=== PATIENT | male | born 1970 | race African-American/Black ===

== ENCOUNTER 2016-07-06 11:48 | Emergency (ER) | payer BC ==
[2016-07-06 12:02] VITALS: BP 154/91
[2016-07-06] MEDS ORDERED: Aspirin Low Dose CHEW TAB* 81 MG PO ONE (12:20)
--- NOTE | 2016-07-06 12:40 | UC ---
Alex Ennis Adam, scribed for Mirtha Blue MD on 07/06/16 at 1154 . Cardiac HPI - HPI Summary HPI Summary: Pt is a 46 year old male presenting with chest pain x 2 days. Pain awoke pt Tuesday am. Has had pain on and off since then. Pain was "bad." Accompanied by chest tightness, hard to take deep breath. No sob perse. Some nausea, no vomiting. Appetite ok, mostly eats at night. ? diaphoresis? No rash. No recent illness. No new new numbness nor weakness, does have chronic sciatica w / p/d L leg. No b/b leakage. ? difficulty word formulating? on Tuesday. No report of recent travel. Denies known hx of NH. Is being tx'd for inc cholesterol, htn (?), via pcp in [facility]. + FMHx of NH (grandmother) CVA (mother), and liver failure from EtOH (father). Pt's PCP is at [facility] in [place], [place]. - History of Current Complaint Stated Complaint: CHEST PAIN Time Seen by Provider: 07/06/16 11:52 Hx Obtained From: Patient Onset/Duration: Sudden Onset, Lasting Days, Still Present Timing: Intermittent Episodes Lasting: - Minutes Initial Severity: Moderate Current Severity: Moderate Chest Pain Location: Diffuse Character: Tightness Aggravating: Exertion Alleviating: Rest Associated Signs & Symptoms: Positive: Dizziness, Nausea/Vomiting - No Vomiting , Abdominal Pain - Risk Factors Cardiac Risk Factors: Smoking, Elevated Lipids, Family History - Allergy/Home Medications Allergies/Adverse Reactions: Allergies Allergy/AdvReac Type Severity Reaction Status Date / Time No Known Allergies Allergy Verified 07/06/16 11:55 Home Medications: Home Medications Amlodipine Besylate [Norvasc] 07/06/16 [History] Atorvastatin* [Lipitor 10 MG*] 07/06/16 [History] Hydrochlorothiazide [Microzide-] 07/06/16 [History] PMH/Surg Hx/FS Hx/Imm Hx Previously Healthy: No - see hpi Endocrine History Of: Reports: Dyslipidemia Cardiovascular History Of: Denies: Myocardial Infarction - Family History Known Family History: Positive: Cardiac Disease - [place] (grandmother), Other - CVA (mother), liver failure from EtOH (father) - Social History Occupation: Employed Full-time Lives: With Family Alcohol Use: Occasionally Smoking Status (MU): Current Some Day Smoker Review of Systems Constitutional: Negative Skin: Negative Eyes: Negative ENT: Negative Respiratory: Shortness Of Breath Cardiovascular: Chest Pain Gastrointestinal: Other - see hpi Genitourinary: Negative Motor: Negative Neurovascular: Negative Musculoskeletal: Negative Neurological: Negative Psychological: Negative All Other Systems Reviewed And Are Negative: Yes - Comments Additional Review of Systems Comments: See HPI Physical Exam Triage Information Reviewed: Yes Appearance: Well-Nourished Vital Signs: Initial Vital Signs Temp 98.5 F 07/06/16 11:56 Pulse 98 07/06/16 11:56 Resp 16 07/06/16 11:56 BP 154/91 07/06/16 11:56 Pulse Ox 98 07/06/16 11:56 Vital Signs Reviewed: Yes Eye Exam: Normal ENT Exam: Normal Neck exam: Normal Respiratory: Positive: Chest non-tender - no focal tenderness reproduced; however, points to left ant / lat area as area of pain., Lungs clear, Normal breath sounds, No respiratory distress, No accessory muscle use Cardiovascular Exam: Normal Cardiovascular: Positive: RRR, No Murmur, Pulses Normal, Brisk Capillary Refill Abdominal Exam: Normal Abdomen Description: Positive: Nontender, No Organomegaly, Soft Bowel Sounds: Positive: Present Musculoskeletal Exam: Normal Neurological Exam: Normal Psychological Exam: Normal Skin Exam: Normal - Additional Comments * Appearance: Well-Nourished * Eye Exam: Normal * ENT Exam: Normal * Neck exam: Normal, No adenopathy appreciated * Respiratory Exam: Normal, no dyspnea, no tachypnea, normal respiratory rate * Cardiovascular Exam: Normal * Cardiovascular: Heart rate regular, good general skin color, good capillary refill * Abdominal Exam: Normal * Abdomen Description: Nontender, No Organomegaly, Soft * Bowel Sounds: Present * Musculoskeletal Exam: Normal * Musculoskeletal: Strength Intact * Neurological Exam: Normal: nonfocal, grossly intact * Psychological Exam: Normal: conversing easily and appropriately Skin Exam: Normal: no visible or reported rash Diagnostics - Laboratory Diagnostic Studies Completed/Ordered: EKG at 11:58. 90 BPM. Nonspecific T abnormalities. - Assessment/Plan Course Of Treatment: Recommend further evaluation and management in the ED. 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 Reviewed EKG (no old available for comparison). ASA 81 mg po x 4 administered here. Patient was offered and encouraged EMS transport to the ED but he politely but firmly declines. He states that he understands the risks of doing so. His significant other will drive him to the ED instead. Questions answered to the best of my ability. - Clinical Impression Provider Diagnoses: Chest pain Discharge - Discharge Plan Condition: Stable Disposition: AGAINST MEDICAL ADVICE Discharge Disposition Comment: Patient declines ambulance and will have family member drive him to the ED. Referrals: No Primary Care Phys,NOPCP [Primary Care Provider] - The documentation as recorded by the Alex keane Adam accurately reflects the service I personally performed and the decisions made by me, Mirtha Blue MD.
== END 2016-07-06 12:40 | disposition left against medical advice (07) ==
LOC: UCEAST 11:48
DX: R07.89 Other chest pain (principal); R42 Dizziness and giddiness; R11.0 Nausea; E78.5 Hyperlipidemia, unspecified; Z72.0 Tobacco use
CPT/HCPCS: 93005; 99202; A9270-GY; G0463

== ENCOUNTER 2016-07-06 13:03 | Emergency (ER) | payer BC ==
[2016-07-06 14:35] LABS: Hematocrit 37 % (42-52); Hemoglobin 13.2 g/dl (14.0-18.0); Mean Corpuscular HGB Conc 36 g/dl (31-36); Mean Corpuscular Hemoglobin 31 pg (27-31); Mean Corpuscular Volume 86 fL (80-94); Mean Platelet Volume 8 um3 (7.4-10.4); Red Blood Count 4.34 10^6/ul (4.0-5.4); Red Cell Distribution Width 13 % (10.5-15); White Blood Count 6.4 10^3/ul (3.5-10.8)
[2016-07-06 14:51] LABS: Albumin 4.9 g/dL (3.2-5.2); BUN/Creatinine Ratio 14.3 (8-20); Calcium 9.8 mg/dL (8.6-10.3); EGFR African American 91.6 (>60); EGFR Non-African American 71.2 (>60); Globulin 2.8 g/dL (2-4); Potassium 3.2 mmol/L (3.5-5.0); Total Bilirubin 0.7 mg/dL (0.2-1.0); Total Protein 7.7 g/dL (6.4-8.9)
--- NOTE | 2016-07-06 14:52 | RAD ---
HISTORY: Chest pain COMPARISONS: None VIEWS: 2: Frontal dual-energy and lateral views of the chest. FINDINGS: CARDIOMEDIASTINAL SILHOUETTE: The cardiomediastinal silhouette is normal. BIANCA: The bianca are normal. PLEURA: The costophrenic angles are sharp. No pleural abnormalities are noted. LUNG PARENCHYMA: The lungs are clear. ABDOMEN: The upper abdomen is clear. There is no subphrenic gas. BONES AND SOFT TISSUES: No bone or soft tissue abnormalities are noted. OTHER: None. IMPRESSION: NO ACTIVE CARDIOPULMONARY DISEASE.
[2016-07-06 15:06] VITALS: BP 140/90
--- NOTE | 2016-07-06 20:36 | ED ---
Marlena Ennis Anna, scribed for Arnold Johnson MD on 07/06/16 at 1407 . HPI Chest Pain - HPI Summary HPI Summary: Patient is a 46 y/o male coming to [facility] presenting with constant, waxing and waning diffuse chest pain that began two days ago. His chest still has some tightness, but the pain has mostly resolved. The pain is described as a severity of 5/10 and is exacerbated by smoking a cigarette. He has had trouble sleeping and has experienced nausea, lightheadedness, dizziness, visual stars, and diaphoresis. The dizziness is exacerbated by deep breaths. He is an everyday smoker. His history is significant for HTN. He has a standing appointment with his PCP, Dr. Kirkpatrick, two days from now. - History of Current Complaint Chief Complaint: EDChestWallPain Time Seen by Provider: 07/06/16 13:59 Hx Obtained From: Patient, Family/Fourth Hand - Accompanied by family Timing: Constant Initial Severity: Moderate Current Severity: Mild Pain Intensity: 5 Pain Scale Used: 0-10 Numeric Chest Pain Location: Diffuse Character: Tightness Aggravating Factor(s): Other: - Smoking a cigarette - Allergy/Home Medications Allergies/Adverse Reactions: Allergies Allergy/AdvReac Type Severity Reaction Status Date / Time No Known Allergies Allergy Verified 07/06/16 11:55 PMH/Surg Hx/FS Hx/Imm Hx Cardiovascular History: Reports: Hx Hypertension Denies: Hx Myocardial Infarction Infectious Disease History: Yes Infectious Disease History: Reports: 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- has been cleared Denies: Traveled Outside the [place] in Last 30 Days - Family History Known Family History: Positive: Cardiac Disease - [place] (grandmother), Other - CVA (mother), liver failure from EtOH (father) - Social History Lives: With Family Alcohol Use: Weekly Alcohol Amount: 6 pack at 1 time Substance Use Type: Reports: None Smoking Status (MU): Current Some Day Smoker Type: Cigarettes Review of Systems Positive: Skin Diaphoresis, Other - difficulty sleeping Positive: Other - visual "stars" Positive: Chest Pain Positive: Nausea Neurological: Other - lightheadedness, dizziness All Other Systems Reviewed And Are Negative: Yes Physical Exam Triage Information Reviewed: Yes Vital Signs On Initial Exam: Initial Vitals Temp Pulse Resp BP Pulse Ox 98.0 F 95 18 142/95 99 07/06/16 13:05 07/06/16 13:05 07/06/16 13:05 07/06/16 13:05 07/06/16 13:05 Vital Signs Reviewed: Yes Appearance: Positive: Well-Appearing, No Pain Distress, Obese Skin: Positive: Warm, Skin Color Reflects Adequate Perfusion, Dry Head/Face: Positive: Normal Head/Face Inspection Eyes: Positive: Normal ENT: Positive: Normal ENT inspection Neck: Positive: Supple, Nontender Respiratory/Lung Sounds: Positive: Clear to Auscultation, Breath Sounds Present Cardiovascular: Positive: RRR Abdomen Description: Positive: Nontender, Soft Musculoskeletal: Positive: Normal Neurological: Positive: Normal Psychiatric: Positive: Affect/Mood Appropriate - [place] Coma Scale Coma Scale Total: 15 Diagnostics - Vital Signs Vital Signs Temp Pulse Resp BP Pulse Ox 07/06/16 13:31 86 19 98 07/06/16 13:30 132/91 07/06/16 13:29 140/96 07/06/16 13:05 98.0 F 95 18 142/95 99 - Laboratory Lab Results: Lab Results 07/06/16 07/06/16 07/06/16 Range/Units 14:28 14:28 14:28 WBC 6.4 (3.5-10.8) 10^3/ul RBC 4.34 (4.0-5.4) 10^6/ul Hgb 13.2 L (14.0-18.0) g/dl Hct 37 L (42-52) % MCV 86 (80-94) fL MCH 31 (27-31) pg MCHC 36 (31-36) g/dl RDW 13 (10.5-15) % Plt Count 174 (150-450) 10^3/ul MPV 8 (7.4-10.4) um3 Neut % (Auto) 59.5 (38-83) % Lymph % (Auto) 31.1 (25-47) % [place] % (Auto) 7.4 (1-9) % Eos % (Auto) 1.5 (0-6) % Baso % (Auto) 0.5 (0-2) % Absolute Neuts (auto) 3.8 (1.5-7.7) 10^3/ul Absolute Lymphs (auto) 2.0 (1.0-4.8) 10^3/ul Absolute Monos (auto) 0.5 (0-0.8) 10^3/ul Absolute Eos (auto) 0.1 (0-0.6) 10^3/ul Absolute Basos (auto) 0 (0-0.2) 10^3/ul Absolute Nucleated RBC 0.01 10^3/ul Nucleated RBC % 0.1 D-Dimer, Quantitative (Less Than 230) ng/mL Sodium 135 (133-145) mmol/L Potassium 3.2 L (3.5-5.0) mmol/L Chloride 99 L (101-111) mmol/L Carbon Dioxide 29 (22-32) mmol/L Anion Gap 7 (2-11) mmol/L BUN 16 (6-24) mg/dL Creatinine 1.12 (0.67-1.17) mg/dL Est GFR ( Amer) 91.6 (>60) Est GFR (Non-Af Amer) 71.2 (>60) BUN/Creatinine Ratio 14.3 (8-20) Glucose 97 (70-100) mg/dL Lactic Acid (0.5-2.0) mmol/L Calcium 9.8 (8.6-10.3) mg/dL Total Bilirubin 0.70 (0.2-1.0) mg/dL AST 43 H (13-39) U/L ALT 77 H (7-52) U/L Alkaline Phosphatase 28 L (34-104) U/L Troponin I 0.00 (<0.04) ng/mL Total Protein 7.7 (6.4-8.9) g/dL Albumin 4.9 (3.2-5.2) g/dL Globulin 2.8 (2-4) g/dL Albumin/Globulin Ratio 1.8 (1-3) HIV 1&2 Antibody Nonreactive (Nonreactive) 07/06/16 07/06/16 Range/Units 14:28 14:28 WBC (3.5-10.8) 10^3/ul RBC (4.0-5.4) 10^6/ul Hgb (14.0-18.0) g/dl Hct (42-52) % MCV (80-94) fL MCH (27-31) pg MCHC (31-36) g/dl RDW (10.5-15) % Plt Count (150-450) 10^3/ul MPV (7.4-10.4) um3 Neut % (Auto) (38-83) % Lymph % (Auto) (25-47) % [place] % (Auto) (1-9) % Eos % (Auto) (0-6) % Baso % (Auto) (0-2) % Absolute Neuts (auto) (1.5-7.7) 10^3/ul Absolute Lymphs (auto) (1.0-4.8) 10^3/ul Absolute Monos (auto) (0-0.8) 10^3/ul Absolute Eos (auto) (0-0.6) 10^3/ul Absolute Basos (auto) (0-0.2) 10^3/ul Absolute Nucleated RBC 10^3/ul Nucleated RBC % D-Dimer, Quantitative < 200 (Less Than 230) ng/mL Sodium (133-145) mmol/L Potassium (3.5-5.0) mmol/L Chloride (101-111) mmol/L Carbon Dioxide (22-32) mmol/L Anion Gap (2-11) mmol/L BUN (6-24) mg/dL Creatinine (0.67-1.17) mg/dL Est GFR ( Amer) (>60) Est GFR (Non-Af Amer) (>60) BUN/Creatinine Ratio (8-20) Glucose (70-100) mg/dL Lactic Acid 1.0 (0.5-2.0) mmol/L Calcium (8.6-10.3) mg/dL Total Bilirubin (0.2-1.0) mg/dL AST (13-39) U/L ALT (7-52) U/L Alkaline Phosphatase (34-104) U/L Troponin I (<0.04) ng/mL Total Protein (6.4-8.9) g/dL Albumin (3.2-5.2) g/dL Globulin (2-4) g/dL Albumin/Globulin Ratio (1-3) HIV 1&2 Antibody (Nonreactive) Result Diagrams: 07/06/16 14:28 07/06/16 14:28 Lab Statement: Any lab studies that have been ordered have been reviewed, and results considered in the medical decision making process. - Radiology CXR Xray Interpretation: No Acute Changes Radiology Interpretation Completed By: Radiologist - IMPRESSION: NO ACTIVE CARDIOPULMONARY DISEASE. - EKG 1326 Cardiac Rate: NL - 79 bpm EKG Rhythm: Sinus Rhythm ST Segment: Normal Ectopy: None Chest Pain Course/Dx - Course Course Of Treatment: Mr. Chang presented with steady chest pain that waxed and waned for 2-3 days. His W/U was negative and I doubt that anything dangerous is happening. I will D/C him for close F/U. - Diagnoses Provider Diagnoses: Chest pain Discharge - Discharge Plan Condition: Stable Disposition: HOME Patient Education Materials: Chest Pain (ED), Chest Wall Pain (ED) Referrals: [facility] PHYSICIAN REFERRAL [Outside] Additional Instructions: Follow up with primary care physician within 48 hours. Return to the emergency department for changing or worsening symptoms. The documentation as recorded by the Marlena keane Anna accurately reflects the service I personally performed and the decisions made by me, Arnold Johnson MD.
== END 2016-07-06 15:36 | disposition home or self-care (01) ==
LOC: ED 13:03
DX: R07.9 Chest pain, unspecified (principal); R61 Generalized hyperhidrosis; R11.0 Nausea; Z72.0 Tobacco use
CPT/HCPCS: 36415; 71020; 80053; 83605; 84484; 85025; 85379; 86703; 93005; 99282

== ENCOUNTER 2016-09-09 10:17 | Emergency (ER) | payer BC, OTHER ==
[2016-09-09 10:32] VITALS: BP 136/80
--- NOTE | 2016-09-09 10:49 | UC ---
Respiratory Complaint HPI - HPI Summary HPI Summary: Woke today with nasal congestion, joint aches, temp over 100F, cough, ST. Denies wheezing or vomiting. 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 - History of Current Complaint Chief Complaint: UCGeneralIllness Stated Complaint: FEVER COUGH CONGESTION Time Seen by Provider: 09/09/16 10:37 Hx Obtained From: Patient Onset/Duration: Sudden Onset, Lasting Hours Timing: Constant Severity Initially: Moderate Severity Currently: Moderate Character: Cough: Nonproductive Aggravating Factors: Exertion, Deep Breaths, Recumbent Position Alleviating Factors: Upright Position Associated Signs And Symptoms: Positive: Fever, Chills, URI, Nasal Congestion - Allergies/Home Medications Allergies/Adverse Reactions: Allergies Allergy/AdvReac Type Severity Reaction Status Date / Time No Known Allergies Allergy Verified 09/09/16 10:32 PMH/Surg Hx/FS Hx/Imm Hx Endocrine History Of: Reports: Dyslipidemia Cardiovascular History Of: Reports: Cardiac Disorders - high cholesterol, Hypertension Denies: Myocardial Infarction - Surgical History Surgical History: None - Family History Known Family History: Positive: Cardiac Disease - [place] (grandmother), Other - CVA (mother), liver failure from EtOH (father) - Social History Occupation: Employed Full-time Lives: With Family Alcohol Use: Weekly Alcohol Amount: 6 pack at 1 time Substance Use Type: None Smoking Status (MU): Current Some Day Smoker Type: Cigarettes Amount Used/How Often: 4 per day Cessation Counseling: Patient Advised to Stop Review of Systems Constitutional: Fever, Chills, Fatigue Skin: Negative Eyes: Negative ENT: Sore Throat, Nasal Discharge Respiratory: Cough Cardiovascular: Negative Gastrointestinal: Negative Genitourinary: Negative Motor: Negative Neurovascular: Negative Musculoskeletal: Negative Neurological: Negative Psychological: Negative All Other Systems Reviewed And Are Negative: Yes Physical Exam Triage Information Reviewed: Yes Appearance: Well-Appearing, Well-Nourished Vital Signs: Initial Vital Signs Temp 98.6 F 09/09/16 10:29 Pulse 91 09/09/16 10:29 Resp 18 09/09/16 10:29 BP 136/80 09/09/16 10:29 Pulse Ox 98 09/09/16 10:29 Vital Signs Reviewed: Yes Eye Exam: Normal Eyes: Positive: Conjunctiva Clear ENT: Positive: Pharynx normal, Nasal congestion, Nasal drainage, TMs normal. Negative: Tonsillar swelling, Tonsillar exudate Dental Exam: Normal Dental: Negative: Percussion Tenderness @ Neck exam: Normal Neck: Positive: Supple, Nontender, No Lymphadenopathy Respiratory Exam: Normal Respiratory: Positive: Chest non-tender, Lungs clear, Normal breath sounds, No respiratory distress, No accessory muscle use Cardiovascular Exam: Normal Cardiovascular: Positive: RRR Musculoskeletal Exam: Normal Musculoskeletal: Positive: ROM Intact Neurological Exam: Normal Neurological: Positive: Alert Psychological Exam: Normal Skin Exam: Normal UC Diagnostic Evaluation - Laboratory O2 Sat by Pulse Oximetry: 98 Respiratory Course/Dx - Differential Dx/Diagnosis Provider Diagnoses: URI, likely viral Discharge - Discharge Plan Condition: Stable Disposition: HOME Patient Education Materials: Upper Respiratory Infection (ED) Forms: *Work Release Additional Instructions: Rapid flu negative.
== END 2016-09-09 11:15 | disposition home or self-care (01) ==
LOC: UCEAST 10:17
DX: J06.9 Acute upper respiratory infection, unspecified (principal); F17.210 Nicotine dependence, cigarettes, uncomplicated; I10 Essential (primary) hypertension
CPT/HCPCS: 87502; 99211; G0463

== ENCOUNTER 2016-09-13 16:50 | Emergency (ER) | payer OTHER ==
[2016-09-13] MEDS ORDERED: EPINEPHrine AMP 1 MG/ML IM ONE (17:48)
[2016-09-13] MEDS ORDERED: methylPREDNISolone 125 MG* 2 ML VIAL IV ONE (17:49)
[2016-09-13] MEDS ORDERED: diPHENhydraMINE IV* 50 MG/ML 1 ml VIAL (BENADRYL) IV ONE (17:50)
[2016-09-13] MEDS ORDERED: Famotidine IV* 10 MG/ML 2 ML (20 mg) IV SLOW PU ONE (17:50)
--- NOTE | 2016-09-13 17:58 | UC ---
rosario Ennis Timothy, scribed for Meli Johnson MD on 09/13/16 at 1732 . 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 He denies any sensation of being stung. He states within 30 minutes the right side of his lip was very swollen. Swelling is only present on his top lip. He is also experiencing some diffuse pruritis with no visible rash. He denies any trouble swallowing, SOB, hoarseness, CP, tongue swelling, nausea, vomiting, or any allergies or current pain. He was stung by a bee 2 years ago with no allergic reaction. He is not in any current pain. His MHx includes HLD, HTN, tobacco use. - History of Current Complaint Chief Complaint: UCAllergicReaction Stated Complaint: SWOLLEN LIP SUDDEN ONSET Time Seen by Provider: 09/13/16 17:32 Hx Obtained From: Patient Onset/Duration: Sudden Onset, Lasting Hours, Still Present Severity Initially: Moderate Severity Currently: Moderate Pain Intensity: 0 Pain Scale Used: 0-10 Numeric Location: Discrete @ - upper lip Character: Swelling Aggrevating Factor(s): Nothing Alleviating Factor(s): Nothing Associated Signs And Symptoms: Positive: Negative. Negative: Chest Pain, Difficulty Breathing, Hoarseness, Nausea, Throat Tightening, Vomiting - Related Hx Possible Reaction To: Insect - Allergies/Home Medications Allergies/Adverse Reactions: Allergies Allergy/AdvReac Type Severity Reaction Status Date / Time No Known Allergies Allergy Verified 09/13/16 17:06 PMH/Surg Hx/FS Hx/Imm Hx Endocrine History Of: Reports: Dyslipidemia Denies: Diabetes, Thyroid Disease Cardiovascular History Of: Reports: Hypertension Denies: Myocardial Infarction Respiratory History Of: Denies: COPD, Asthma GI/ History Of: Denies: Ulcer - Surgical History Surgical History: None Surgery Procedure, Year, and Place: denies - Family History Known Family History: Positive: Cardiac Disease - [place] (grandmother), Other - CVA (mother), liver failure from EtOH (father) - Social History Occupation: Employed Full-time Lives: With Family Alcohol Use: Weekly Alcohol Amount: 6 pack at 1 time Substance Use Type: None Smoking Status (MU): Current Some Day Smoker Type: Cigarettes Amount Used/How Often: 4 per day - Immunization History Most Recent Influenza Vaccination: denies Review of Systems Constitutional: Negative Skin: Other - upper lip swelling, diffuse pruritus without noticeable rash Eyes: Negative ENT: Negative Respiratory: Negative Cardiovascular: Negative Gastrointestinal: Negative Genitourinary: Negative Motor: Negative Neurovascular: Negative Musculoskeletal: Negative Neurological: Negative Psychological: Negative All Other Systems Reviewed And Are Negative: Yes Physical Exam Triage Information Reviewed: Yes Appearance: No Pain Distress, Well-Nourished, Ill-Appearing Vital Signs: Initial Vital Signs Temp 97.3 F 09/13/16 17:00 Pulse 86 09/13/16 17:00 Resp 18 09/13/16 17:00 BP 127/82 09/13/16 17:00 Pulse Ox 100 09/13/16 17:00 Vital Signs Reviewed: Yes Eyes: Positive: Conjunctiva Clear ENT: Positive: Normal ENT inspection, Hearing grossly normal, Pharynx normal - no uvula edema, TMs normal, Other: - no tongue swelling. Negative: Muffled/ hoarse voice Neck: Positive: Supple, Nontender, No Lymphadenopathy Respiratory: Positive: Lungs clear, Normal breath sounds, No respiratory distress. Negative: Wheezing Cardiovascular: Positive: RRR, No Murmur, Pulses Normal, Brisk Capillary Refill Musculoskeletal: Positive: Strength Intact, ROM Intact Neurological: Positive: Alert, Muscle Tone Normal Psychological Exam: Normal Psychological: Positive: Age Appropriate Behavior Skin: Positive: Other - swelling of the upper lip, no obvious sign of insect sting on the lip, no rash or hives noted Allergic Reaction Course/Dx - Course Course Of Treatment: Carmelo Chang is a 46 yo male presenting to [facility] with swelling of his upper lip since 1430 today while working outside. He denies any throat tightening. PT medication list reviewed this visit. Pt received epinepherine, benadryl, pepcid, and Solu-Medrol at [facility]. After clinical examination as well as discussion with Dr. Flowers, he will be transferred to [facility] by ambulance for further observation and evaluation of his acute allergic reaction. - Differential Dx/Diagnosis Differential Diagnosis/HQI/PQRI: Anaphylaxis, Angioedema, Local Allergic Reaction Provider Diagnoses: acute allergic reaction with lip swelling - Physician Notification/Consults Discussed Patient Care With: 1745 - Dr. Flowers ([facility]) - discussed Pt condition, accepts Pt for transfer. 175 - [facility] - discussed Pt condition, requested ambulance for transfer. Instructed by Provider To: MD Will See In ED Discharge - Discharge Plan Condition: Stable Disposition: TRANS HIGHER LVL OF CARE FAC Discharge Disposition Comment: transferred to [facility] for further observation and evaluation Referrals: No Primary Care Phys,NOPCP [Primary Care Provider] - The documentation as recorded by the rosario keane Timothy accurately reflects the service I personally performed and the decisions made by me, Meli Johnson MD.
[2016-09-13] MEDS ORDERED: NS 0.9% 1000 ML* 1,000 ML IV ONE (17:59)
[2016-09-13 19:49] VITALS: BP 150/84
== END 2016-09-13 18:25 | disposition short-term general hospital (02) ==
LOC: UCEAST 16:50
DX: T78.40XA Allergy, unspecified, initial encounter (principal); X58.XXXA Exposure to other specified factors, initial encounter; K13.0 Diseases of lips; I10 Essential (primary) hypertension; F17.210 Nicotine dependence, cigarettes, uncomplicated; E78.5 Hyperlipidemia, unspecified
CPT/HCPCS: 96361; 96372; 96374; 96375; 99213; G0463; J0171; J1200; J2930

== ENCOUNTER → 2016-09-13 18:41 | Emergency (ER) | payer OTHER ==
[~2016-09-13 18:41] MED LIST: diPHENhydraMINE IV* 50 MG/ML 1 ml VIAL (BENADRYL) IV ONE
--- NOTE | 2016-09-13 20:44 | ED ---
I, Oh,Alysia, scribed for Hans Fletcher MD on 09/13/16 at 1936 . Allergic Reaction/Systemic - HPI Summary HPI Summary: This 46 y/o male presents to ED for swollen lips since 1430 PM today. Negative dyspnea or throat tightening. Pt took benadryl and [facility] where [facility] given epi, benadryl, and pepcida about an hour ago [facility] to ED. Pt states that his lip swelling has only gotten worse and has not been alleviated by meds given at [facility]. Pt denies any known allergies of any kind. - History of Current Complaint Chief Complaint: EDAllergicReaction Time Seen by Provider: 09/13/16 19:28 Hx Obtained From: Patient, Family/Lease Examiner - family member present at bedside Onset/Duration: Sudden Onset Timing: Constant Location: Discrete @ - lips Character: Swelling Aggravating Factor(s): Nothing Alleviating Factor(s): Nothing Associated Signs And Symptoms: Positive: Negative - Allergies/Home Medications Allergies/Adverse Reactions: Allergies Allergy/AdvReac Type Severity Reaction Status Date / Time No Known Allergies Allergy Verified 09/13/16 17:06 PMH/Surg Hx/FS Hx/Imm Hx Endocrine/Hematology History: Denies: Hx Diabetes, Hx Thyroid Disease Cardiovascular History: Reports: Hx Hypertension Denies: Hx Myocardial Infarction Respiratory History: Denies: Hx Asthma, Hx Chronic Obstructive Pulmonary Disease (COPD) GI History: Denies: Hx Ulcer - Surgical History Surgery Procedure, Year, and Place: denies Infectious Disease History: Denies: Hx Clostridium Difficile, Hx Hepatitis, Hx Human Immunodeficiency Virus (HIV), 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- has been cleared, Hx Shingles, Hx Tuberculosis, Hx Known/Suspected VRE, Hx Known/Suspected VRSA, History Other Infectious Disease, Traveled Outside the [place] in Last 30 Days - Family History Known Family History: Positive: Cardiac Disease - [place] (grandmother), Other - CVA (mother), liver failure from EtOH (father) - Social History Alcohol Use: Weekly Alcohol Amount: 6 pack at 1 time Hx Substance Use: No Substance Use Type: Reports: None Hx Tobacco Use: Yes Smoking Status (MU): Current Some Day Smoker Type: Cigarettes Amount Used/How Often: 4 per day Review of Systems Negative: Fever Negative: Other - throat tightening Negative: Shortness Of Breath Positive: Other - localized lip swelling All Other Systems Reviewed And Are Negative: Yes Physical Exam Triage Information Reviewed: Yes Vital Signs Reviewed: Yes Appearance: Positive: Well-Appearing, No Pain Distress Skin: Positive: Warm, Other - swollen upper lip[ Head/Face: Positive: Normal Head/Face Inspection Eyes: Positive: EOMI, GERONIMO ENT: Positive: Pharynx normal, TMs normal, Other - swollen upper lip[ Neck: Positive: Supple, Nontender Respiratory/Lung Sounds: Positive: Clear to Auscultation, Breath Sounds Present Cardiovascular: Positive: RRR Abdomen Description: Positive: Nontender, Soft Bowel Sounds: Positive: Present Musculoskeletal: Positive: Strength/ROM Intact Neurological: Positive: Sensory/Motor Intact, Alert, Oriented to Person Place, Time, Normal Gait Psychiatric: Positive: Anxious AVPU Assessment: Alert Diagnostics - Laboratory Result Diagrams: 09/13/16 21:00 09/13/16 21:00 Lab Statement: Any lab studies that have been ordered have been reviewed, and results considered in the medical decision making process. Re-Evaluation - Re-Evaluation First Eval Re-Evaluation Time: 00:33 Change: Improved Comment: MD in room to re-evaluate pt. pt observed 6 hours in ed, mildly decreased swelling, no sob lungs clwar, will d/c on steroids, benadryl, to f/u with pig handler, return for worsening sxs Allergic Reaction Course/Dx - Diagnoses Provider Diagnoses: Swollen upper lip Discharge - Discharge Plan Condition: Stable Disposition: HOME Prescriptions: Epinephrine [Epipen 2-Kelton] 0.3 mg IM BID #1 inj diPHENhydraMINE PO* [Benadryl PO 25 MG TAB*] 25 mg PO Q6H #20 tab predniSONE TAB* [Deltasone TAB*] 40 mg PO DAILY #8 tab Patient Education Materials: Prednisone (By mouth), Diphenhydramine (By mouth) , Epinephrine (Into the eye), Epinephrine (By injection), General Allergic Reaction (ED) Referrals: Sheeba Kolb [Physician Parlor Maid] - 2 Days The documentation as recorded by the Pepe keane Soohyun accurately reflects the service I personally performed and the decisions made by me, Hans Fletcher MD.
[2016-09-13 21:11] LABS: Hematocrit 38 % (42-52); Hemoglobin 13.3 g/dl (14.0-18.0); Mean Corpuscular HGB Conc 35 g/dl (31-36); Mean Corpuscular Hemoglobin 31 pg (27-31); Mean Corpuscular Volume 89 fL (80-94); Mean Platelet Volume 8 um3 (7.4-10.4); Red Blood Count 4.31 10^6/ul (4.0-5.4); Red Cell Distribution Width 13 % (10.5-15); White Blood Count 9.1 10^3/ul (3.5-10.8)
[2016-09-13 21:26] LABS: BUN/Creatinine Ratio 12.6 (8-20); C Reactive Protein 47.76 mg/L (< 5.00); Calcium 9.5 mg/dL (8.6-10.3); EGFR African American 100.9 (>60); EGFR Non-African American 78.5 (>60); Potassium 3.4 mmol/L (3.5-5.0)
[2016-09-14 03:12] VITALS: BP 133/61
== END | disposition home or self-care (01) ==
LOC: ED 18:41
DX: R22.0 Localized swelling, mass and lump, head (principal)
CPT/HCPCS: 36415; 80048; 85025; 86140; 96374; 99283

== ENCOUNTER 2017-04-04 10:20 | Emergency (ER) | payer OTHER ==
--- NOTE | 2017-04-04 11:58 | UC ---
[facility] HPI <Jordy Polo - Last Filed: 04/04/17 13:12> - HPI Summary HPI Summary: Pt presents with lower left sided dental pain. He tells me that he went to the dentist 4 days ago for a routine cleaning and cavity filling on his right side. The next day he had mild pain in the lower left side of his mouth and gums. This pain has increased every day since. He called his dentist and they advised him to come here for an antibiotic and they will follow up with him on Tuesday ( 4 days from today). He denies fevers, chills, SOB, chest pain, cough, sinus congestion, or sore throat. He is able to eat and drink, but with pain. He has taken some ibuprofen for the pain with mild relief. He also mentions that he has been having right knee pain for the past 1- 1.5months. He denies specific injury, but he is very active at work. 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 He saw his PCP for this about a month ago and he suggested an MRI, but pt wanted to try conservative measures at that time. He is still having pain and occasional swelling of his knee. He feels unstable when walking and feels his knee "clicking" at times. He has been wearing a knee brace at home with mild relief. His BP is high at today's visit. He tells me that he forgot to take his BP medications this morning and usually runs this high or higher when he does not take them. He denies vision changes, headaches, palpitations, or dizziness. - History of Current Complaint Hx Obtained From: Patient Onset/Duration: Gradual Onset Severity: Severe Pain Intensity: 10 Pain Scale Used: 0-10 Numeric Aggravating Factor(s): Chewing <Ayad Lopez - Last Filed: 04/04/17 13:36> - History of Current Complaint Chief Complaint: UCDentalProblem Stated Complaint: TOOTH PAIN Time Seen by Provider: 04/04/17 11:51 - Allergies/Home Medications Allergies/Adverse Reactions: Allergies Allergy/AdvReac Type Severity Reaction Status Date / Time No Known Allergies Allergy Verified 04/04/17 11:14 PMH/Surg Hx/FS Hx/Imm Hx Cardiovascular History: Hypertension - Surgical History Surgical History: None Surgery Procedure, Year, and Place: denies - Family History Known Family History: Positive: Cardiac Disease - [place] (grandmother), Other - CVA (mother), liver failure from EtOH (father) - Social History Occupation: Employed Full-time Lives: With Family Alcohol Use: Weekly Alcohol Amount: 6 pack at 1 time Substance Use Type: None Smoking Status (MU): Current Some Day Smoker Type: Cigarettes Amount Used/How Often: 4 per day Cessation Counseling: Counseled 3+Min - 10 Min - Immunization History Most Recent Influenza Vaccination: denies <Ayad Lopez - Last Filed: 04/04/17 13:36> Review of Systems Constitutional: Negative Skin: Negative Eyes: Negative ENT: Dental Pain - Lower left side Respiratory: Negative Cardiovascular: Negative Neurovascular: Negative Musculoskeletal: Edema - Right knee, Other: - Pain Right knee Neurological: Negative Psychological: Negative All Other Systems Reviewed And Are Negative: Yes <Ayad Lopez - Last Filed: 04/04/17 13:36> Physical Exam Vital Signs: Initial Vital Signs Temp 98.4 F 04/04/17 11:09 Pulse 73 04/04/17 11:09 Resp 16 04/04/17 11:09 BP 188/112 04/04/17 11:09 Pulse Ox 100 04/04/17 11:09 <Jordy Polo - Last Filed: 04/04/17 13:12> Triage Information Reviewed: Yes Appearance: Well-Appearing, Well-Nourished Vital Signs: Initial Vital Signs Temp 98.4 F 04/04/17 11:09 Pulse 73 04/04/17 11:09 Resp 16 04/04/17 11:09 BP 188/112 04/04/17 11:09 Pulse Ox 100 04/04/17 11:09 Vital Signs Reviewed: Yes ENT: Positive: Hearing grossly normal, Pharynx normal, TMs normal, Dental tenderness - Lower left tooth #30, Uvula midline. Negative: Pharyngeal erythema , Nasal congestion, Nasal drainage, TM bulging, TM dull, TM red, Tonsillar swelling, Tonsillar exudate, Muffled voice, Hoarse voice, Sinus tenderness Dental: Positive: Percussion Tenderness @ - Lower left tooth #30 from inside the oral cavity and when percussing from mandible., Cellulitis @ - Lower left tooth #30 along the gum line., Other: - There is no obvious edema or erythema overlying the mandible or neck.. Negative: Dental Fracture @, Abscess @, Bleeding Neck: Positive: Supple, Nontender, No Lymphadenopathy Respiratory: Positive: Chest non-tender, Lungs clear, Normal breath sounds, No respiratory distress, No accessory muscle use Cardiovascular: Positive: RRR, No Murmur, Pulses Normal Musculoskeletal: Positive: Strength Intact - Right LE, ROM Intact - Right knee, Edema @ - Mild generalized edema about right knee, Other: - Right knee: Positive Jh with internal and external rotation. FROM. Strength 5/5. No obvious bony deformities. No patella apprehension. Negative Sandra, A/P drawer , and varus/valgus stress. There is no erythema or ecchymosis and the knee is not warm to touch. Neurological: Positive: Alert, Muscle Tone Normal, Other: - Sensations intact right LE. Psychological: Positive: Age Appropriate Behavior Skin: Negative: rashes <Ayad Lopez - Last Filed: 04/04/17 13:36> Dental Complaint Course/Dx - Course Course Of Treatment: I have seen the patient regarding his knee pain and also the elevated BP brought to my attention. The patient has not taken his bp meds today due to being in a hurry. He states his bp is not unusually elevated today compare to prior readings. He affirms he will take his BP meds when he gets home. 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 He has had right knee pain for 5 weeks, worse with bearing weight. 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 No effusion noted, no erythema, no increased warmth. Do not think this is infected joint, but we will get an xray and refer to ortho for follow up. Agree with dental treatment. <Jordy Polo - Last Filed: 04/04/17 13:12> - Course Course Of Treatment: Likely underlying abscess given superficial cellulitis and localized pain on tooth #30 from inside and outside the oral cavity. He has a fu with his dentist in [address] him on Clindamycin and have him keep his dental fu. Right knee pain - suspect meniscus tear. Low suspicion for fracture or septic joint given there is mild edema, no erythema, no specific injury, no warmth, afebrile, and length of symptoms. XR today NO ACUTE OSSEOUS INJURY. IF SYMPTOMS PERSIST, RECOMMEND REPEAT IMAGING. Will refer to orthopedics for further eval and possible MRI. His BP is high today initially and on recheck. He tells me he did not take his BP meds this morning and usually runs 170+/100+ if he does not. At this [facility] location, we do not have BP medication available to give to him today. I advised him to take his medication daily as prescribed. - Differential Dx/Diagnosis Differential Diagnosis/Dx: Dental Abscess, Odontogenic Pain, Peridontic Disease , Other - Right knee pain. Knee meniscus tear. Knee fracture closed. Provider Diagnoses: Dental abscess tooth #30. Internal derangement of the right knee. Hypertension <Ayad Lopez - Last Filed: 04/04/17 13:36> Discharge <Jordy Polo - Last Filed: 04/04/17 13:12> <Ayad Lopez - Last Filed: 04/04/17 13:36> - Discharge Plan Condition: Stable Disposition: HOME Prescriptions: Clindamycin Cap(NF) [Clindamycin Cap 300 mg Cap(NF)] 300 mg PO Q6H #28 cap Ibuprofen [Advil] 800 mg PO Q6HR PRN #60 cap PRN Reason: Pain Patient Education Materials: Dental Abscess (ED), Meniscus Tear (ED) Forms: *Work Release Referrals: Agus Zamorano NP [Primary Care Provider] - Raphael Scales MD [Medical Doctor] - As Soon As Possible Additional Instructions: If you develop a fever, SOB, chest pain, new or worsening symptoms - please call your PCP or go to the ED. Your blood pressure was high at todays visit. Please see your primary provider within 4 weeks for recheck and re-evaluation. --Please remember to take your daily prescribed medications. 1) May try Oragel OTC for added pain relief 2) Follow up with your dentist as scheduled for Tuesday of this week. Please call orthopedics at the number below to schedule a follow up appointment regarding your right knee pain.
[2017-04-04 12:52] VITALS: BP 175/116
--- NOTE | 2017-04-04 13:20 | RAD ---
HISTORY: Right knee pain COMPARISONS: None VIEWS: 4, Frontal, lateral, and oblique views of the right knee FINDINGS: BONE DENSITY: Normal. BONES: There is no displaced fracture. There is a small inferior patellar enthesophyte. JOINTS: There is minimal patellofemoral osteophyte formation. There is no suprapatellar joint effusion or lipohemarthrosis. ALIGNMENT: There is no dislocation. SOFT TISSUES: Unremarkable. OTHER FINDINGS: None. IMPRESSION: NO ACUTE OSSEOUS INJURY. IF SYMPTOMS PERSIST, RECOMMEND REPEAT IMAGING.
== END 2017-04-04 13:31 | disposition home or self-care (01) ==
LOC: UCEAST 10:20
DX: K04.7 Periapical abscess without sinus (principal); M23.91 Unspecified internal derangement of right knee; I10 Essential (primary) hypertension; F17.210 Nicotine dependence, cigarettes, uncomplicated
CPT/HCPCS: 99212; G0463

== ENCOUNTER 2017-06-10 11:56 | Emergency (ER) | payer OTHER ==
--- OUTSIDE RECORDS SUMMARY | 2017-06-10 12:04 | XMS REPORT ---
:1970 External Reference #:[id number] Author Organization [facility] Address [address] [address] Phone [phone] Care Team Providers Name Role Phone Darby Peters MD Primary Care Physician Unavailable Payers Type Date Identification Numbers Payment Provider Subscriber Commercial Policy Number: [id number] Pawan Chang Group Name: [id number] [address] PayID: [id number] [place] [address] Problems Date Description Provider Status Onset: 12/27/2016 Essential hypertension Agus Zamorano NP Active Onset: 12/27/2016 Alcohol abuse Agus Zamorano NP Active Onset: 03/15/2017 Neck pain Melba Rivera MD Active Onset: 03/15/2017 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 Onset: 03/15/2017 Brachial neuritis Melba Rivera MD Active Onset: 04/06/2017 Derangement of meniscus Giuseppe Hernández MD Active Onset: 04/06/2017 Knee joint effusion Giuseppe Hernández MD Active Family History Date Family Member(s) Problem(s) Comments General Heart Disease General Hypertension General Stroke Father liver failure r/t Etoh Mother Heart Disease Social History Type Date Description Comments Marital Status Single Lives With Spouse Occupation Currently Working [employer] Work Status Currently Working Cigarette Use Light tobacco smoker (10 or fewer cigarettes/day) ETOH Use Currently consumes alcohol ETOH Use Daily alcohol 1 pint liquor, 6 beers Recreational Drug Use Marijuana use Smoking Patient is a current smoker, Smokes 5 cigs per day; smokes every day started age 13 Daily Caffeine Consumes on average 1 cup of Not every day, occasional regular coffee per day Exercise Type/Frequency Exercises regularly Allergies, Adverse Reactions, Alerts Date Description Reaction Status Severity Comments 12/22/2016 Lisinopril angioedema active Medications Medication Date Status Form Strength Qnty SIG Indications Ordering Provider Hydrocodone-Acetam 04/11 Active Tablets 5-325mg 42tab take 1-2 M23.306 Agus inophen /2016 s tablets SLICK Zamorano every 8 hours for pain. Knee Brace/Hinged 04/11 Active Misc wear on M25.561 Agus Bars XL left knee SLICK Zamorano durign the day Meloxicam 03/09 Active Tablets 7.5mg 60tab 1 -2 tablet M25.561 Agus /2016 s by mouth SLICK Zamorano once daily as needed Gabapentin 02/03 Active Capsules 300mg 60cap Take One R20.8 Agus /2016 s Capsule By SLICK Zamorano Mouth In The Morning And At Bedtime Amlodipine Active Tablets 10mg Take One Unknown Besylate /0000 Tablet By Mouth Every Day Hydrochlorothiazid Active Tablets 25mg Take One Unknown e /0000 Tablet By Mouth Every Day Epinephrine Active Solution 0.3mg/0.3 Inject Unknown /0000 Auto-Inje ML Intramuscul ct juan Two Times A Day Knee Sleeve/Open 03/09 Hx Misc 1unit wear on M25.561 Agus Patella/Medium/Henrry /2016 s right knee SLICK Zamorano prene - as needed. 04/11 Gabapentin 01/14 Hx Capsules 100mg 60cap take 3 caps R20.8 Agus /2016 s in the SLICK Zamorano - morning and 02/03 every /2016 at bedtime Lisinopril 01/06 Hx Tablets 10mg 30tab 1 by mouth Agus /2016 s every day SLICK Zamorano - 01/06 Nifedipine ER Hx Tablets 30mg Take One Unknown Osmotic Release /0000 ER 24HR Tablet By - Mouth Every Cyclobenzaprine Hx Tablets 10mg Unknown HCL /0000 - 12/22 Acamprosate Hx Tablets 333mg 2 pills Unknown Calcium /0000 DR three times - daily 03/09 Folic Acid Hx Tablets 1mg 1 daily Unknown /0000 - 03/09 Vitamin B-1 00 Hx Tablets 100mg daily Unknown - 03/09 Clindamycin HCL Hx Capsules 300mg Unknown - 05/11 Medications Administered in Office Medication Date Status Form Strength Qnty SIG Indications Ordering Provider Triamcinolone 04/26/ Injection Giuseppe (Kenalog) 2017 MD Edgar Vital Signs Date Vital Result Comment 05/11/2017 Height 72 inches 6'0" Weight 236.00 lb Heart Rate 83 /min BP Systolic Sitting 124 mmHg BP Diastolic Sitting 71 mmHg Pain Level 5 BMI (Body Mass Index) 32.0 kg/m2 04/27/2017 Height 72 inches 6'0" Weight 236.00 lb Heart Rate 84 /min BP Systolic Sitting 130 mmHg BP Diastolic Sitting 80 mmHg Pain Level 6 BMI (Body Mass Index) 32.0 kg/m2 04/26/2017 Height 72 inches 6'0" Weight 236.00 lb BP Systolic 130 mmHg BP Diastolic 92 mmHg Respiratory Rate 18 /min Body Temperature 97.1 F Pain Level 5 BMI (Body Mass Index) 32.0 kg/m2 04/11/2017 Height 72 inches 6'0" Weight 236.00 lb Heart Rate 97 /min BP Systolic Sitting 136 mmHg BP Diastolic Sitting 94 mmHg Body Temperature 98.2 F O2 % BldC Oximetry 97 % BMI (Body Mass Index) 32.0 kg/m2 04/06/2017 Height 73 inches 6'1" Weight 242.50 lb Heart Rate 86 /min BP Systolic 122 mmHg BP Diastolic 84 mmHg Body Temperature 97.8 F Pain Level 10 BMI (Body Mass Index) 32.0 kg/m2 03/15/2017 Height 72 inches 6'0" Weight 241.00 lb Heart Rate 66 /min BP Systolic Sitting 112 mmHg BP Diastolic Sitting 78 mmHg Pain Level 7 BMI (Body Mass Index) 32.7 kg/m2 03/09/2017 Weight 241.25 lb Heart Rate 87 /min BP Systolic Sitting 130 mmHg BP Diastolic Sitting 82 mmHg O2 % BldC Oximetry 95 % 02/15/2017 Height 72 inches 6'0" Weight 234.25 lb Heart Rate 82 /min BP Systolic Sitting 154 mmHg Rue large cuff BP Diastolic Sitting 100 mmHg Rue large cuff Respiratory Rate 16 /min O2 % BldC Oximetry 98 % On Ra BMI (Body Mass Index) 31.8 kg/m2 Neck Circumference in inches 18 02/14/2017 Height 72 inches 6'0" Weight 237.00 lb Heart Rate 82 /min BP Systolic Sitting 130 mmHg BP Diastolic Sitting 90 mmHg Pain Level 5 BMI (Body Mass Index) 32.1 kg/m2 02/03/2017 Weight 236.00 lb Heart Rate 80 /min BP Systolic Sitting 153 mmHg BP Diastolic Sitting 99 mmHg Body Temperature 97.2 F Pain Level 7 O2 % BldC Oximetry 98 % 01/14/2017 Heart Rate 77 /min BP Systolic Sitting 120 mmHg BP Diastolic Sitting 88 mmHg O2 % BldC Oximetry 98 % 01/06/2017 Heart Rate 72 /min BP Systolic Sitting 140 mmHg BP Diastolic Sitting 98 mmHg BP Systolic Recheck 138 mmHg BP Diastolic Recheck 88 mmHg Pain Level 8 lower back O2 % BldC Oximetry 98 % 12/22/2016 Height 71.75 inches 5'11.75" Weight 227.00 lb Heart Rate 88 /min BP Systolic Sitting 138 mmHg BP Diastolic Sitting 96 mmHg BP Systolic Recheck 136 mmHg BP Diastolic Recheck 92 mmHg O2 % BldC Oximetry 97 % BMI (Body Mass Index) 31.0 kg/m2 Results Test Date Test Result H/L Range Note Laboratory test finding 02/03/2017 C Reactive Protein 1.70 mg/L < 5.00 1 Erythrocyte Sed Rate 11 mm/Hr 0-14 CBC Auto Diff 02/03/2017 White Blood Count 6.7 10^3/uL 3.5-10.8 Red Blood Count 4.35 10^6/uL 4.0-5.4 Hemoglobin 13.4 g/dL Low 14.0-18.0 Hematocrit 38 % Low 42-52 Mean Corpuscular Volume 87 fL 80-94 Mean Corpuscular Hemoglobin 31 pg 27-31 Mean Corpuscular HGB Conc 36 g/dL 31-36 Red Cell Distribution Width 13 % 10.5-15 Platelet Count 190 10^3/uL 150-450 Mean Platelet Volume 9 um3 7.4-10.4 Abs Neutrophils 3.1 10^3/uL 1.5-7.7 Abs Lymphocytes 2.8 10^3/uL 1.0-4.8 Abs Monocytes 0.4 10^3/uL 0-0.8 Abs Eosinophils 0.4 10^3/uL 0-0.6 Abs Basophils 0 10^3/uL 0-0.2 Abs Nucleated RBC 0.01 10^3/uL Granulocyte % 46.5 % 38-83 Lymphocyte % 41.5 % 25-47 Monocyte % 6.3 % 1-9 Eosinophil % 5.3 % 0-6 Basophil % 0.4 % 0-2 Nucleated Red Blood Cells % 0.1 Laboratory test finding 02/02/2017 Rheumatoid Factor <15 IU/mL <15 2 Comp Metabolic Panel 02/02/2017 Sodium 139 mmol/L 133-145 Potassium 3.7 mmol/L 3.5-5.0 Chloride 104 mmol/L 101-111 Co2 Carbon Dioxide 27 mmol/L 22-32 Anion Gap 8 mmol/L 2-11 Glucose 89 mg/dL 70-100 Blood Urea Nitrogen 11 mg/dL 6-24 Creatinine 1.07 mg/dL 0.67-1.17 BUN/Creatinine Ratio 10.3 8-20 Calcium 9.6 mg/dL 8.6-10.3 Total Protein 6.9 g/dL 6.4-8.9 Albumin 4.7 g/dL 3.2-5.2 Globulin 2.2 g/dL 2-4 Albumin/Globulin Ratio 2.1 1-3 Total Bilirubin 0.50 mg/dL 0.2-1.0 Alkaline Phosphatase 34 U/L 34-104 Alt 32 U/L 7-52 Ast 25 U/L 13-39 Egfr Non- 75.1 >60 Egfr 96.6 >60 3 Lipid Profile (Trig/Chol/HDL) 12/23/2016 Triglycerides 312 mg/dL 4, 5 Cholesterol 253 mg/dL 4, 6 HDL Cholesterol 57.9 mg/dL 4, 7 LDL Cholesterol 133 mg/dL 4, 8 Laboratory test finding 12/23/2016 Rheumatoid Factor 16 IU/mL <15 4, 9 Connective Tissue Panel 12/23/2016 Anti-Nuclear Antibody 0.2 U 4, 10 Cyclic Citrullinated Peptide <15.6 U 4, 11 Interpretation See Comment 4, 12 Laboratory test finding 12/23/2016 TSH (Thyroid Stim 1.79 mcIU/mL 0.34- 5.60 4, 13 Horm) Vitamin B12 392 pg/mL 180-914 4, 14 Lyme Disease Serology Negative Negative 4, 15 C Reactive Protein 2.20 mg/L < 5.00 4, 16 Erythrocyte Sed Rate 12 mm/Hr 0-14 4, 17 Comp Metabolic Panel 12/23/2016 Sodium 140 mmol/L 133-145 4 Potassium 3.5 mmol/L 3.5-5.0 4 Chloride 102 mmol/L 101-111 4 Co2 Carbon Dioxide 30 mmol/L 22-32 4 Anion Gap 8 mmol/L 2-11 4 Glucose 104 mg/dL High 70-100 4 Blood Urea Nitrogen 15 mg/dL 6-24 4 Creatinine 1.09 mg/dL 0.67-1.17 4 BUN/Creatinine Ratio 13.8 8-20 4 Calcium 10.3 mg/dL 8.6-10.3 4 Total Protein 7.6 g/dL 6.4-8.9 4 Albumin 5.0 g/dL 3.2-5.2 4 Globulin 2.6 g/dL 2-4 4 Albumin/Globulin Ratio 1.9 1-3 4 Total Bilirubin 0.50 mg/dL 0.2-1.0 4 Alkaline Phosphatase 26 U/L Low 34-104 4 Alt 55 U/L High 7-52 4 Ast 42 U/L High 13-39 4 Egfr Non- 73.5 >60 4 Egfr 94.5 >60 4, 18 CBC Auto Diff 12/23/2016 White Blood Count 6.0 10^3/uL 3.5-10.8 4 Red Blood Count 4.67 10^6/uL 4.0-5.4 4 Hemoglobin 14.2 g/dL 14.0-18.0 4 Hematocrit 41 % Low 42-52 4 Mean Corpuscular Volume 87 fL 80-94 4 Mean Corpuscular Hemoglobin 30 pg 27-31 4 Mean Corpuscular HGB Conc 35 g/dL 31-36 4 Red Cell Distribution Width 13 % 10.5-15 4 Platelet Count 209 10^3/uL 150-450 4 Mean Platelet Volume 9 um3 7.4-10.4 4 Abs Neutrophils 3.0 10^3/uL 1.5-7.7 4 Abs Lymphocytes 2.3 10^3/uL 1.0-4.8 4 Abs Monocytes 0.4 10^3/uL 0-0.8 4 Abs Eosinophils 0.3 10^3/uL 0-0.6 4 Abs Basophils 0 10^3/uL 0-0.2 4 Abs Nucleated RBC 0.04 10^3/uL 4 Granulocyte % 50.5 % 38-83 4 Lymphocyte % 37.9 % 25-47 4 Monocyte % 6.6 % 1-9 4 Eosinophil % 4.3 % 0-6 4 Basophil % 0.7 % 0-2 4 Nucleated Red Blood Cells % 0.7 4 1 Acute inflammation: >10.00 2 Test Performed by: [facility] [address] [place] [address] 3 Because ethnic data is not always readily available, this report includes an eGFR for both -Americans and non- Americans. The National Kidney Disease Education Program (NKDEP) does not endorse the use of the MDRD equation for patients that are not between the ages of 18 and 70, are , have extremes of body size, muscle mass, or nutritional status, or are non- or non-. According to the National Kidney Foundation, irrespective of diagnosis, the stage of the disease is based on the level of kidney function: Stage Description GFR(mL/min/1.73 m(2)) 1 Kidney damage with normal or decreased GFR 90 2 Kidney damage with mild decrease in GFR 60-89 3 Moderate decrease in GFR 30-59 4 Severe decrease in GFR 15-29 5 Kidney failure <15 (or dialysis) 4 PT IS FASTING 5 Desirable <150 Borderline high 150-199 High 200-499 Very High >500 6 Desirable <200 Borderline high 200-239 High >239 7 Low <40 Desirable: 40-60 High: >60 8 Desirable: <100 mg/dL Near Optimal: 100-129 mg/dL Borderline High: 130-159 mg/dL High: 160-189 mg/dL Very High: >189 mg/dL 9 Test Performed by: [facility] [address] [place] [address] 10 REFERENCE VALUE <=1.0 (Negative) 11 REFERENCE VALUE <20.0 (Negative) 12 Tests for antibodies to dsDNA and JANNY antigens are not performed automatically unless the PUNEET result is > or= 3.0 U. Studies performed at [facility] indicate that positive PUNEET results <3.0 U are rarely accompanied by positive second order tests. Test Performed by: [facility] [address] [place] [address] 13 PT IS FASTING 14 Normal Range 180 to 914 Indeterminate Range 145 to 180 Deficient Range <145 15 Serologic response to B. burgdorferi infection is not detected, but cannot rule out early infection during which low or undetectable antibody levels to B. burgdorferi may be present. If clinically indicated, a new serum specimen should be submitted in 7-14 days. Test Performed by: [facility] - [address] [address] 16 Acute inflammation: >10.00 17 PT IS FASTING 18 Because ethnic data is not always readily available, this report includes an eGFR for both -Americans and non- Americans. The National Kidney Disease Education Program (NKDEP) does not endorse the use of the MDRD equation for patients that are not between the ages of 18 and 70, are , have extremes of body size, muscle mass, or nutritional status, or are non- or non-. According to the National Kidney Foundation, irrespective of diagnosis, the stage of the disease is based on the level of kidney function: Stage Description GFR(mL/min/1.73 m(2)) 1 Kidney damage with normal or decreased GFR 90 2 Kidney damage with mild decrease in GFR 60-89 3 Moderate decrease in GFR 30-59 4 Severe decrease in GFR 15-29 5 Kidney failure <15 (or dialysis) Procedures Date CPT Code Description Status 04/26/2017 46318 Polysomnography Sleep Staging 4+ Parameters Completed 04/26/2017 51603 Inject/Drain Joint/Bursa Major Completed 01/03/2017 14607 Stress Test Completed Encounters Type Date Location Provider CPT E/M Dx Office Visit 04/26/2017 [facility] [place] [address] M23.306 8:15a [facility] M25.461 M76.51 Office Visit 04/11/2017 4:20p [facility] [place] [address] M23.306 [place] Office Visit 04/06/2017 1:00p [facility] [place] [place] [address] M23.306 [facility] M25.461 M25.561 Office Visit 03/15/2017 10:30a [facility] [place] [address] M50.222 Of Sherrie Rivera MD M50.223 M50.122 M50.123 Office Visit 03/09/2017 4:20p [facility] Internal Medicine Agus Zamorano, SLICK [address] M25.561 - [place] Office Visit 02/15/2017 8:45a [facility] [address] R06.83 Services Of [facility] E66.09 Office Visit 02/14/2017 2:00p [facility] [place] [address] M54.2 Of [facility] MD Nicole Office Visit 02/03/2017 3:20p [facility] Internal Medicine Jordy Vuong, [address] K62.5 - Fadi Baires Office Visit 01/14/2017 2:20p [facility] Internal Medicine Agus Zamorano, SL[place] [address] R20.8 - [place] M50.00 M51.16 Office Visit 01/06/2017 9:20a [facility] [place] [address] M51.16 [place] E78.5 I10 R94.5 Office Visit 12/22/2016 11:00a [facility] [place] [address] I10 [place] F10.10 R53.83 R06.83 R79.82 M25.561 Z13.220 R07.89 Plan of Care Future Appointment(s):06/15/2017 1:30 pm - Melba Rivera MD at [facility]06/07/2017 8:45 am - Giuseppe Hernández MD at [facility]06/15/2017 8:15 am - Lidia Bernstein DNP, RN, AIR QUALITY CONSULTANT -BC at [facility]05/11/2017 - Melba Rivera, MDM50.222 Other cervical disc displacement at C5-C6 yktkjN56.223 Other cervical disc displacement at C6-C7 levelFollow up:1 month
--- OUTSIDE RECORDS SUMMARY | 2017-06-10 12:04 | XMS REPORT ---
:1970 External Reference #:[id number] Author Organization [facility] [employer] Address [address] [address] Phone [phone] Care Team Providers Name Role Phone Darby Peters MD Primary Care Physician Unavailable Payers Type Date Identification Numbers Payment Provider Subscriber Commercial Policy Number: [id number] Pawan Chang Group Name: [id number] [address] PayID: [id number] [place] [address] Problems Date Description Provider Status Onset: 12/27/2016 [...] Single Lives With Spouse Occupation Currently Working [employer] Work Status Currently Working Cigarette Use Light [...] Strength Qnty SIG Indications Ordering Provider Hydrocodone-Acetam 05/20 Active Tablets 7.5-325mg 60tab take 1-2 M23.306 Agus inophen /2017 s tablets SLICK Zamorano every 8 hours as needed for pain. Knee Brace/Hinged 04/11 Active Misc wear on M25.561 Agus Bars XL left knee SLICK Zamorano durign the day Meloxicam 03/09 Active Tablets 7.5mg 60tab 1 -2 tablet M25.561 Agus s by mouth SLICK Zamorano once daily [...] Intramuscul ct juan Two Times A Day Hydrocodone-Acetam 04/11 Hx Tablets 5-325mg 42tab take 1-2 M23.306 Agus inophen s tablets SLICK Zamorano - every 8 05/20 hours for /2017 pain. Knee Sleeve/Open 03/09 Hx Misc 1unit wear on M25.561 Agus Patella/Medium/Henrry /2016 s right knee SLICK Zamorano prene - as needed. 04/11 Gabapentin 01/14 Hx Capsules 100mg 60cap take 3 caps R20.8 Agus /2016 s in the SLICK Zamorano - morning and 02/03 every night at bedtime Lisinopril 01/06 Hx Tablets 10mg 30tab 1 by mouth Agus /2016 s every day SLICK Zamorano - 01/06 Nifedipine ER Hx Tablets 30mg Take One Unknown Osmotic Release /0000 ER 24HR Tablet By - Mouth Every Cyclobenzaprine Hx Tablets 10mg Unknown HCL /0000 - 12/22 Acamprosate 00 Hx Tablets 333mg [address] three times - daily 03/09 Folic Acid Hx Tablets 1mg 1 daily - 03/09 Vitamin B-1 Hx Tablets 100mg daily - 03/09 Clindamycin HCL Hx Capsules 300mg Unknown - 05/11 Medications Administered in Office Medication Date Status Form Strength Qnty SIG Indications Ordering Provider Triamcinolone 04/26/ Administered Injection Giuseppe (Kenalog) 2018 MD Edgar Vital Signs Date Vital Result Comment 05/30/2017 Height 72 inches 6'0" Weight 236.00 lb Heart Rate 97 /min Respiratory Rate 16 /min Body Temperature 98.3 F Pain Level 10 BMI (Body Mass Index) 32.0 kg/m2 05/11/2017 Height 72 inches 6'0" Weight 236.00 [...] Acute inflammation: >10.00 2 Test Performed by: [address] [address] 3 Because ethnic data is not always [...] High: >189 mg/dL 9 Test Performed by: [address] [address] 10 REFERENCE VALUE <=1.0 (Negative) 11 REFERENCE VALUE <20.0 (Negative) 12 Tests for antibodies to dsDNA and JANNY antigens are not performed automatically unless the PUNEET result is > or= 3.0 U. Studies performed at [facility] indicate that positive PUNEET results <3.0 U are rarely accompanied by positive second order tests. Test Performed by: [address] [address] 13 PT IS FASTING 14 Normal Range 180 to 914 Indeterminate Range 145 to 180 Deficient Range <145 15 Serologic response to B. burgdorferi infection is not detected, but cannot rule out early infection during which low or undetectable antibody levels to B. burgdorferi may be present. If clinically indicated, a new serum specimen should be submitted in 7-14 days. Test Performed by: [facility] - [address] [address] 16 Acute inflammation: >10.00 17 PT IS [...] Procedures Date CPT Code Description Status 04/26/2017 52239 Polysomnography Sleep Staging 4+ Parameters Completed 04/26/2017 67138 Inject/Drain Joint/Bursa Major Completed 01/03/2017 09197 Stress Test Completed Encounters Type Date Location Provider CPT E/M Dx Office Visit 05/11/2017 [facility] [place] [address] M50.222 2:30p Of Sherrie Rivera MD M50.223 Office Visit 04/27/2017 1:30p [facility] [place] [address] M50.222 Of Sherrie Rivera MD M50.223 M50.122 Office Visit 04/26/2017 8:15a [facility] [place] [place] [address] M23.306 [facility] M25.461 M76.51 Office Visit 04/11/2017 4:20p [facility] [place] [address] M23.306 [place] Office Visit 04/06/2017 1:00p [facility] [place] [place] [address] M23.306 [facility] M25.461 M25.561 Office Visit 03/15/2017 10:30a [facility] [place] [address] M50.222 Of Sherrie Rivera MD M50.223 M50.122 M50.123 Office Visit 03/09/2017 4:20p [facility] [place] [address] M25.561 - [place] Office Visit 02/15/2017 8:45a [facility] [place] [address] R06.83 Services Of [facility] E66.09 Office Visit 02/14/2017 2:00p [facility] [place] [address] M54.2 Of Sherrie Rivera MD Office Visit 02/03/2017 3:20p [facility] Medicine Jordy Vuong, [address] K62.5 - Fadi Baires Office Visit 01/14/2017 2:20p [facility] [place] [address] R20.8 - [place] M50.00 M51.16 Office Visit 01/06/2017 9:20a [facility] [place] [address] M51.16 [place] E78.5 I10 R94.5 Office Visit 12/22/2016 11:00a [facility] [place] [address] I10 Mary Kate F10.10 R53.83 R06.83 R79.82 M25.561 Z13.220 R07.89 Plan of Care Future Appointment(s):06/21/2017 10:30 am - Melba Rivera MD at [facility]/2017 8:45 am - Giuseppe Hernández MD at [facility]06/15/2017 8:15 am - Lidia Bernstein DNP, RN, DOG HAIR CLIPPER -BC at [facility]
[2017-06-10 14:14] VITALS: BP 144/85
--- NOTE | 2017-06-10 14:32 | UC ---
Respiratory Complaint HPI - HPI Summary HPI Summary: sever frontal and maxillary sinus pain and congestion, thick sputum, cough from nasal drainage - History of Current Complaint Chief Complaint: UCRespiratory Stated Complaint: CONGESTED Time Seen by Provider: 06/10/17 14:26 Hx Obtained From: Patient Onset/Duration: Sudden Onset Severity Initially: Moderate Severity Currently: Severe Pain Intensity: 10 Character: Cough: Nonproductive Aggravating Factors: Nothing Alleviating Factors: Nothing Associated Signs And Symptoms: Positive: Chills, URI, Nasal Congestion, Sinus Discomfort - Allergies/Home Medications Allergies/Adverse Reactions: Allergies Allergy/AdvReac Type Severity Reaction Status Date / Time lisinopril Allergy Rash Verified 06/10/17 12:05 PMH/Surg Hx/FS Hx/Imm Hx Previously Healthy: No Cardiovascular History: Hypertension - Surgical History Surgical History: None Surgery Procedure, Year, and Place: denies - Family History Known Family History: Positive: Cardiac Disease - [place] (grandmother), Other - CVA (mother), liver failure from EtOH (father) - Social History Occupation: Employed Full-time Lives: With Family Alcohol Use: Weekly Alcohol Amount: 6 pack at 1 time Substance Use Type: None Smoking Status (MU): Current Some Day Smoker Type: Cigarettes Amount Used/How Often: 4 per day Have You Smoked in the Last Year: Yes Cessation Counseling: Patient Advised to Stop - Immunization History Most Recent Influenza Vaccination: denies Review of Systems Constitutional: Negative Skin: Negative Eyes: Negative ENT: Sore Throat, Nasal Discharge, Sinus Congestion, Sinus Pain/Tenderness Respiratory: Negative Cardiovascular: Negative Gastrointestinal: Negative Genitourinary: Negative Motor: Negative Neurovascular: Negative Musculoskeletal: Negative Neurological: Headache Psychological: Negative Is Patient Immunocompromised?: No All Other Systems Reviewed And Are Negative: Yes Physical Exam Triage Information Reviewed: Yes Appearance: Well-Nourished, Ill-Appearing, Pain Distress Vital Signs: Initial Vital Signs Temp 98.6 F 06/10/17 12:06 Pulse 97 06/10/17 12:06 Resp 16 06/10/17 12:06 BP 154/96 06/10/17 12:06 Pulse Ox 99 06/10/17 12:06 Vital Signs Reviewed: Yes Eye Exam: Normal Eyes: Positive: Conjunctiva Clear ENT Exam: Normal ENT: Positive: Normal ENT inspection, Hearing grossly normal, Pharynx normal, Nasal congestion, Nasal drainage, TMs normal, Sinus tenderness, Uvula midline. Negative: Tonsillar swelling, Tonsillar exudate, Trismus, Muffled voice, Hoarse voice, Dental tenderness Dental Exam: Normal Neck exam: Normal Neck: Positive: Supple, Nontender, No Lymphadenopathy Respiratory Exam: Normal Respiratory: Positive: Chest non-tender, Lungs clear, Normal breath sounds, No respiratory distress, No accessory muscle use Cardiovascular Exam: Normal Cardiovascular: Positive: RRR, No Murmur, Pulses Normal, Brisk Capillary Refill Musculoskeletal Exam: Normal Musculoskeletal: Positive: Strength Intact, ROM Intact, No Edema Neurological Exam: Normal Neurological: Positive: Alert, Muscle Tone Normal Psychological Exam: Normal Skin Exam: Normal UC Diagnostic Evaluation - Laboratory O2 Sat by Pulse Oximetry: 98 Respiratory Course/Dx - Course Course Of Treatment: Augmentin, flonase, sudafed, tylenol, ibuprofen follow blood pressure with pcp - Differential Dx/Diagnosis Provider Diagnoses: Acute Rhinosinusitis, hypertension in poor control Discharge - Discharge Plan Condition: Stable Disposition: HOME Prescriptions: Amoxicillin/Clavulanate TAB* [Augmentin TAB 875*] 875 mg PO BID #20 tab Fluticasone NASAL SPRAY 50MCG* [Flonase NASAL SPRAY 50MCG*] 2 spray BOTH NARES DAILY #1 btl Patient Education Materials: Sinusitis (ED), Hypertension (ED) Referrals: Darby Peters MD [Primary Care Provider] - 2 Weeks
== END 2017-06-10 14:47 | disposition home or self-care (01) ==
LOC: UCEAST 11:56
DX: J01.90 Acute sinusitis, unspecified (principal); I10 Essential (primary) hypertension; F17.210 Nicotine dependence, cigarettes, uncomplicated
CPT/HCPCS: 99212; G0463

== ENCOUNTER 2017-06-16 08:20 | Day surgery (SDC) | payer OTHER ==
[~2017-06-16 08:20] MED LIST changes: +Buffered Lidocaine 0.9% SYRIN* 5 ML/SYR SYRINGE INTRADERM ONE; +Sodium Citrate/Citric Acid* 15 ML UDC PO ONE; -diPHENhydraMINE IV* 50 MG/ML 1 ml VIAL (BENADRYL) IV ONE
[2017-06-16] MEDS ORDERED: Sodium Citrate/Citric Acid* 15 ML UDC ONE (08:23)
[2017-06-16] MEDS ORDERED: Buffered Lidocaine 0.9% SYRIN* 5 ML/SYR SYRINGE ONE (08:23)
[2017-06-16] MEDS ORDERED: ceFAZolin 2 GM in 100 MLS NS (*) BAG IVPB ONE (08:24)
[2017-06-16] MEDS ORDERED: Lidocaine 1% MPF wEPI 200,000* 30 ML SDV ONE (09:44)
[2017-06-16] MEDS ORDERED: fentaNYL* 50 MCG/ML 2 ML VIAL (100 MCG VIAL) ONE ×3 (10:04→11:34)
[2017-06-16] MEDS ORDERED: Propofol* 10 MG/ML 20 ML BTL IV PUSH ONE ×2 (10:07→10:13)
[2017-06-16] MEDS ORDERED: Lidocaine 2% PF * 5 ML VIAL ONE (10:07)
[2017-06-16] MEDS ORDERED: Ondansetron INJ* 2 MG/ML VIAL IV PRN (10:24)
[2017-06-16] MEDS ORDERED: Naloxone* 0.4 MG/ML 1 ML VIAL IV PRN (10:24)
[2017-06-16] MEDS ORDERED: Dexamethasone IV* 4 MG/ML 1 ML (4 MG) ONE (10:30)
[2017-06-16] MEDS ORDERED: Bupivacaine 0.25% SDV* 30 ML ONE (11:14)
[2017-06-16] MEDS: fentaNYL* 50 MCG/ML 2 ML VIAL (100 MCG VIAL) IV PRN ×4 (11:21→12:05)
[2017-06-16] MEDS ORDERED: oxyCODONE TAB* 5 MG TAB ONE (12:00)
[2017-06-16 12:26] VITALS: BP 161/98
--- NOTE | 2017-06-16 17:22 | OP ---
Operative Report - Blank - Operative Report Date of Operation: 06/16/17 Note: PATIENT: Carmelo Chang DATE OF : 74 DATE OF SURGERY: 06/16/17 SURGEON: Giuseppe Hernández MD [employer] FEEDER: ELENITA Mills , whos assistance was necessary for positioning, retraction, help with instrumentation, and closure. ANESTHESIOLOGIST: Dr. Johnson PREOPERATIVE DIAGNOSIS: right knee effusion and medial meniscus tear. Right knee medial femoral condyle cartilage defect. POSTOPERATIVE DIAGNOSIS: Right knee effusion and medial meniscus tear. Medial compartment osteoarthritic changes. OPERATION: 1. Right knee arthroscopy and partial medial meniscectomy ANESTHESIA: GETA IMPLANTS: none TOURNIQUET TIME: less than one hour, with a well-padded thigh tourniquet SPECIMENS: none ESTIMATED BLOOD LOSS: minimal COMPLICATIONS: none STATUS: Stable from the operating room to the recovery room and then home. INDICATIONS FOR PROCEDURE: He has been dealing with right knee pain and swelling for a few months. He has not improved with rest, immobilization, physical therapy, and a corticosteroid injection. Both operative and non operative treatment alternatives were reviewed. Further, the nature and risks of surgery were reviewed in careful detail, in the office as well as the pre-operative holding area. Our discussions regarding the risks of surgery included, but were not limited to, infection, wound problems, nerve injury, neuroma, RSD, persistent symptoms, blood clot, failure of the surgery, and even the remote chance of catastrophic complication, including loss of limb. DESCRIPTION OF PROCEDURE: The patient was seen in the preoperative holding unit and informed written consent was obtained. The appropriate extremity was marked. The patient was then brought to the operating room and carefully positioned on the operating room table. Anesthesia was induced. All bony prominences were padded with great care. A well-padded thigh tourniquet was placed. A chlorhexidine based pre- scrub was performed followed by a chloraprep prep and drape in standard sterile fashion. A surgical safety pause was then conducted in which we confirmed the appropriate patient, extremity, planned procedure, availability of equipment, indication and administration of prophylactic antibiotics, and DVT prophylaxis in the form of a compression boot on the non-surgical extremity. An Esmarch exsanguination of the limb was then performed and the tourniquet inflated. I began by establishing the anterolateral portal. I utilized a spinal needle for this. A diagnostic knee arthroscopy was performed. This was notable for some tearing of the posterior horn of the medial meniscus, extensive synovitis throughout the knee, and degenerative changes of the medial femoral condyle and medial tibial plateau. Under direct visualization, I then established an anteromedial portal. I utilized the full radius shaver to remove a considerable amount of synovitis from the knee. . I then utilized a biter and shaver to perform a partial medial meniscectomy. The tearing of the posterior horn of the medial meniscus was resected to a stable rim. I did not perform a microfracture because the degenerative changes in the medial compartment were nonfocal. I then again utilized the full radius shaver to remove all additional debris from the joint. I removed the arthroscopic equipment and closed the portals utilizing 3-0 nylon suture. At this point, a sterile dressing was applied. The patient was then awakened from anesthesia and transferred to the recovery room in stable condition. There were no complications. All needle and sponge counts were correct at the end of the case. ATTESTATION: I attest I was present and scrubbed and performed the critical portions of the procedure myself. POSTOPERATIVE PLAN: The patient will remain nonweightbearing for an anticipated duration of 2 weeks. We will then remove the stitches and start physical therapy.
== END 2017-06-16 12:28 | disposition home or self-care (01) ==
LOC: OR 08:20
PROVIDERS: ATTEND Orthopaedic Surgery
DX: M23.203 Derangement of unspecified medial meniscus due to old tear or injury, right knee (principal); M25.461 Effusion, right knee; M17.11 Unilateral primary osteoarthritis, right knee; Z68.31 Body mass index [BMI] 31.0-31.9, adult; I10 Essential (primary) hypertension; F17.210 Nicotine dependence, cigarettes, uncomplicated; G47.33 Obstructive sleep apnea (adult) (pediatric); M54.32 Sciatica, left side
CPT/HCPCS: A9270-GY; J1100; J2001; J2704; J3010

== ENCOUNTER 2017-08-27 07:06 | Emergency (ER) | payer OTHER ==
[2017-08-27] MEDS ORDERED: Dexamethasone TAB* 4 MG PO ONE (07:47)
[2017-08-27] MEDS ORDERED: Dexamethasone IV* 4 MG/ML 1 ML (4 MG) IM ONE (07:55)
--- NOTE | 2017-08-27 08:02 | ED ---
Neck Pain - HPI Summary HPI Summary: Patient here with acute on chronic neck pain. He has a history of cervical disc degeneration with herniation and foraminal narrowing. He has radiculopathy symptoms of decreased sensation in his fourth and fifth digits on the left hand. He's been following with his PCP and Dr. Rivrea who has ordered an MRI that he will have done this week. He has been discussing possible surgical options for his condition. He has used narcotic pain medication on and off over the past few months for this condition (tramadol - caused adverse reaction - then norco, helped at first, but not helping as much now) - most recently, percocet. He only takes the medications as needed and this is confirmed by [facility] - he typically gets about a week supply at a time and does not appear to be abusing this. He also uses the same pharmacy every time. He's had reactions in the past NSAIDs (Aleve and Mobic - gets itching, tinnitus). He's had prednisone in the past without difficulty. He is currently taking gabapentin through his PCP's office for this pain as well. Denies any new symptoms since this condition started - just having a flair up. He does admit he is still active as he has guardianship of his 6-year-old grandson and picks him up from time to time. He also admits he called yesterday afternoon to PCP's office and they could not fill rx on such short notice - he is aware of the 48 hour policy but reports he called so late as he didn't have significant pain prior to this. - History of Current Complaint Chief Complaint: EDPrescriptionNeeded Stated Complaint: NECK PAIN Time Seen by Provider: 08/27/17 07:24 Hx Obtained From: Patient Pain Intensity: 10 - Allergies/Home Medications Allergies/Adverse Reactions: Allergies Allergy/AdvReac Type Severity Reaction Status Date / Time lisinopril Allergy Rash Verified 08/27/17 07:45 NSAIDS (Non-Steroidal Allergy Itching Verified 08/27/17 07:45 Anti-Inflamma Home Medications: Home Medications Hydrochlorothiazide TAB* [Hydrodiuril TAB*] 25 mg PO DAILY 08/27/17 [History Confirmed 08/27/17] PMH/Surg Hx/FS Hx/Imm Hx Previously Healthy: Yes Endocrine/Hematology History: Denies: Hx Diabetes, Hx Thyroid Disease Cardiovascular History: Reports: Hx Hypertension - HCTZ Denies: Hx Myocardial Infarction, Hx Pacemaker/ICD Respiratory History: Denies: Hx Asthma, Hx Chronic Obstructive Pulmonary Disease (COPD) GI History: Denies: Hx Ulcer History: Denies: Hx Renal Disease Musculoskeletal History: Reports: Other Musculoskeletal History - cervical DD w / Lt side radiculopathy Denies: Hx Scoliosis Sensory History: Denies: Hx Contacts or Glasses, Hx Hearing Aid Opthamlomology History: Denies: Hx Contacts or Glasses Neurological History: Denies: Hx Headaches Psychiatric History: Denies: Hx Panic Disorder - Surgical History Surgery Procedure, Year, and Place: ARTHROSCOPY RIGHT KNEE 06/16/15 Hx Anesthesia Reactions: No Infectious Disease History: No Infectious Disease History: Denies: Hx Clostridium Difficile, Hx Hepatitis, Hx Human Immunodeficiency Virus (HIV), 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- has been cleared, Hx Shingles, Hx Tuberculosis, Hx Known/Suspected VRE, Hx Known/Suspected VRSA, History Other Infectious Disease, Traveled Outside the [place] in Last 30 Days - Family History Known Family History: Positive: Cardiac Disease - [place] (grandmother), Other - CVA (mother), liver failure from EtOH (father) - Social History Occupation: Employed Full-time Lives: With Family Alcohol Use: Weekly Alcohol Amount: 6 pack at 1 time Hx Substance Use: No Substance Use Type: Reports: None Hx Tobacco Use: Yes Smoking Status (MU): Current Some Day Smoker Type: Cigarettes Amount Used/How Often: 4 per day Have You Smoked in the Last Year: Yes Review of Systems Constitutional: Negative Negative: Fever, Chills, Fatigue Eyes: Negative Negative: Photophobia, Blurred Vision, Diplopia Positive: Arthralgia, Myalgia. Negative: Edema Skin: Negative Positive: Headache, Paresthesia - lt 4th/5th fingers. Negative: Weakness, Syncope, Slurred Speech Psychological: Normal All Other Systems Reviewed And Are Negative: Yes Physical Exam Triage Information Reviewed: Yes Vital Signs On Initial Exam: Initial Vitals Temp Pulse Resp BP Pulse Ox 97.6 F 80 16 165/97 100 08/27/17 07:15 08/27/17 07:15 08/27/17 07:15 08/27/17 07:15 08/27/17 07:15 Vital Signs Reviewed: Yes Appearance: Positive: Well-Appearing, Well-Nourished, Pain Distress - mild to moderate Skin: Positive: Warm, Skin Color Reflects Adequate Perfusion, Dry Head/Face: Positive: Normal Head/Face Inspection Eyes: Positive: Normal, EOMI, Conjunctiva Clear ENT: Positive: Normal ENT inspection, Hearing grossly normal, Pharynx normal - mucosa moist Neck: Positive: Supple - TTP Respiratory/Lung Sounds: Positive: Breath Sounds Present Cardiovascular: Positive: Pulses are Symmetrical in both Upper and Lower Extremities Musculoskeletal: Positive: Strength/ROM Intact Neurological: Positive: Alert, Oriented to Person Place, Time, CN Intact II- III. Negative: Sensory/Motor Intact - decreased sensation over Lt 4th/5th fingers (pt reports this is baseline for him); motor and strength intact Psychiatric: Positive: Normal Diagnostics - Vital Signs Vital Signs Temp Pulse Resp BP Pulse Ox 08/27/17 07:15 97.6 F 80 16 165/97 100 - Laboratory Lab Statement: Any lab studies that have been ordered have been reviewed, and results considered in the medical decision making process. Neck Course/Dx - Course Course Of Treatment: Will trial course of dexamethasone and short course of percocet for over the weekend pain control. Pt advised to f/u w/ PCP/Darline on Tuesday for further instructions. Discussed the importance of avoiding lifting, reaching, overhead, etc. Reviewed danger s/sx of when to return to ED. Pt agrees w/ plan. - Diagnoses Provider Diagnoses: Discogenic cervical pain Discharge - Sign-Out/Discharge Documenting (check all that apply): Discharge/Admit/Transfer - Discharge Plan Condition: Stable Disposition: HOME Prescriptions: oxyCODONE/Acetamin 5/325 MG* [Percocet 5/325 TAB*] 1 tab PO Q6H PRN #8 tab MDD 4 PRN Reason: Pain Patient Education Materials: Cervical Disc Herniation (ED), Cervical Radiculopathy (ED), How to Stop Smoking (ED) Referrals: Darby Peters MD [Primary Care Provider] - Additional Instructions: You appear to be having an exacerbation of your chronic neck condition. A steroid has been provided for you today to reduce inflammation and pain. You' ve also been given a short course of narcotic pain med to help into the weekend. You can contact your PCP Tuesday for further guidance. Avoid lifting, bending, reaching, etc in the meantime. *If you develop increased numbness, weakness, worsening of pain, difficulty breathing or swallowing, return to the emergency department - Billing Disposition and Condition Condition: STABLE Disposition: HOME
[2017-08-27 08:06] VITALS: BP 157/114
--- OUTSIDE RECORDS SUMMARY | 2017-08-27 08:20 | XMS REPORT ---
:1970 External Reference #:[id number] Author Organization [facility] Address [address] [address] Phone [phone] Care Team Providers Name Role Phone Darby Peters MD Primary Care Physician Unavailable Payers Type Date Identification Numbers Payment Provider Subscriber Commercial Policy Number: [id number] Pawan Chang Group Number: [id number] [address] PayID: [id number] [place] [address] Problems Date Description Provider Status Onset: 12/27/2016 [...] Knee joint effusion Giuseppe Hernández MD Active Onset: 05/30/2017 Current tear of lateral cartilage Giuseppe Hernández MD Active AND/OR meniscus of knee Onset: 06/15/2017 Obstructive sleep apnea syndrome Lidia Bernstein DNP, RN, 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 Family History Date Family Member(s) Problem(s) Comments General Heart Disease General Hypertension General Stroke Father liver failure r/t Etoh Mother Heart Disease Social History Type Date Description Comments Marital Status Single Lives With Spouse Occupation Currently Working [employer] Work Status Currently Working Cigarette Use Light tobacco smoker (10 or fewer cigarettes/day) ETOH Use Currently consumes alcohol ETOH Use Daily alcohol 1 pint liquor, 6 beers Smoking Patient is a current smoker, Smokes 1-5 cigs per day; smokes every day started age 13 Recreational Drug Use Sporadically uses Marijuana Daily Caffeine Occasional soda Daily Caffeine Occasional tea Daily Caffeine Occasional coffee Exercise Type/Frequency Does not exercise Limited until after knee surgery scheduled 06/16/17 Allergies, Adverse Reactions, Alerts Date Description Reaction Status Severity Comments 12/22/2016 Lisinopril angioedema active Medications Medication Date Status Form Strength Qnty SIG Indications Ordering Provider Naproxen 08/09 Active Tablets 500mg 30tab 1 tablet M51.16 Agus s with food Lona, 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 INSTALLER by mouth twice a day Baclofen 08/09 Active Tablets 10mg 30tab take 1/2 M51.16 Agus s tab every 8 Lona, 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 INSTALLER hours as needed for muscle spasm Oxycodone-Acetamin 08/09 Active Tablets 5-325mg 60tab 1-2 tabs by [place] ophen s mouth every Lona, 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 INSTALLER 4-6 hours as needed for pain Knee Brace/Hinged 04/11 Active Misc wear on M25.561 Agus Bars left knee Lona, 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 INSTALLER durign the day Amlodipine Active Tablets 10mg Take One Unknown Besylate /0000 Tablet By Mouth Every Day Hydrochlorothiazid Active Tablets 25mg Take One Unknown e /0000 Tablet By Mouth Every Day Epinephrine Active Solution 0.3mg/0.3 Inject Unknown /0000 Auto-Inje ML Intramuscul ct juan Two Times A Day Amoxicillin/Clavul Active Tablets 875-125mg 1 po bid Unknown anate Potassium /0000 Hydrocodone-Acetam 05/20 Hx Tablets 7.5-325mg 20tab take 1 M23.306 Giuseppe inophen s tablets Edgar, - every 6 MD 08/09 hours needed for post op pain. Hydrocodone-Acetam 04/11 Hx Tablets 5-325mg 42tab take 1-2 M23.306 Agus inophen s tablets Lona, 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 INSTALLER - every 8 05/20 hours for pain. Meloxicam 03/09 Hx Tablets 7.5mg 60tab 1 -2 tablet M25.561 Agus s by mouth SLICK Zamorano - once daily 08/09 as needed Knee Sleeve/Open 03/09 Hx Misc 1unit wear on M25.561 Agus Patella/Medium/Henrry /2016 s right knee SLICK Zamorano prene - as needed. 04/11 Gabapentin 02/03 Hx Capsules 300mg 60cap Take One R20.8 Agus /2016 s Capsule By SLICK Zamorano - Mouth In 08/09 The Morning And At Bedtime Gabapentin 01/14 Hx Capsules 100mg 60cap take 3 caps R20.8 Agus /2016 s in the SLICK Zamorano - morning and 02/03 every night /2016 at bedtime Lisinopril 01/06 Hx Tablets [...] B-1 00 Hx Tablets 100mg daily Unknown /0000 - 03/09 Clindamycin HCL 00/ Hx Capsules 300mg Unknown /0000 - 05/11 Medications Administered in Office Medication Date Status Form Strength Qnty SIG Indications Ordering Provider Triamcinolone 04/26/ Administered Injection Giuseppe (Kenalog) 2017 MD Edgar Vital Signs Date Vital Result Comment 08/09/2017 Weight 241.75 lb Heart Rate 87 /min BP Systolic 132 mmHg BP Diastolic 84 mmHg Body Temperature 97.2 F O2 % BldC Oximetry 85 % 07/06/2017 Height 72 inches 6'0" Weight 234.00 lb Heart Rate 86 /min BP Systolic Sitting 154 mmHg BP Diastolic Sitting 88 mmHg Pain Level 5 BMI (Body Mass Index) 31.7 kg/m2 07/01/2017 Height 72 inches 6'0" Heart Rate 88 /min BP Systolic 132 mmHg BP Diastolic 90 mmHg Respiratory Rate 16 /min Body Temperature 97.6 F Pain Level 3 06/15/2017 Height 72 inches 6'0" Weight 234.50 lb with shoes and keys Heart Rate 80 /min BP Systolic Sitting 160 mmHg Lue large cuff BP Diastolic Sitting 110 mmHg Lue large cuff Respiratory Rate 16 /min O2 % BldC Oximetry 98 % On Ra BMI (Body Mass Index) 31.8 kg/m2 05/30/2017 Height 72 inches 6'0" Weight 236.00 [...] Test Date Test Result H/L Range Note CBC Auto Diff 02/03/2017 White Blood Count [...] Blood Cells % 0.1 Laboratory test finding 02/03/2017 C Reactive Protein 1.70 mg/L < 5.00 1 Erythrocyte Sed Rate 11 mm/Hr 0-14 Comp Metabolic Panel 02/02/2017 Sodium 139 mmol/L [...] Egfr Non- 75.1 >60 Egfr 96.6 >60 2 Laboratory test finding 02/02/2017 Rheumatoid Factor <15 IU/mL <15 3 Comp Metabolic Panel 12/23/2016 Sodium 140 mmol/L [...] 73.5 >60 4 Egfr 94.5 >60 4, 5 CBC Auto Diff 12/23/2016 White Blood Count [...] Nucleated Red Blood Cells % 0.7 4 Laboratory test finding 12/23/2016 TSH (Thyroid Stim 1.79 mcIU/mL 0.34- 5.60 4, 6 Horm) Vitamin B12 392 pg/mL 180-914 4, 7 Lyme Disease Serology Negative Negative 4, 8 C Reactive Protein 2.20 mg/L < 5.00 4, 9 Erythrocyte Sed Rate 12 mm/Hr 0-14 4, 10 Connective Tissue Panel 12/23/2016 Anti-Nuclear Antibody 0.2 U 4, 11 Cyclic Citrullinated Peptide <15.6 U 4, 12 Interpretation See Comment 4, 13 Laboratory test finding 12/23/2016 Rheumatoid Factor 16 IU/mL <15 4, 14 Lipid Profile (Trig/Chol/HDL) 12/23/2016 Triglycerides 312 mg/dL 4, 15 Cholesterol 253 mg/dL 4, 16 HDL Cholesterol 57.9 mg/dL 4, 17 LDL Cholesterol 133 mg/dL 4, 18 1 Acute inflammation: >10.00 2 Because ethnic data is not always readily [...] 15-29 5 Kidney failure <15 (or dialysis) 3 Test Performed by: [place] [address] 4 PT IS FASTING 5 Because ethnic data is not always readily [...] 15-29 5 Kidney failure <15 (or dialysis) 6 PT IS FASTING 7 Normal Range 180 to 914 Indeterminate Range 145 to 180 Deficient Range <145 8 Serologic response to B. burgdorferi infection is not detected, but cannot rule out early infection during which low or undetectable antibody levels to B. burgdorferi may be present. If clinically indicated, a new serum specimen should be submitted in 7-14 days. Test Performed by: [facility] - [address] [address] 9 Acute inflammation: >10.00 10 PT IS FASTING 11 REFERENCE VALUE <=1.0 (Negative) 12 REFERENCE VALUE <20.0 (Negative) 13 Tests for antibodies to dsDNA and JANNY antigens are not performed automatically unless the PUNEET result is > or= 3.0 U. Studies performed at [facility] indicate that positive PUNEET results <3.0 U are rarely accompanied by positive second order tests. Test Performed by: [address] [address] 14 Test Performed by: [address] [address] 15 Desirable <150 Borderline high 150-199 High 200-499 Very High >500 16 Desirable <200 Borderline high 200-239 High >239 17 Low <40 Desirable: 40-60 High: >60 18 Desirable: <100 mg/dL Near Optimal: 100-129 mg/dL Borderline High: 130-159 mg/dL High: 160-189 mg/dL Very High: >189 mg/dL Procedures Date CPT Code Description Status 06/16/2017 33718 Arthroscopy,Knee,Meniscectomy Medial Or Lateral Completed 06/16/2017 04417 Arthroscopy,Knee,Meniscectomy Medial Or Lateral Completed 04/26/2017 30150 Polysomnography Sleep Staging 4+ Parameters Completed 04/26/2017 05310 Inject/Drain Joint/Bursa Major Completed 01/03/2017 99389 Stress Test Completed Encounters Type Date Location Provider CPT E/M Dx Office Visit 07/06/2017 [facility] [place] [address] M50.222 9:30a Of Sherrie Rivera MD M50.223 Office Visit 06/15/2017 8:15a Pulmonology And Sleep Lidia Bernstein, 87991 G47.33 Services Of [facility] TIN, RN, ASSISTANT VICE PRESIDENT- Office Visit 05/30/2017 2:30p Orthopedic [place] Giuseppe Hernán[place] [address] S83.31xA Of [facility] M23.306 M25.461 Office Visit 05/11/2017 2:30p [facility] [place] [address] M50.222 Of Sherrie Rivera MD M50.223 Office Visit 04/27/2017 1:30p [facility] [place] [address] M50.222 Of Sherrie Rivera MD M50.223 M50.122 Office Visit 04/26/2017 8:15a Orthopedic Services [place] Giuseppe Hernán[place] [address] M23.306 [facility] M25.461 M76.51 Office Visit 04/11/2017 4:20p [facility] [place] [address] M23.306 [place] Office Visit 04/06/2017 1:00p Orthopedic Services [place] Giuseppe Hernán[place] [address] M23.306 [facility] M25.461 M25.561 Office Visit 03/15/2017 10:30a [facility] [place] [address] M50.222 Of Sherrie Rivera MD M50.223 M50.122 M50.123 Office Visit 03/09/2017 4:20p [facility] [place] [address] M25.561 - [place] Office Visit 02/15/2017 8:45a [facility] [address] R06.83 Services [facility] E66.09 Office Visit 02/14/2017 2:00p [facility] [place] [address] M54.2 Of Sherrie Rivera MD Office Visit 02/03/2017 3:20p [facility] Internal Medicine Jordy Vuong, 139[address] K62.5 - Fadi Baires Office Visit 01/14/2017 2:20p [facility] [place] [address] R20.8 - [place] M50.00 M51.16 Office Visit 01/06/2017 9:20a [facility] Internal Medicine - Agus Zamorano, SLICK [address] M51.16 [place] E78.5 I10 R94.5 Office Visit 12/22/2016 11:00a [facility] Internal Medicine - Agus Zamorano, SL[place] [address] I10 [place] F10.10 R53.83 R06.83 R79.82 M25.561 Z13.220 R07.89 Plan of Care Future Appointment(s):12/09/2017 10:30 am - Jose Ledezma M.D. at [facility]10/04/2017 4:00 pm - Melba Rivera MD at Neurosurgery [facility]08/30/2017 9:30 am - Giuseppe Hernández MD at [facility]08/09/2017 - Agus Zamorano NPM51.16 Intervertebral disc disorders w radiculopathy, lumbar regionNew Medication:Naproxen 500 mgBaclofen 10 mgNew Labs:Drug Abuse 20 UrineNew Xrays:MRI Lumbar Spine W/ OComments:I have prescribed the baclofen. This may make you tired.Take the naproxen twice daily with food. Useheat frequently to the area.I have ordered the MRI.I am referring you to the pain clinic.Referral:Pain Clinic, Pain/Clinic/ CTR
--- OUTSIDE RECORDS SUMMARY | 2017-08-27 08:20 | XMS REPORT ---
:1970 External Reference #:[id number] Author Organization [facility] Address [address] [place] [address] Phone [phone] Care Team Providers Name Role Phone Agus Zamorano FNP Primary Care Physician Unavailable Payers Type Date Identification Numbers Payment Provider Subscriber Commercial Effective: Policy Number: Olayinka Chang 2016 [id number] [place] Group Number: preet # [id number] Group Name: [place] [address] PayID: [id number] Problems Date Description Provider Status Onset: 07/12/2017 Urticaria Gabi Jackson M.D. Active Onset: 09/28/2016 Angioedema Gabi Jackson M.D. 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 Home Environment Regular Mattress Home Environment Mattress is 3 years old Home Environment Mattress is not encased in an allergy proof case Home Environment Cotton Mattress Cover Home Environment Pillows contain feathers Home Environment Pillows are polyester Home Environment Pillows are encased in an allergy proof case Home Environment Does not use a dehumidifier Home Environment There are draperies in the home Home Environment The home is brandon Home Environment The floors are carpeted Home Environment The floors are tile Home Environment The floors are wood Home Environment Uses propane gas heating Home Environment Negative For Lives in an old house Home Environment [place] Home Environment Water Source: [facility] Smoke-Free Home is not smoke-free Smoke-Free Work is not smoke-free Pets 3 dogs 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 daily every day Allergies, Adverse Reactions, Alerts Date Description Reaction Status Severity Comments 09/28/2016 NKDA active Medications Medication Date Status Form Strength Qnty SIG Indications Ordering Provider Hydrochlorothiazid Active Tablets Unsure one tab Unknown e / daily Amlodopine Active 10mg one tab daily Nifedipine ER Active Tablets 30mg Take One Unknown Osmotic Release / ER 24HR Tablet By Mouth Every Day Epinephrine Active Solution 0.3mg/0.3 Inject Auto-Inje ML Intramuscul ct juan Two Times A Day Vital Signs Date Vital Result Comment 08/16/2017 Height 72 inches 6'0" patient stated Weight 240.00 lb Weight in kg's 108.864 Respiratory Rate 20 /min Heart Rate 85 /min O2 % BldC Oximetry 98 % BP Systolic 145 mmHg BP Diastolic 96 mmHg BMI (Body Mass Index) 32.5 kg/m2 07/12/2017 Height 73 inches 6'1" Weight 240.00 lb Weight in kg's 108.864 Respiratory Rate 18 /min Heart Rate 88 /min O2 % BldC Oximetry 98 % BP Systolic 140 mmHg Rechecked with manual 140/90 BP Diastolic 90 mmHg Rechecked with manual 140/90 BMI (Body Mass Index) 31.7 kg/m2 03/31/2017 Height 73 inches 6'1" Weight 241.00 lb Weight in kg's 109.318 Respiratory Rate 18 /min Heart Rate 99 /min Body Temperature 98.0 F BP Systolic 131 mmHg BP Diastolic 95 mmHg BMI (Body Mass Index) 31.8 kg/m2 10/21/2016 Height 73 inches 6'1" Weight 226.00 lb Weight in kg's 102.514 Respiratory Rate 20 /min Heart Rate 89 /min O2 % BldC Oximetry 97 % BP Systolic 145 mmHg 134/92 manual BP Diastolic 101 mmHg 134/92 manual BMI (Body Mass Index) 29.8 kg/m2 09/28/2016 Height 73 inches 6'1" Weight 231.00 lb Weight in kg's 104.782 Respiratory Rate 16 /min Heart Rate 73 /min O2 % BldC Oximetry 98 % BP Systolic 123 mmHg BP Diastolic 91 mmHg BMI (Body Mass Index) 30.5 kg/m2 Results Test Date Test Result H/L Range Note Laboratory test finding 12/08/2016 CRP High Sensitivity 1.93 mg/L 1 CBC With Auto Diff 10/16/2016 White Blood Count 7.4 10^3/uL 3.5-10.8 Red Blood Count 4.72 10^6/uL 4.0-5.4 Hemoglobin 14.3 g/dL 14.0-18.0 Hematocrit 42 % 42-52 Mean Corpuscular Volume 88 fL 80-94 Mean Corpuscular Hemoglobin 30 pg 27-31 Mean Corpuscular HGB Conc 34 g/dL 31-36 Red Cell Distribution Width 12 % 10.5-15 Platelet Count 176 10^3/uL 150-450 Mean Platelet Volume 9 um3 7.4-10.4 Abs Neutrophils 3.7 10^3/uL 1.5-7.7 Abs Lymphocytes 2.7 10^3/uL 1.0-4.8 Abs Monocytes 0.6 10^3/uL 0-0.8 Abs Eosinophils 0.5 10^3/uL 0-0.6 Abs Basophils 0 10^3/uL 0-0.2 Abs Nucleated RBC 0 10^3/uL Granulocyte % 49.1 % 38-83 Lymphocyte % 36.5 % 25-47 Monocyte % 7.8 % 1-9 Eosinophil % 6.1 % High 0-6 Basophil % 0.5 % 0-2 Nucleated Red Blood Cells % 0 Laboratory test finding 10/16/2016 CRP High Sensitivity 5.21 mg/L 2 Complement C4 38 mg/dL 14 - 40 3 C1 Esterase Inhibitor Ag 37 mg/dL 19 - 37 4 C1 Esterase Inhibitor Function >90 %ofnorm 5 Peanut, IgE w/ Reflex < 0.10 kU/L 6 Anti Nuclear Antibody 0.2 U 7 1 Low risk: <1.00 Average risk: 1.00-3.00 High risk: >3.00 2 Low risk: <1.00 Average risk: 1.00-3.00 High risk: >3.00 3 Test Performed by: [address] [address] 4 Test Performed by: [address] [address] 5 REFERENCE VALUE >67 (Normal) 41-67 (Equivocal) <41 (Abnormal) Test Performed by: [address] [address] 6 Class 0 (Negative <0.10) Reflex testing to peanut components not performed due to undetectable total peanut IgE. Test Performed by: [address] [address] 7 REFERENCE VALUE <=1.0 (Negative) Test Performed by: [address] [address] Procedures Description No Information Encounters Type Date Location Provider CPT E/M Dx Office Visit 08/16/2017 5:20p [facility] AJAY Moreno [address] Z23 L50.9 F17.210 T78.3xxA Office Visit 07/12/2017 5:00p [facility] Gabi Jackson M.D. 92793 L50.9 Office Visit 03/31/2017 9:40a [facility] AJAY Moreno [address] Z23 T78.3xxA Office Visit 10/21/2016 4:20p [facility] AJAY Blanco [address]000 T78.3xxA F17.210 Z68.29 Office Visit 09/28/2016 9:00a [facility] Gabi Jackson M.D. 59127 T78.3xxA Z23 Z68.30 Plan of Care Future Appointment(s):08/23/2017 4:00 pm - AJAY Moreno at [facility]08/23/2017 3:30 pm - Allergy Testing at [facility]09/28/2017 9:40 am - AJAY Moreno at [facility]08/16/2017 - RHONDA Moreno- CZ23 Encounter for qiyjwooiltgdU84.9 Urticaria, hptcuaukwqjO52.210 Nicotine dependence, cigarettes, agowvwtapoukwL51.3xxA Angioneurotic edema, initial encounterRecommendations:Continue all medications as prescribed.Refrain from wearing perfumes/scented colognes while visitingour office. Allergy testing at the next visit for environmental allergens Hold antihistamines for 72 hours prior to testing. Continue the Equate antihistamine 1 daily
== END 2017-08-27 08:03 | disposition home or self-care (01) ==
LOC: ED 07:06
DX: M50.80 Other cervical disc disorders, unspecified cervical region (principal)
CPT/HCPCS: 96372; 99282; J1100

== ENCOUNTER 2017-11-01 10:06 | Emergency (ER) | payer OTHER ==
[2017-11-01 10:14] VITALS: BP 146/99
--- NOTE | 2017-11-01 10:34 | UC ---
Back Pain HPI - HPI Summary HPI Summary: 47 yo male presents with low back pain. He tells me that this is chronic and he has seen neurosurgery and is in the process of schedule an L5-S1 fusion. Sees neurosurg later this week. 2 days ago he was moving things at his house and strained his lower back. He called off work yesterday. Today he went to work, but his work told him to leave and see a doctor. Pt tells me that he would not have come to be seen if it wasn't for his work - his back flares up from time to time and eventually will calm down. He takes oxycodone for pain that helps. Denies new numbness or tingling, loss of bowel/bladder control, or saddle anesthesia. Ambulating without assistance, but with a limp - History of Current Complaint Chief Complaint: UCBackPain Stated Complaint: BACK INJURY Time Seen by Provider: 11/01/17 10:31 Hx Obtained From: Patient Severity Initially: Severe Severity Currently: Severe Pain Intensity: 8 Pain Scale Used: 0-10 Numeric - Allergies/Home Medications Allergies/Adverse Reactions: Allergies Allergy/AdvReac Type Severity Reaction Status Date / Time lisinopril Allergy Rash Verified 10/07/17 13:58 NSAIDS (Non-Steroidal Allergy Itching Verified 10/07/17 13:58 Anti-Inflamma PMH/Surg Hx/FS Hx/Imm Hx Previously Healthy: Yes Cardiovascular History: Hypertension - Surgical History Surgical History: Yes Surgery Procedure, Year, and Place: ARTHROSCOPY RIGHT KNEE 06/16/15 - Family History Known Family History: Positive: Cardiac Disease - CA (grandmother), Other - CVA (mother), liver failure from EtOH (father) - Social History Occupation: Employed Full-time Lives: With Family Alcohol Use: Occasionally Alcohol Amount: HX OF ALCOHOL ABUSE Substance Use Type: None Smoking Status (MU): Current Some Day Smoker Type: Cigarettes Amount Used/How Often: 4 per day Have You Smoked in the Last Year: Yes - Immunization History Most Recent Influenza Vaccination: denies Review of Systems Constitutional: Negative Skin: Negative Respiratory: Negative Cardiovascular: Negative Gastrointestinal: Negative Genitourinary: Negative Neurovascular: Negative Musculoskeletal: Other: - LBP Neurological: Negative Psychological: Negative All Other Systems Reviewed And Are Negative: Yes Physical Exam - Summary Physical Exam Summary: GENERAL: NAD. WDWN. No pain distress. SKIN: No rashes, sores, lesions, or open wounds. NECK: Supple. FROM. Nontender. No lymphadenopathy. CHEST: CTAB. No r/r/w. No accessory muscle use. Breathing comfortably and in no distress. CV: RRR. Without m/r/g. Pulses intact. Brisk cap refill. MSK: Pain with flexion and extension of spine. Positive SLR b/l. NTTP lumbar paraspinal muscles. Strength 5/5 B/L LEs including dorsiflexion and plantar flexion. FROM B/L LEs. No edema. NEURO: Alert. CN II-XII grossly intact. Sensations intact B/L LEs L3-S1. PSYCH: Age appropriate behavior. Triage Information Reviewed: Yes Vital Signs: Initial Vital Signs Temp 98 F 11/01/17 10:11 Pulse 100 11/01/17 10:11 Resp 18 11/01/17 10:11 BP 146/99 11/01/17 10:11 Pulse Ox 100 11/01/17 10:11 Back Pain Course/Dx - Course Course Of Treatment: Suspect low back strain. Will try lidoderm patches for pain. He is asking to return to work, but with light duty. I advised him that it is likely he will need a note in the future to return to work full duty and this would have to come from his neurosurgeon or a specialist. He was agreeable to this plan. - Differential Dx/Diagnosis Provider Diagnoses: Low back pain Discharge - Sign-Out/Discharge Documenting (check all that apply): Discharge/Admit/Transfer - Discharge Plan Condition: Stable Disposition: HOME Prescriptions: Lidocaine PATCH 5%* [Lidoderm 5% Patch*] 1 patch TRANSDERM DAILY #1 box Patient Education Materials: Back Pain (ED) Forms: *Work Release Referrals: Darby Peters MD [Primary Care Provider] - Additional Instructions: If you develop a fever, shortness of breath, chest pain, new or worsening symptoms - please call your PCP or go to the ED. Your blood pressure was high at todays visit. Please see your primary provider within 4 weeks for recheck and re-evaluation. - Billing Disposition and Condition Condition: STABLE Disposition: Home
== END 2017-11-01 10:51 | disposition home or self-care (01) ==
LOC: UCEAST 10:06
DX: M54.5 Low back pain (principal); F17.210 Nicotine dependence, cigarettes, uncomplicated; Z88.8 Allergy status to other drugs, medicaments and biological substances; Z88.6 Allergy status to analgesic agent
CPT/HCPCS: 99211; G0463

== ENCOUNTER 2017-12-02 07:49 | Emergency (ER) | payer OTHER ==
--- OUTSIDE RECORDS SUMMARY | 2017-12-02 07:57 | XMS REPORT ---
:1970 External Reference #:[id number] Author Organization [facility] Address 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 Rivera MD Active myelopathy Family History Date Family Member(s) Problem(s) Comments General Heart Disease General Hypertension General Stroke Father liver failure r/t Etoh Mother Heart Disease Social History Type Date Description Comments Marital Status Single Lives With Spouse Occupation Currently Working [employer] Work Status Currently Working Cigarette Use Light [...] Form Strength Qnty SIG Indications Ordering Provider Gabapentin 08/19/19 Active Capsules 300mg 60caps Take One R20.8 AgusYesika Albarado Capsule By [employer]LOOR [employer]AN ADJUSTER Mouth In The Morning And AT Bedtime M50.122 Naproxen 08/09/2017 Active Tablets 500mg 30tabs 1 tablet with M51.16 Agusyenny Zamorano NP food by mouth twice a day Baclofen 08/09/2017 Active Tablets 10mg 30tabs take 1/2 tab M50.122 Agus Zamorano NP every 8 hours as needed for muscle spasm M51.16 Oxycodone-Acetaminophen 08/09/2017 Active Tablets 5-325mg 56tabs 1-2 M51.16 Agus tabs by Lona mouth [employer] every 12 hours as needed for pain Knee Brace/Hinged Bars 04/11/2017 Active Misc wear on M25.561 Agus XL left Lona knee [employer]OR PLAN ADJUSTER durign the day Amlodipine Besylate Active Tablets 10mg Take Unknow One n Tablet By Mouth Every Day Hydrochlorothiazide Active Tablets 25mg Take Unknow One n Tablet By Mouth Every Day Epinephrine Active Solution 0.3mg/0. Inject Unknow Auto-Inj 3ML Intramu n ect scularl y Two Times A Day Amoxicillin/Clavulanate Active Tablets 875-125m 1 po Unknow Potassium g bid n Hydrocodone-Acetaminophe 05/20/2017 Hx Tablets 7.5-325m 20tabs take 1 M23.306 Giuseppe n - g tablets Macaul 08/09/2017 every 6 ayMD hours as needed for post op pain. Hydrocodone-Acetaminophe 04/11/2017 Hx Tablets 5-325mg 42tabs take M23.306 Agus n - 1-2 [facility], 05/20/2017 tablets [employer] every 8 hours for pain. Meloxicam 03/09/2017 Hx Tablets 7.5mg 60tabs 1 -2 M25.561 Agus - tablet [place], 08/09/2017 by [employer]ER mouth once daily as needed Knee Sleeve/Open 03/09/2017 Hx Misc 1units wear on M25.561 Gaus Patella/Medium/Neoprene - right [facility], 04/11/2017 knee as FLOOR PLAN ADJUSTER needed. Gabapentin 02/03/2017 Hx Capsules 300mg 60caps Take R20.8 Agus - One [facility], 08/09/2017 Capsule [employer]LOOR [employer]AN ADJUSTER By Mouth In The Morning And AT Bedtime Gabapentin 01/14/2017 Hx Capsules 100mg 60caps take 3 R20.8 Agus - caps in [facility], 02/03/2017 the [employer]OR [employer] AD[employer]ER morning and every night at bedtime Lisinopril 01/06/2017 Hx Tablets 10mg 30tabs 1 by Agus - mouth [facility], 01/06/2017 every [employer]OR [employer]ER day Nifedipine ER Osmotic Hx Tablets 30mg Take Unknow Release - ER 24HR One n 01/06/2017 Tablet By Mouth Every Day Cyclobenzaprine HCL Hx Tablets 10mg Unknow - n 12/22/2016 Acamprosate Calcium Hx Tablets 333mg 2 pills Unknow - DR three n 03/09/2017 times daily Folic Acid Hx Tablets 1mg 1 daily Unknow - n 03/09/2017 Vitamin B-1 Hx Tablets 100mg daily Unknow - n 03/09/2017 Clindamycin HCL Hx Capsules 300mg Unknow - n 05/11/2017 Medications Administered in Office Medication Date Status Form Strength Qnty SIG Indications Ordering Provider Triamcinolone 04/26/ Administered Injection Giuseppe (Kenalog) 2017 MD Edgar Vital Signs Date Vital Result Comment 11/15/2017 Height 72 inches 6'0" Weight 245.00 lb BP Systolic Sitting 122 mmHg BP Diastolic Sitting 78 mmHg Pain Level 8 BMI (Body Mass Index) 33.2 kg/m2 09/02/2017 Height 72 inches 6'0" Weight 245.00 lb BP Systolic 142 mmHg BP Diastolic 90 mmHg Respiratory Rate 18 /min Body Temperature 97.5 F Pain Level 0 BMI (Body Mass Index) 33.2 kg/m2 08/18/2017 Weight 240.00 lb Heart Rate 92 /min BP Systolic 134 mmHg BP Diastolic 85 mmHg Body Temperature 97.2 F O2 % BldC Oximetry 97 % 08/09/2017 Weight 241.75 lb Heart Rate 87 [...] Test Date Test Result H/L Range Note Drug Abuse 20 Urine 09/26/2017 Urine Amphetamine Negative ng/mL 1 Urine Barbiturates Negative ng/mL 2 Urine Benzodiazepines Negative ng/mL 3 Urine Cocaine Negative ng/mL 4 Urine Phencyclidine Negative ng/mL Cutoff: 25 Urine Tetrahydrocannabinol Presumptive Posi <SEE NOTE> ng/mL Cutoff: 50 5 Creatinine, Urine 237.2 mg/dL Specific [place] 1.017 pH 6.7 Oxidants Negative 6 Adulterants Comment Normal Codeine, Ur Not Detected ng/mL Cutoff: 25 7 Rufgqbh-2-mnfs-glucuronide, Ur Not Detected ng/mL 8 Morphine, Ur Not Detected ng/mL Cutoff: 25 9 Gadnroev-5-flvi-glucuronide, U Not Detected ng/mL 10 6-monoacetylmorphine, Ur Not Detected ng/mL Cutoff: 25 11 Hydrocodone, Ur Not Detected ng/mL Cutoff: 25 12 Norhydrocodone, Ur Not Detected ng/mL Cutoff: 25 13 Dihydrocodeine, Ur Not Detected ng/mL Cutoff: 25 14 Hydromorphone, Ur Not Detected ng/mL Cutoff: 25 15 Sdlfapmvveoes2pfxiowyqthzkbvw Not Detected ng/mL 16 Oxycodone, Ur Present ng/mL Cutoff: 25 17 Noroxycodone, Ur Present ng/mL Cutoff: 25 18 Oxymorphone, Ur Not Detected ng/mL Cutoff: 25 19 Qoudqoloyyu-3-brdu-glucuronide Present ng/mL 20 Noroxymorphone, Ur Not Detected ng/mL Cutoff: 25 21 Fentanyl, Ur Not Detected ng/mL Cutoff: 2 22 Norfentanyl, Ur Not Detected ng/mL Cutoff: 2 23 Meperidine, Ur Not Detected ng/mL Cutoff: 25 24 Normeperidine, Ur Not Detected ng/mL Cutoff: 25 25 Naloxone, Ur Not Detected ng/mL Cutoff: 25 26 Viojvrgf-3-nykx-glucuronide, U Not Detected ng/mL 27 Methadone, Ur Not Detected ng/mL Cutoff: 25 28 Eddp, Ur Not Detected ng/mL Cutoff: 25 29 Propoxyphene, Ur Not Detected ng/mL Cutoff: 25 30 Norpropoxyphene, Ur Not Detected ng/mL Cutoff: 25 31 Tramadol, Ur Not Detected ng/mL Cutoff: 25 32 O-desmethyltramadol, Ur Not Detected ng/mL Cutoff: 25 33 Tapentadol, Ur Not Detected ng/mL Cutoff: 25 34 N-desmethyltapentadol, Ur Not Detected ng/mL Cutoff: 50 35 Rfwyodlatr-tgui-qaxlgwzcehb, U Not Detected ng/mL 36 Buprenorphine, Ur Not Detected ng/mL Cutoff: 5 37 Norbuprenorphine, Ur Not Detected ng/mL Cutoff: 5 38 Norbuprenorphine glucuronide Not Detected ng/mL Cutoff: 20 39 Opioid Interpretation See Comment 40 THC Confirmation Urine 09/26/2017 Urine Carboxy THC Confirm 121 ng/mL 41 Urine THC Interpretation Positive. 42 Drug Abuse 20 Urine 08/09/2017 Urine Amphetamine Negative ng/mL 43, 44 Urine Barbiturates Negative ng/mL 43, 45 Urine Benzodiazepines Negative ng/mL 43, 46 Urine Cocaine Negative ng/mL 43, 47 Urine Phencyclidine Negative ng/mL Cutoff: 25 43 Urine Tetrahydrocannabinol Presumptive Posi <SEE NOTE> ng/mL Cutoff: 50 43 , 48 Creatinine, Urine 204.2 mg/dL 43 Specific [place] 1.018 43 pH 5.6 43 Oxidants Negative 43, 49 Adulterants Comment Normal 43 Codeine, Ur Not Detected ng/mL Cutoff: 25 43, 50 Jzktrko-9-fjul-glucuronide, Ur Not Detected ng/mL 43, 51 Morphine, Ur Not Detected ng/mL Cutoff: 25 43, 52 Gtbbfggc-3-zyyf-glucuronide, U Not Detected ng/mL 43, 53 6-monoacetylmorphine, Ur Not Detected ng/mL Cutoff: 25 43, 54 Hydrocodone, Ur Present ng/mL Cutoff: 25 43, 55 Norhydrocodone, Ur Not Detected ng/mL Cutoff: 25 43, 56 Dihydrocodeine, Ur Not Detected ng/mL Cutoff: 25 43, 57 Hydromorphone, Ur Not Detected ng/mL Cutoff: 25 43, 58 Wrllvtspgrhiy4obrmpkpzovyvlar Not Detected ng/mL 43, 59 Oxycodone, Ur Not Detected ng/mL Cutoff: 25 43, 60 Noroxycodone, Ur Present ng/mL Cutoff: 25 43, 61 Oxymorphone, Ur Not Detected ng/mL Cutoff: 25 43, 62 Qolbwcdozuh-1-jhks-glucuronide Not Detected ng/mL 43, 63 Noroxymorphone, Ur Not Detected ng/mL Cutoff: 25 43, 64 Fentanyl, Ur Not Detected ng/mL Cutoff: 2 43, 65 Norfentanyl, Ur Not Detected ng/mL Cutoff: 2 43, 66 Meperidine, Ur Not Detected ng/mL Cutoff: 25 43, 67 Normeperidine, Ur Not Detected ng/mL Cutoff: 25 43, 68 Naloxone, Ur Not Detected ng/mL Cutoff: 25 43, 69 Ewzkofmf-9-rgbi-glucuronide, U Not Detected ng/mL 43, 70 Methadone, Ur Not Detected ng/mL Cutoff: 43, 71 Eddp, Ur Not Detected ng/mL Cutoff: 25 43, 72 Propoxyphene, Ur Not Detected ng/mL Cutoff: 25 43, 73 Norpropoxyphene, Ur Not Detected ng/mL Cutoff: 25 43, 74 Tramadol, Ur Present ng/mL Cutoff: 43, 75 O-desmethyltramadol, Ur Present ng/mL Cutoff: 25 43, 76 Tapentadol, Ur Not Detected ng/mL Cutoff: 25 43, 77 N-desmethyltapentadol, Ur Not Detected ng/mL Cutoff: 50 43, 78 Vfpbfifemu-zxjo-siroggztivz, U Not Detected ng/mL 43, 79 Buprenorphine, Ur Not Detected ng/mL Cutoff: 5 43, 80 Norbuprenorphine, Ur Not Detected ng/mL Cutoff: 5 43, 81 Norbuprenorphine glucuronide Not Detected ng/mL Cutoff: 20 43, 82 Opioid Interpretation See Comment 43, 83 THC Confirmation Urine 08/09/2017 Urine Carboxy THC Confirm 125 ng/mL 43, 84 Urine THC Interpretation Positive. 43, 85 CBC Auto Diff 02/03/2017 White Blood Count [...] C Reactive Protein 1.70 mg/L < 5.00 86 Erythrocyte Sed Rate 11 mm/Hr 0-14 Comp [...] Egfr Non- 75.1 >60 Egfr 96.6 >60 87 Laboratory test finding 02/02/2017 Rheumatoid Factor <15 IU/mL <15 88 CBC Auto Diff 12/23/2016 White Blood Count 6.0 10^3/uL 3.5-10.8 89 Red Blood Count 4.67 10^6/uL 4.0-5.4 89 Hemoglobin 14.2 g/dL 14.0-18.0 89 Hematocrit 41 % Low 42-52 89 Mean Corpuscular Volume 87 fL 80-94 89 Mean Corpuscular Hemoglobin 30 pg 27-31 89 Mean Corpuscular HGB Conc 35 g/dL 31-36 89 Red Cell Distribution Width 13 % 10.5-15 89 Platelet Count 209 10^3/uL 150-450 89 Mean Platelet Volume 9 um3 7.4-10.4 89 Abs Neutrophils 3.0 10^3/uL 1.5-7.7 89 Abs Lymphocytes 2.3 10^3/uL 1.0-4.8 89 Abs Monocytes 0.4 10^3/uL 0-0.8 89 Abs Eosinophils 0.3 10^3/uL 0-0.6 89 Abs Basophils 0 10^3/uL 0-0.2 89 Abs Nucleated RBC 0.04 10^3/uL 89 Granulocyte % 50.5 % 38-83 89 Lymphocyte % 37.9 % 25-47 89 Monocyte % 6.6 % 1-9 89 Eosinophil % 4.3 % 0-6 89 Basophil % 0.7 % 0-2 89 Nucleated Red Blood Cells % 0.7 89 Lipid Profile (Trig/Chol/HDL) 12/23/2016 Triglycerides 312 mg/dL 89, 90 Cholesterol 253 mg/dL 89, 91 HDL Cholesterol 57.9 mg/dL 89, 92 LDL Cholesterol 133 mg/dL 89, 93 Laboratory test finding 12/23/2016 Rheumatoid Factor 16 IU/mL <15 89, 94 Connective Tissue Panel 12/23/2016 Anti-Nuclear Antibody 0.2 U 89, 95 Cyclic Citrullinated Peptide <15.6 U 89, 96 Interpretation See Comment 89, 97 Laboratory test 12/23/2016 TSH (Thyroid Stim 1.79 mcIU/mL 0.34-5.60 89, 98 finding Horm) Vitamin B12 392 pg/mL 180-914 89, 99 Lyme Disease Serology Negative Negative 89, 100 C Reactive Protein 2.20 mg/L < 5.00 89, 101 Erythrocyte Sed Rate 12 mm/Hr 0-14 89, 102 Comp Metabolic Panel 12/23/2016 Sodium 140 mmol/L 133-145 89 Potassium 3.5 mmol/L 3.5-5.0 89 Chloride 102 mmol/L 101-111 89 Co2 Carbon Dioxide 30 mmol/L 22-32 89 Anion Gap 8 mmol/L 2-11 89 Glucose 104 mg/dL High 70-100 89 Blood Urea Nitrogen 15 mg/dL 6-24 89 Creatinine 1.09 mg/dL 0.67-1.17 89 BUN/Creatinine Ratio 13.8 8-20 89 Calcium 10.3 mg/dL 8.6-10.3 89 Total Protein 7.6 g/dL 6.4-8.9 89 Albumin 5.0 g/dL 3.2-5.2 89 Globulin 2.6 g/dL 2-4 89 Albumin/Globulin Ratio 1.9 1-3 89 Total Bilirubin 0.50 mg/dL 0.2-1.0 89 Alkaline Phosphatase 26 U/L Low 34-104 89 Alt 55 U/L High 7-52 89 Ast 42 U/L High 13-39 89 Egfr Non- 73.5 >60 89 Egfr 94.5 >60 89, 103 1 REFERENCE VALUE Cutoff: 500 2 REFERENCE VALUE Cutoff: 200 3 REFERENCE VALUE Cutoff: 100 4 REFERENCE VALUE Cutoff: 150 5 Presumptive Positive Drug confirmation to follow. Presumptive Positive means that the screening method is positive, but the test needs to be run by a confirmatory method before being finalized. ADDITIONAL INFORMATION This report is intended for use in clinical monitoring or management of patients. It is not intended for use in employment-related testing. 6 REFERENCE VALUE Cutoff: 200 mg/L 7 Tylenol 3 8 Metabolite of codeine REFERENCE VALUE Cutoff: 100 9 Avinza, Deborah, MS Contin; Also a minor metabolite (10%) of codeine and can be seen in low concentrations (<2,000 ng/mL) with poppy seed ingestion. 10 Metabolite of morphine REFERENCE VALUE Cutoff: 100 11 Metabolite of heroin 12 Lortab, [place], Vicodin; Also a very minor metabolite of codeine and impurity (<1%) of oxycodone. 13 Metabolite of hydrocodone 14 Metabolite of hydrocodone 15 Dilaudid, Exalgo; Also a metabolite of hydrocodone and a minor (<5%) metabolite of morphine. 16 Metabolite of hydromorphone REFERENCE VALUE Cutoff: 100 17 Endocet, Percocet, Oxycontin 18 Metabolite of oxycodone 19 Numorphan, Opana; Also a metabolite of oxycodone. 20 Metabolite of oxymorphone REFERENCE VALUE Cutoff: 100 21 Metabolite of oxymorphone 22 Actiq, Duragesic, Fentora 23 Metabolite of fentanyl 24 Demerol 25 Metabolite of meperidine 26 Narcan 27 Metabolite of naloxone REFERENCE VALUE Cutoff: 100 28 Dolophine 29 Metabolite of methadone 30 Darvon, Darvocet 31 Metabolite of propoxyphene 32 Tradol, Ultram, Ultracet 33 Metabolite of tramadol 34 Nucynta 35 Metabolite of tapentadol 36 Metabolite of tapentadol REFERENCE VALUE Cutoff: 100 37 Buprenex, Suboxone 38 Metabolite of buprenorphine 39 Metabolite of buprenorphine 40 Test detected the presence of oxycodone and one of its metabolites (noroxycodone) along with cemcfgouipe-9-elgu-glucuronide (metabolite of oxymorphone). Suspect use of oxycodone and oxymorphone within the past three days. ADDITIONAL INFORMATION This test was developed and its performance characteristics determined by [facility] in a manner consistent with CLIA requirements. This test has not been cleared or approved by the U.S. Food and Drug Administration. Test Performed by: [facility] - [place] [employer] [employer] [address] [place] [id number] REFERENCE VALUE Cutoff: 3.0 42 ADDITIONAL INFORMATION This report is intended for use in clinical monitoring and management of patients. It is not intended for use in employment-related testing. This test was developed and its performance characteristics determined by [facility] in a manner consistent with CLIA requirements. This test has not been cleared or approved by the U.S. Food and Drug Administration. Test Performed by: [facility] - [place] [employer] [employer] [address] [place] [id number] REFERENCE VALUE Cutoff: 500 45 REFERENCE VALUE Cutoff: 200 46 REFERENCE VALUE Cutoff: 100 47 REFERENCE VALUE Cutoff: 150 48 Presumptive Positive Drug confirmation to follow. Presumptive Positive means that the screening method is positive, but the test needs to be run by a confirmatory method before being finalized. ADDITIONAL INFORMATION This report is intended for use in clinical monitoring or management of patients. It is not intended for use in employment-related testing. 49 REFERENCE VALUE Cutoff: 200 mg/L 50 Tylenol 3 51 Metabolite of codeine REFERENCE VALUE Cutoff: 100 52 Deborah Vallejo, Contin; Also a minor metabolite (10%) of codeine and can be seen in low concentrations (<2,000 ng/mL) with poppy seed ingestion. 53 Metabolite of morphine REFERENCE VALUE Cutoff: 100 54 Metabolite of heroin 55 Lortab, [place], Vicodin; Also a very minor metabolite of codeine and impurity (<1%) of oxycodone. 56 Metabolite of hydrocodone 57 Metabolite of hydrocodone 58 Dilaudid, Exalgo; Also a metabolite of hydrocodone and a minor (<5%) metabolite of morphine. 59 Metabolite of hydromorphone REFERENCE VALUE Cutoff: 100 60 Endocet, Percocet, Oxycontin 61 Metabolite of oxycodone 62 Numorphan, Opana; Also a metabolite of oxycodone. 63 Metabolite of oxymorphone REFERENCE VALUE Cutoff: 100 64 Metabolite of oxymorphone 65 Actiq, Duragesic, Fentora 66 Metabolite of fentanyl 67 Demerol 68 Metabolite of meperidine 69 Narcan 70 Metabolite of naloxone REFERENCE VALUE Cutoff: 100 71 Dolophine 72 Metabolite of methadone 73 Darvon, Darvocet 74 Metabolite of propoxyphene 75 Tradol, Ultram, Ultracet 76 Metabolite of tramadol 77 Nucynta 78 Metabolite of tapentadol 79 Metabolite of tapentadol REFERENCE VALUE Cutoff: 100 80 Buprenex, Suboxone 81 Metabolite of buprenorphine 82 Metabolite of buprenorphine 83 Test detected the presence of hydrocodone only without any metabolites. Suspect possible adulteration of sample or very recent exposure to hydrocodone. Trace amounts can also be found as an impurity in oxycodone or hydromorphone. Test detected the presence of noroxycodone (metabolite of oxycodone) only. Suspect use of oxycodone within the past three days. Test detected the presence of tramadol and its metabolite (O-desmethyltramadol). Suspect use of tramadol within the past three days. ADDITIONAL INFORMATION This test was developed and its performance characteristics determined by [facility] in a manner consistent with CLIA requirements. This test has not been cleared or approved by the U.S. Food and Drug Administration. Test Performed by: [facility] - [address] [id number] 84 REFERENCE VALUE Cutoff: 3.0 85 ADDITIONAL INFORMATION This report is intended for use in clinical monitoring and management of patients. It is not intended for use in employment-related testing. This test was developed and its performance characteristics determined by [facility] in a manner consistent with CLIA requirements. This test has not been cleared or approved by the U.S. Food and Drug Administration. Test Performed by: [facility] - [address] [address] 86 Acute inflammation: >10.00 87 Because ethnic data is not always readily [...] 15-29 5 Kidney failure <15 (or dialysis) 88 Test Performed by: [facility] - [facility] [address] [place] [address] 89 PT IS FASTING 90 Desirable <150 Borderline high 150-199 High 200-499 Very High >500 91 Desirable <200 Borderline high 200-239 High >239 92 Low <40 Desirable: 40-60 High: >60 93 Desirable: <100 mg/dL Near Optimal: 100-129 mg/dL Borderline High: 130-159 mg/dL High: 160-189 mg/dL Very High: >189 mg/dL 94 Test Performed by: [facility] - [address] [address] 95 REFERENCE VALUE <=1.0 (Negative) 96 REFERENCE VALUE <20.0 (Negative) 97 Tests for antibodies to dsDNA and JANNY antigens are not performed automatically unless the PUNEET result is > or= 3.0 U. Studies performed at [facility] indicate that positive PUNEET results <3.0 U are rarely accompanied by positive second order tests. Test Performed by: [facility] - [address] [address] 98 PT IS FASTING 99 Normal Range 180 to 914 Indeterminate Range 145 to 180 Deficient Range <145 100 Serologic response to B. burgdorferi infection is not detected, but cannot rule out early infection during which low or undetectable antibody levels to B. burgdorferi may be present. If clinically indicated, a new serum specimen should be submitted in 7-14 days. Test Performed by: [facility] - [address] [address] 101 Acute inflammation: >10.00 102 PT IS FASTING 103 Because ethnic data is not always readily [...] dialysis) Procedures Date CPT Code Description Status 06/16/2017 78963 Arthroscopy,Knee,Meniscectomy Medial Or Lateral Completed 06/16/2017 70738 Arthroscopy,Knee,Meniscectomy Medial Or Lateral Completed 04/26/2017 77290 Polysomnography Sleep Staging 4+ Parameters Completed 04/26/2017 08168 Inject/Drain Joint/Bursa Major W/O US Completed 01/03/2017 53500 Stress Test Completed Encounters Type Date Location Provider CPT E/M Dx Office Visit 08/18/2017 11:40a [facility] [place] [address] M50.122 [place] F10.10 Office Visit 08/09/2017 10:40a [facility] [place] [address] M51.16 - [place] Office Visit 07/06/2017 9:30a [facility] [place] [address] M50.222 Of Sherrie Rivera MD M50.223 Office Visit 06/15/2017 8:15a Pulmonology And Sleep Lidia Bernstein, [address] G47.33 Services Of [facility] TIN RN, CASTING ASSOCIATE- Office Visit 05/30/2017 2:30p Orthopedic [place] Giuseppe Hernán[place] [address] S83.31xA [facility] M23.306 M25.461 Office Visit 05/11/2017 2:30p [facility] [place] [address] M50.222 Of Sherrie Rivera MD M50.223 Office Visit 04/27/2017 1:30p [facility] [place] [address] M50.222 Of Sherrie Rivera MD M50.223 M50.122 Office Visit 04/26/2017 8:15a [facility] [place] Giuseppe Hernán[place] [address] M23.306 [facility] M25.461 M76.51 Office Visit 04/11/2017 4:20p [facility] [place] [address] M23.306 [place] Office Visit 04/06/2017 1:00p [facility] [place] Giuseppe Hernán[place] [address] M23.306 [facility] M25.461 M25.561 Office Visit 03/15/2017 10:30a [facility] [place] [address] M50.222 Of Sherrie Rivera MD M50.223 M50.122 M50.123 Office Visit 03/09/2017 4:20p [facility] [place] [address] M25.561 - [place] Office Visit 02/15/2017 8:45a Pul[facility] [address] R06.83 [facility] E66.09 Office Visit 02/14/2017 2:00p [facility] [place] [address] M54.2 Of Sherrie Rivera MD Office Visit 02/03/2017 3:20p [facility] Internal Medicine Jordy Vuong, [address] K62.5 - Fadi Baires Office Visit 01/14/2017 2:20p [facility] [place] [address] R20.8 - [place] M50.00 M51.16 Office Visit 01/06/2017 9:20a [facility] [place] [address] M51.16 [place] E78.5 I10 R94.5 Office Visit 12/22/2016 11:00a [facility] [place] [address] I10 [place] F10.10 R53.83 R06.83 R79.82 M25.561 Z13.220 R07.89 Plan of Care Future Appointment(s):12/01/2017 1:00 pm - Hans Mcgrath MD at [facility]/15/2017 - Melba Rivera, MDM47.26 Other spondylosis with radiculopathy, lumbar regionFollow up:RV in 6 months. Patient will call earlier if he would like to proceed witha L5-S1 ALIF. Please obtain the films ordered and refer to Dr Hartman for evaluation for an L5-S1 ALIF if patient would like to proceed with surgery. If not, follow up in 6 months with the above films.
[2017-12-02] MEDS ORDERED: Acetaminophen TAB* 325 MG PO ONE (08:31)
--- NOTE | 2017-12-02 08:37 | UC ---
Hand/Wrist HPI - HPI Summary HPI Summary: FELT A POP RIGHT MEDIAL WRIST YESTERDAY AFTERNOON WHILE BAILING HAY WITH A PITCHFORK. OVER THE COURSE OF THE EVENING PAIN AND SWELLING INCREASED. PATIENT NOW HAS SIGNIFICANT SWELLING AND DECREASED RANGE OF MOTION. REPORTS PAIN 10 OUT OF 10. - History Of Current Complaint Chief Complaint: UCUpperExtremity Stated Complaint: WRIST INJURY Time Seen by Provider: 12/02/17 08:14 Hx Obtained From: Patient Onset/Duration: Gradual Onset, Lasting Hours, Still Present Severity Initially: Moderate Severity Currently: Severe Pain Intensity: 10 Pain Scale Used: 0-10 Numeric Character Of Pain: Sharp, Aching Aggravating Factor(s): Movement Alleviating Factor(s): Rest Associated Signs And Symptoms: Positive: Swelling Related History: Dominant Hand Right - Allergies/Home Medications Allergies/Adverse Reactions: Allergies Allergy/AdvReac Type Severity Reaction Status Date / Time lisinopril Allergy Rash Verified 12/02/17 08:01 Home Medications: Home Medications Amlodipine Besylate [Norvasc 5 mg tab] 12/02/17 [History] PMH/Surg Hx/FS Hx/Imm Hx Cardiovascular History: Hypertension - Surgical History Surgical History: Yes Surgery Procedure, Year, and Place: ARTHROSCOPY RIGHT KNEE 06/16/15 - Family History Known Family History: Positive: Cardiac Disease - [place] (grandmother), Hypertension , Other - CVA (mother), liver failure from EtOH (father) - Social History Alcohol Use: Occasionally Alcohol Amount: HX OF ALCOHOL ABUSE Substance Use Type: None Smoking Status (MU): Current Some Day Smoker Type: Cigarettes Amount Used/How Often: 4 per day Have You Smoked in the Last Year: Yes - Immunization History Most Recent Influenza Vaccination: denies Review of Systems Constitutional: Negative Respiratory: Negative Cardiovascular: Negative Gastrointestinal: Negative Musculoskeletal: Arthralgia, Decreased ROM, Edema All Other Systems Reviewed And Are Negative: Yes Physical Exam Triage Information Reviewed: Yes Appearance: Well-Appearing, Well-Nourished, Pain Distress - MODERATE Vital Signs: Initial Vital Signs Temp 98.4 F 12/02/17 08:03 Pulse 77 12/02/17 08:03 Resp 18 12/02/17 08:03 BP 182/125 12/02/17 08:03 Pulse Ox 98 12/02/17 08:03 Vital Signs Reviewed: Yes Eyes: Positive: Conjunctiva Clear ENT: Positive: Hearing grossly normal Neck: Positive: Supple Respiratory: Positive: No respiratory distress, No accessory muscle use Cardiovascular: Positive: Pulses Normal Abdomen Description: Positive: Soft Musculoskeletal: Positive: ROM Limited @ - RIGHT WRIST, Edema @ - RIGHT WRIST, Other: - TTP RIGHT WRIST ULNAR SIDE Neurological: Positive: Alert Psychological: Positive: Age Appropriate Behavior Skin: Negative: rashes Diagnostics - Radiology RIGHT WRIST XRAY Xray Interpretation: No Acute Changes Radiology Interpretation Completed By: Radiologist Hand/Wrist Course/Dx - Differential Dx/Diagnosis Provider Diagnoses: RIGHT WRIST SPRAIN Discharge - Sign-Out/Discharge Documenting (check all that apply): Patient Departure - Discharge Plan Condition: Stable Disposition: HOME Patient Education Materials: Wrist Sprain (ED) Forms: *Work Release Referrals: Darby Peters MD [Primary Care Provider] - If Needed Chino Son MD [Medical Doctor] - If Needed Additional Instructions: XRAY TODAY NEGATIVE FOR FRACTURE OR DISLOCATION. YOUR SYMPTOMS SHOULD IMPROVE SIGNIFICANTLY OVER THE NEXT 1-2 WEEKS. IF YOU DO NOT IMPROVE EXPECTED FOLLOW- UP WITH YOUR PCP OR ORTHO. YOU MAY BENEFIT FROM REPEAT IMAGING AT THAT TIME. OTC MEDS NEEDED FOR DISCOMFORT. REST, ICE, COMPRESS, ELEVATE.WEAR THE SPLINT WHILE SLEEPING AND DURING THE DAY ABLE FOR PROTECTION AND SUPPORT. YOUR REPEAT BLOOD PRESSURE WAS ELEVATED TODAY (160/95). THIS MAY BE DUE TO YOUR ACUTE CONDITION. MONITOR AND FOLLOW-UP WITH YOUR PCP WITHIN 4 WEEKS IF IT HAS NOT RETURNED TO NORMAL. - Billing Disposition and Condition Condition: STABLE Disposition: Home
--- NOTE | 2017-12-02 08:53 | RAD ---
INDICATION: Right wrist pain COMPARISON: None TECHNIQUE: AP, lateral, and oblique views were obtained. FINDINGS: The bony structures, joint spaces, and soft tissues are normal for age. IMPRESSION: NEGATIVE EXAMINATION.
[2017-12-02 09:33] VITALS: BP 160/95
== END 2017-12-02 09:41 | disposition home or self-care (01) ==
LOC: UCEAST 07:49
DX: S63.501A Unspecified sprain of right wrist, initial encounter (principal); X50.3XXA Overexertion from repetitive movements, initial encounter; Y93.89 Activity, other specified; Y92.9 Unspecified place or not applicable; I10 Essential (primary) hypertension; Z88.8 Allergy status to other drugs, medicaments and biological substances; Z82.49 Family history of ischemic heart disease and other diseases of the circulatory system; Z82.3 Family history of stroke; Z83.79 Family history of other diseases of the digestive system; Z72.0 Tobacco use
CPT/HCPCS: 99213; A9270-GY; G0463

== ENCOUNTER 2018-02-16 05:53 | Emergency (ER) | payer OTHER ==
--- OUTSIDE RECORDS SUMMARY | 2018-02-16 06:13 | XMS REPORT ---
:1970 External Reference #:[id number] Author Organization [facility] Address [address] [place] [address] Phone [phone] Care Team Providers Name Role Phone Agus Zamorano FNP Primary Care Physician Unavailable Payers Type Date Identification Numbers Payment Provider Subscriber Commercial Effective: Policy Number: Olayinka Chang 2016 [id number] [employer] Group Number: preet # [id number] Group Name: [place] [address] PayID: [id number] Problems Date Description Provider Status Onset: 01/18/2018 Pruritus of skin Gabi Jackson M.D. Active Onset: 01/18/2018 Contact dermatitis Gabi Jackson M.D. Active Onset: 07/12/2017 Urticaria Gabi Jackson M.D. 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 daily every day Allergies, Adverse Reactions, Alerts Date Description Reaction Status Severity Comments 09/28/2016 NKDA active Medications Medication Date Status Form Strength Qnty SIG Indications Ordering Provider Triamcinolone 01/18 Active Cream 0.1% 80gm aaa twice a L30.9 [facility] day (do not Pieretti, apply to M.D. face) Hydroxyzine HCL 01/18 Active Tablets 25mg 60tab 1-2 tabs by L30.9 [facility] M s mouth every Pieretti, night at M.D. bedtime as needed Prednisone 01/18 Active Tablets 5mg 36tab 8 tabs by L30.9 [facility] M s mouth Pieretti, everyday x M.D. 3 days, then 4 tabs by mouth everyday x 3 days, then stop Hydrochlorothiazid 00 Active Tablets Unsure one tab Unknown e daily Amlodopine Active 10mg one tab daily Epinephrine Active Solution 0.3mg/0.3 Inject Auto-Inje ML Intramuscul ct juan Two Times A Day Vital Signs Date Vital Result Comment 01/18/2018 Height 72 inches 6'0" patient stated Weight 229.00 lb Weight in kg's 103.874 Respiratory Rate 18 /min Heart Rate 79 /min O2 % BldC Oximetry 98 % BP Systolic 135 mmHg BP Diastolic 96 mmHg BMI (Body Mass Index) 31.1 kg/m2 08/16/2017 Height 72 inches 6'0" patient stated [...] High risk: >3.00 3 Test Performed by: [address] [id number] 4 Test Performed by: [address] [address] 5 REFERENCE VALUE >67 (Normal) 41-67 (Equivocal) <41 (Abnormal) Test Performed by: [address] [address] 6 Class 0 (Negative <0.10) Reflex testing to peanut components not performed due to undetectable total peanut IgE. Test Performed by: [address] [address] REFERENCE VALUE <=1.0 (Negative) Test Performed by: [address] [address] Procedures Description No Information Encounters Type Date Location Provider CPT E/M Dx Office Visit 08/16/2017 5:20p [facility] AJAY Moreno 60910 Z23 L50.9 F17.210 T78.3xxA Office Visit 07/12/2017 5:00p [facility] Gabi Jackson M.D. 31164 L50.9 Office Visit 03/31/2017 9:40a [facility] AJAY Moreno [address]161 Z23 T78.3xxA Office Visit 10/21/2016 4:20p [facility] Arlene PlacidoAJAY myers 23769 T78.3xxA F17.210 Z68.29 Office Visit 09/28/2016 9:00a [facility] Gabi Jackson M.D. 42931 T78.3xxA Z23 Z68.30 Plan of Care Future Appointment(s):01/27/2018 11:20 am - AJAY Moreno at [id number] - Gabi Jackson M.D.L30.9 Dermatitis, [id number] Pruritus, unspecifiedNew Medication:Triamcinolone Acetonide 0.1 %Hydroxyzine HCL 25 mgPrednisone 5 mgFollow up:within 1 week if no improvementRecommendations: Prednisone 40 mg/day x 3 days, then 20 mg/day x 3 days -risks/side effects of prednisone discussed in length; pt expressed understanding use Hydroxyzine 25 mg - 1-2 tabs at night - this will help withitching, but may be sedating. Do not drive/drink alcohol with this medication okay to use Triamcinolone 0.1% cream twice daily to affected areas call if rash worsens, or no improvement by Tuesday
[2018-02-16] MEDS ORDERED: Ketorolac INJ* 60 MG/2 ML VIAL IM ONE (06:32)
[2018-02-16] MEDS ORDERED: Ketorolac INJ* 60 MG/2 ML VIAL ONE (06:34)
--- NOTE | 2018-02-16 06:37 | ED ---
Neck Pain - HPI Summary HPI Summary: Patient presenting for evaluation of chronic neck pain. Patient states he has seen neurosurgery in the past, Dr. Green. Patient states he is a surgical candidate but currently does not wish to have surgery. Denies any injury or exacerbating factors patient denies numbness, tingling or weakness in arms. Pain is worse with movement. Pt. had MRI in August which showed degenerative disc disease, spinal stenosis, herniated disc. Patient takes oxycodone at home for pain which she states is not helping. Symptoms are mild in severity. Movement makes symptoms worse. Nothing makes symptoms better. - History of Current Complaint Chief Complaint: EDExtremityUpper Stated Complaint: SHOULDER PAIN Time Seen by Provider: 02/16/18 06:09 Hx Obtained From: Patient Pain Intensity: 10 - Allergies/Home Medications Allergies/Adverse Reactions: Allergies Allergy/AdvReac Type Severity Reaction Status Date / Time lisinopril Allergy Rash Verified 02/17/18 11:20 PMH/Surg Hx/FS Hx/Imm Hx Previously Healthy: Yes Endocrine/Hematology History: Denies: Hx Diabetes, Hx Thyroid Disease Cardiovascular History: Reports: Hx Hypertension - HCTZ Denies: Hx Myocardial Infarction, Hx Pacemaker/ICD Respiratory History: Denies: Hx Asthma, Hx Chronic Obstructive Pulmonary Disease (COPD) GI History: Denies: Hx Ulcer History: Denies: Hx Renal Disease Musculoskeletal History: Reports: Other Musculoskeletal History - cervical DD w / Lt side radiculopathy Denies: Hx Scoliosis Sensory History: Denies: Hx Contacts or Glasses, Hx Hearing Aid Opthamlomology History: Denies: Hx Contacts or Glasses Neurological History: Denies: Hx Headaches Psychiatric History: Denies: Hx Panic Disorder - Surgical History Surgery Procedure, Year, and Place: ARTHROSCOPY RIGHT KNEE 06/16/15 Hx Anesthesia Reactions: No Infectious Disease History: Yes Infectious Disease History: Denies: Hx Clostridium Difficile, Hx Hepatitis, Hx Human Immunodeficiency Virus (HIV), 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- has been cleared, Hx Shingles, Hx Tuberculosis, Hx Known/Suspected VRE, Hx Known/Suspected VRSA, History Other Infectious Disease, Traveled Outside the [place] in Last 30 Days - Family History Known Family History: Positive: Cardiac Disease - [place] (grandmother), Hypertension , Other - CVA (mother), liver failure from EtOH (father) - Social History Occupation: Employed Full-time Lives: With Family Alcohol Use: Occasionally Alcohol Amount: HX OF ALCOHOL ABUSE Hx Substance Use: No Substance Use Type: Reports: None Hx Tobacco Use: Yes Smoking Status (MU): Light Every Day Tobacco Smoker Type: Cigarettes Amount Used/How Often: 5 cigarettes/day Have You Smoked in the Last Year: Yes Review of Systems Positive: Other - neck pain Negative: Weakness, Paresthesia, Numbness All Other Systems Reviewed And Are Negative: Yes Physical Exam Triage Information Reviewed: Yes Vital Signs On Initial Exam: Initial Vitals Temp Pulse Resp BP Pulse Ox 98.3 F 73 16 150/100 97 02/16/18 06:03 02/16/18 06:03 02/16/18 06:03 02/16/18 06:03 02/16/18 06:03 Vital Signs Reviewed: Yes Appearance: Positive: Well-Appearing - Pt. sitting up in bed looking at his cellphone in NAD. Skin: Positive: Warm, Dry Head/Face: Positive: Normal Head/Face Inspection Eyes: Positive: Normal, EOMI Neck: Positive: Supple, Other: - diffuse tenderness on palpatoin and with rotation.. Negative: Nuchal Rigidity Musculoskeletal: Positive: Normal, Strength/ROM Intact, Other - 5 out of 5 strength in bilateral upper extremities. Good palpable radial pulses. Neurological: Positive: Normal, CN Intact II-III Psychiatric: Positive: Affect/Mood Appropriate Diagnostics - Vital Signs Vital Signs Temp Pulse Resp BP Pulse Ox 02/16/18 06:03 98.3 F 73 16 150/100 97 - Laboratory Lab Statement: Any lab studies that have been ordered have been reviewed, and results considered in the medical decision making process. Neck Course/Dx - Course Course Of Treatment: Presenting for his x-ray show chronic neck pain. His exam is unremarkable. Patient was given a dose of Toradol here for pain. Strongly recommend he call his neurosurgeon today for a close follow-up appointment. Patient does note that he has an appointment with his family practitioner today. Prescriptions for steroid pack and Flexeril given. To return to the ER symptoms change or worsen. - Diagnoses Differential Dx/HQI/PQRI: Positive: Arthritis, Sprain, Strain Provider Diagnoses: Chronic neck pain Discharge - Sign-Out/Discharge Documenting (check all that apply): Patient Departure - Discharge Plan Condition: Good Disposition: HOME Prescriptions: Cyclobenzaprine TAB* [Flexeril 10 MG TAB*] 10 mg PO TID PRN #12 tab PRN Reason: Pain predniSONE TAB* [Deltasone 20 MG TAB*] 40 mg PO DAILY #10 tab Patient Education Materials: Cervical Radiculopathy (ED) Forms: *Work Release Referrals: Darby Peters MD [Primary Care Provider] - eMlba Rivera MD [Medical Doctor] - Additional Instructions: Schedule a follow up appointment with PCP and neurosurgery Take medication as directed Can continue oxycodone as directed Take your blood pressure medication when you return home Apply warm compresses Return to ER if symptoms change or worsen - Billing Disposition and Condition Condition: GOOD Disposition: Home
[2018-02-16 07:12] VITALS: BP 0/0
== END 2018-02-16 06:57 | disposition home or self-care (01) ==
LOC: ED 05:53
DX: M54.2 Cervicalgia (principal); G89.29 Other chronic pain; M50.30 Other cervical disc degeneration, unspecified cervical region; M54.10 Radiculopathy, site unspecified
CPT/HCPCS: 96372; 99282; J1885

== ENCOUNTER 2018-02-17 10:21 | Emergency (ER) | payer OTHER ==
[2018-02-17 11:21] VITALS: BP 155/104
--- NOTE | 2018-02-17 12:35 | ED ---
Neck Pain - HPI Summary HPI Summary: Patient is a 47 y/o M w/ c/o left neck pain and left shoulder pain onsetting two days ago. He states that at this time he had banged his head against his car while getting into it. He reports neck pain, shoulder pain and CANCINO at the time. CANCINO is reported to have resolved, left shoulder and neck pain are still present. He also reports intermittent left arm numbness. PMHx of degenerative disc disease, arthritis, chronic neck pain. He states that he was here yesterday and was discharged to home. Patient wants further workup, and is agreeable with CT brain, CT cervical spine, and left shoulder x-ray. On triage, pain is rated 10/10, nothing is noted to aggravate/alleviate Sx. Home medications and allergies are reviewed. - History of Current Complaint Chief Complaint: EDNeckComplaint Stated Complaint: NECK AND SHOULDER PAIN Time Seen by Provider: 02/17/18 11:57 Hx Obtained From: Patient Onset/Duration Of Injury/Symptoms: Days - onset two days ago Mechanism Of Injury: Blunt Trauma - hitting head against car Timing: Constant, Lasting Days Onset/Duration: Sudden Onset, Started days ago - onset two days ago, Still Present - left neck and left shoulder pain, Resolved - CANCINO Severity Currently: Severe - 10/10 Pain Intensity: 10 Pain Scale Used: 0-10 Numeric - 10/10 Aggravating Factors: Nothing Alleviating Factors: Nothing - Allergies/Home Medications Allergies/Adverse Reactions: Allergies Allergy/AdvReac Type Severity Reaction Status Date / Time lisinopril Allergy Rash Verified 02/17/18 11:20 PMH/Surg Hx/FS Hx/Imm Hx Endocrine/Hematology History: Denies: Hx Diabetes, Hx Thyroid Disease Cardiovascular History: Reports: Hx Hypertension - HCTZ Denies: Hx Myocardial Infarction, Hx Pacemaker/ICD Respiratory History: Denies: Hx Asthma, Hx Chronic Obstructive Pulmonary Disease (COPD) GI History: Denies: Hx Ulcer History: Denies: Hx Renal Disease Musculoskeletal History: Reports: Other Musculoskeletal History - cervical DD w / Lt side radiculopathy Denies: Hx Scoliosis Sensory History: Denies: Hx Contacts or Glasses, Hx Hearing Aid Opthamlomology History: Denies: Hx Contacts or Glasses Neurological History: Denies: Hx Headaches Psychiatric History: Denies: Hx Panic Disorder - Surgical History Surgery Procedure, Year, and Place: ARTHROSCOPY RIGHT KNEE 06/16/15 Hx Anesthesia Reactions: No Infectious Disease History: No Infectious Disease History: Denies: Hx Clostridium Difficile, Hx Hepatitis, Hx Human Immunodeficiency Virus (HIV), 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- has been cleared, Hx Shingles, Hx Tuberculosis, Hx Known/Suspected VRE, Hx Known/Suspected VRSA, History Other Infectious Disease, Traveled Outside the [place] in Last 30 Days - Family History Known Family History: Positive: Cardiac Disease - [place] (grandmother), Hypertension , Other - CVA (mother), liver failure from EtOH (father) - Social History Alcohol Use: Occasionally Alcohol Amount: HX OF ALCOHOL ABUSE Hx Substance Use: No Substance Use Type: Reports: None Hx Tobacco Use: Yes Smoking Status (MU): Light Every Day Tobacco Smoker Type: Cigarettes Amount Used/How Often: 5 cigarettes/day Have You Smoked in the Last Year: Yes Review of Systems Positive: Other - left shoulder pain, left neck pain Positive: Headache - since resolved , Numbness - left arm All Other Systems Reviewed And Are Negative: Yes Physical Exam - Summary Physical Exam Summary: Appearance: Well appearing, no pain distress Skin: warm, dry, reflects adequate perfusion Head/face: normal Eyes: EOMI, GERONIMO ENT: normal Neck: supple, non-tender Respiratory: CTA, breath sounds present Cardiovascular: RRR, pulses symmetrical Abdomen: non-tender, soft Bowel: present Musculoskeletal: strength/ROM intact; tenderness at the lateral aspect of the neck and the left shoulder Neuro: normal, sensory motor intact, A&Ox3 Triage Information Reviewed: Yes Vital Signs On Initial Exam: Initial Vitals Temp Pulse Resp BP Pulse Ox 98.2 F 88 16 155/104 99 02/17/18 11:17 02/17/18 11:17 02/17/18 11:17 02/17/18 11:17 02/17/18 11:17 Vital Signs Reviewed: Yes Diagnostics - Vital Signs Vital Signs Temp Pulse Resp BP Pulse Ox 02/17/18 11:17 98.2 F 88 16 155/104 99 - Laboratory Lab Statement: Any lab studies that have been ordered have been reviewed, and results considered in the medical decision making process. - Radiology left shoulder x-ray Radiology Interpretation Completed By: Radiologist Summary of Radiographic Findings: Left shoulder x-ray showed no evidence of fracture. This report was reviewed by ED physician. - CT brain ct CT Interpretation Completed By: Radiologist Summary of CT Findings: CT BRAIN IMPRESSION. 1. NO ACUTE INTRACRANIAL PATHOLOGY. 2. 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 THIS REPORT WAS REVIEWED BY ED PHYSICIAN. cervical spine ct CT Interpretation Completed By: Radiologist Summary of CT Findings: STRAIGHTENING OF THE CERVICAL LORDOSIS. MILD DEGENERATIVE DISC DISEASE, MOST PRONOUNCED AT C5-C6 AND C6-C7.. NO ACUTE OSSEOUS INJURY TO THE CERVICAL SPINE. THIS REPORT WAS REVIEWED BY ED PHYSICIAN. Re-Evaluation - Re-Evaluation First Eval Re-Evaluation Time: 13:45 Comment: Discussed results of imaging as well as follow up plan. Patient will follow up with PCP and DR. HOLLIS in three days. Patient is agreeable with this plan. Neck Course/Dx - Course Course Of Treatment: Patient is a 47 y/o M w/ c/o left neck pain and left shoulder pain onsetting two days ago. He states that at this time he had banged his head against his car while getting into it. He reports neck pain, shoulder pain and CANCINO at the time. CANCINO is reported to have resolved, left shoulder and neck pain are still present. PMHx of degenerative disc disease, arthritis, chronic neck pain. He states that he was here yesterday and was discharged to home. Patient wants further workup, and is agreeable with CT brain, CT cervical spine, and left shoulder x-ray. Physical exam shows tenderness at lateral aspect of the neck and left shoulder. Left shoulder x-ray showed no evidence of fracture. CT cervical spine IMPRESSION: STRAIGHTENING OF THE CERVICAL LORDOSIS. MILD DEGENERATIVE DISC DISEASE, MOST PRONOUNCED AT C5-C6 AND C6-C7.. NO ACUTE OSSEOUS INJURY TO THE CERVICAL SPINE. CT BRAIN IMPRESSION. 1. NO ACUTE INTRACRANIAL PATHOLOGY. 2. 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 Discussed results of imaging as well as follow up plan. Patient will follow up with PCP and DR. HOLLIS in three days. Patient is agreeable with this plan. Dx of left shoulder pain, neck pain, and head injury. - Diagnoses Differential Dx/HQI/PQRI: Positive: Arthritis, Intracranial Bleed, Sprain Provider Diagnoses: Left shoulder pain, Neck pain, Head injury Discharge - Sign-Out/Discharge Documenting (check all that apply): Patient Departure - discharge - Discharge Plan Condition: Stable Disposition: HOME Prescriptions: Diclofenac Sodium EC TAB* [Voltaren EC TAB*] 50 mg PO TID PRN #15 tab.ec MDD 3 PRN Reason: Pain Patient Education Materials: Head Injury (ED), Shoulder Pain (ED), Neck Pain ( ED) Forms: *Work Release Referrals: Darby Peters MD [Primary Care Provider] - 3 Days Melba Rivera MD [Medical Doctor] - 3 Days Additional Instructions: RETURN TO ED FOR ANY NEW OR WORSENING SYMPTOMS. FOLLOW UP WITH PRIMARY CARE PHYSICIAN AND DR. HOLLIS IN THREE DAYS. - Billing Disposition and Condition Condition: STABLE Disposition: Home - Attestation Statements Document Initiated by Scribe: Yes Documenting Scribe: Donte Atkinson Provider For Whom Brendan is Documenting (Include Credential): Sharif Moreno MD Scribe Attestation: Donte Ennis , scribed for Sharif Moreno MD on 02/17/18 at 1444. Scribe Documentation Reviewed: Yes Provider Attestation: The documentation as recorded by the Donte keane accurately reflects the service I personally performed and the decisions made by , Sharif Moreno MD
--- NOTE | 2018-02-17 12:46 | RAD ---
HISTORY: head injury COMPARISONS: None TECHNIQUE: Multiple contiguous axial CT scans were obtained of the head without intravenous contrast. FINDINGS: HEMORRHAGE/INFARCT: There is no hemorrhage or acute infarct. MASSES/SHIFT: There is no mass or shift. EXTRA-AXIAL SPACES: There are no extra-axial fluid collections. SULCI AND VENTRICLES: The sulci and ventricles are normal in size and position for the patient's stated age. CEREBRUM: There are no focal parenchymal abnormalities. BRAINSTEM: There are no focal parenchymal abnormalities. CEREBELLUM: There are no focal parenchymal abnormalities. VESSELS: The vessels are grossly normal. PARANASAL SINUSES: There is mucosal thickening of the right maxillary sinus with osteitis of the surrounding bone. ORBITS: The orbits are unremarkable. BONES AND SOFT TISSUE: No bone or soft tissue abnormalities are noted. OTHER: None IMPRESSION: 1. NO ACUTE INTRACRANIAL PATHOLOGY. 2. 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
--- NOTE | 2018-02-17 12:47 | RAD ---
HISTORY: head injury/neck sprain COMPARISONS: None TECHNIQUE: Multiple contiguous axial CT scans were obtained of the cervical spine without intravenous contrast, with coronal and sagittal multiplanar reformations. FINDINGS: BRAIN: The visualized brain is unremarkable CENTRAL CANAL: Evaluation of the central canal is limited on CT technique; however, there is no obvious canalicular mass or epidural hemorrhage. ALIGNMENT: There is straightening with reversal of the normal cervical lordosis. VERTEBRAL BODIES: There is multilevel anterolateral marginal osteophyte formation most pronounced at C5-C6 and C6-C7. There is no displaced fracture. JOINTS: There is no subluxation or dislocation. MUSCULATURE: Unremarkable INTERVERTEBRAL DISCS: There is mild diffuse loss of intervertebral disc height. AXIAL IMAGES: C2-C3: There is no osseous neural foraminal narrowing or central canal stenosis. C3-C4: There is no osseous neural foraminal narrowing or central canal stenosis. C4-C5: There is no osseous neural foraminal narrowing or central canal stenosis. C5-C6: There is no osseous neural foraminal narrowing or central canal stenosis. C6-C7: There is no osseous neural foraminal narrowing or central canal stenosis. C7-T1: There is no osseous neural foraminal narrowing or central canal stenosis. SOFT TISSUES: The visualized soft tissues of the neck are unremarkable. The prevertebral fat stripe is preserved. OTHER: None. IMPRESSION: STRAIGHTENING OF THE CERVICAL LORDOSIS. MILD DEGENERATIVE DISC DISEASE, MOST PRONOUNCED AT C5-C6 AND C6-C7.. NO ACUTE OSSEOUS INJURY TO THE CERVICAL SPINE.
--- NOTE | 2018-02-17 13:35 | RAD ---
INDICATION: Left shoulder pain. TECHNIQUE: 4 views of the left shoulder were obtained. FINDINGS: The bones are in normal alignment. No fracture is seen. Joint spaces appear maintained. IMPRESSION: NO EVIDENCE OF FRACTURE.
== END 2018-02-17 14:22 | disposition home or self-care (01) ==
LOC: ED 10:21
DX: M25.512 Pain in left shoulder (principal); M50.323 Other cervical disc degeneration at C6-C7 level; S09.90XA Unspecified injury of head, initial encounter; W22.8XXA Striking against or struck by other objects, initial encounter; Y92.810 Car as the place of occurrence of the external cause
CPT/HCPCS: 70450; 72125; 99283

== ENCOUNTER 2018-03-07 09:37 | Emergency (ER) | payer OTHER ==
--- NOTE | 2018-03-07 09:45 | UC ---
Back Pain HPI - HPI Summary HPI Summary: 47 yo male presents with left sided "sciatica". He tells me that he has a long standing history of low back pain and herniated disks. He has been seen by Neurosurgery and was advised to have back surgery - per pt. He has been putting this off, however, due to fear of surgery, but his back seems to be getting worse and is now ready to schedule. Today he tells me that his back pain is flaring up because yesterday he helped someone out of the mud. Does have some numbness and weakness in left leg - chronic. He has been taking his narcotic pain medication with mild relief. He has flexeril which helps, but he does not like the way it makes it feel (drowsy). He is asking for a work note. Denies loss of bowel/bladder control or saddle anesthesia. - History of Current Complaint Stated Complaint: NERVE PAIN Time Seen by Provider: 03/07/18 09:44 Hx Obtained From: Patient Timing: Constant Severity Initially: Severe Severity Currently: Severe Pain Intensity: 10 Pain Scale Used: 0-10 Numeric - Allergies/Home Medications Allergies/Adverse Reactions: Allergies Allergy/AdvReac Type Severity Reaction Status Date / Time lisinopril Allergy Rash Verified 03/07/18 09:43 Home Medications: Home Medications Lidocaine 5 gm TP DAILY PRN 03/07/18 [History Confirmed 03/07/18] amLODIPine TAB* [Norvasc 5 mg TAB*] 5 mg PO DAILY 03/07/18 [History Confirmed ] PMH/Surg Hx/FS Hx/Imm Hx - Additional Past Medical History Additional PMH: Chronic low back pain HTN - Surgical History Surgical History: Yes Surgery Procedure, Year, and Place: ARTHROSCOPY RIGHT KNEE 06/16/15 - Family History Known Family History: Positive: Cardiac Disease - [place] (grandmother), Hypertension , Other - CVA (mother), liver failure from EtOH (father) - Social History Occupation: Employed Full-time Lives: With Family Alcohol Use: None Alcohol Amount: HX OF ALCOHOL ABUSE Substance Use Type: None Smoking Status (MU): Current Every Day Smoker Type: Cigarettes Amount Used/How Often: 3-4 cigarettes/day Have You Smoked in the Last Year: Yes Household Exposure Type: Cigarettes - Immunization History Most Recent Influenza Vaccination: denies Review of Systems All Other Systems Reviewed And Are Negative: Yes Constitutional: Positive: Negative Skin: Positive: Negative Respiratory: Positive: Negative Cardiovascular: Positive: Negative Gastrointestinal: Positive: Negative Genitourinary: Positive: Negative Neurovascular: Positive: Negative Musculoskeletal: Positive: Other: - Low back pain Neurological: Positive: Weakness, Numbness Psychological: Positive: Negative Physical Exam - Summary Physical Exam Summary: GENERAL: NAD. WDWN. No pain distress. SKIN: No rashes, sores, lesions, or open wounds. NECK: Supple. FROM. Nontender. No lymphadenopathy. CHEST: CTAB. No r/r/w. No accessory muscle use. Breathing comfortably and in no distress. CV: RRR. Without m/r/g. Pulses intact. Cap refill <2seconds MSK: Mild TTP over left paraspinal muscles with palpable spasm. Pain with flexion and extension of spine in left low back and posterior left leg. Positive SLR b/l for low back pain...left with radiation posterior leg. Strength 3/5 L vs 4/5 R LEs NEURO: Alert. Sensations intact B/L LEs L3-S1. PSYCH: Age appropriate behavior. Triage Information Reviewed: Yes Vital Signs: Vital Signs: Temp Pulse Resp BP Pulse Ox 97.6 F 76 20 150/107 99 03/07/18 09:46 03/07/18 09:46 03/07/18 09:46 03/07/18 09:46 03/07/18 09:46 Vital Signs Reviewed: Yes Back Pain Course/Dx - Course Course Of Treatment: Suspect sciatica and muscle spasm. Work note provided. Will have him stop flexeril (he is not taking this anyway due to side effects) and will try him with robaxin. Advised to f/u with neurosurgery as soon as possible. - Differential Dx/Diagnosis Provider Diagnoses: Sciatica Discharge - Sign-Out/Discharge Documenting (check all that apply): Patient Departure All imaging exams completed and their final reports reviewed: No Studies - Discharge Plan Condition: Stable Disposition: HOME Prescriptions: Methocarbamol TAB* [Robaxin 500 MG TAB*] 1,000 mg PO QID PRN #[id number] tab PRN Reason: Pain Patient Education Materials: Sciatica (ED) Forms: *Work Release Referrals: Darby Peters MD [Primary Care Provider] - Additional Instructions: If you develop a fever, shortness of breath, chest pain, new or worsening symptoms - please call your PCP or go to the ED. Your blood pressure was high at todays visit. Please see your primary provider within 4 weeks for recheck and re-evaluation. 1) Do not take the Robaxin with the Flexeril as this medications may interact. 2) Please follow up with Neurosurgery as soon as possible - Billing Disposition and Condition Condition: STABLE Disposition: Home
[2018-03-07 09:53] VITALS: BP 150/107
== END 2018-03-07 10:07 | disposition home or self-care (01) ==
LOC: UCEAST 09:37
DX: M54.42 Lumbago with sciatica, left side (principal); I10 Essential (primary) hypertension; F17.210 Nicotine dependence, cigarettes, uncomplicated
CPT/HCPCS: 99212; G0463

== ENCOUNTER 2018-09-10 11:48 | Emergency (ER) | payer OTHER ==
--- OUTSIDE RECORDS SUMMARY | 2018-09-10 11:54 | XMS REPORT | Continuity of Care Document ---
:1970 External Reference #:[id number] Author Name Ashwini Henson Care Team Providers Name Role Phone Helen Barton MD Primary Care Physician Unavailable Payers Date Identification Numbers Payment Provider Subscriber Policy Number: [id number] Pawan Chang Group Number: [id number] [address] PayID: [id number] [place] [address] Advance Directives Description No Information Available Problems Active Problems Provider Date Essential hypertension Agus Zamorano NP Onset: 12/27/2016 Alcohol abuse Agus Zamorano NP Onset: 12/27/2016 Neck pain Melab Rivera MD Onset: 03/15/2017 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 Melba Rivera MD Onset: 03/15/2017 Derangement of meniscus Giuseppe Hernández MD Onset: 04/06/2017 Knee joint effusion Giuseppe Hernández MD Onset: 04/06/2017 Current tear of lateral cartilage Giuseppe Hernández MD Onset: 05/30/2017 AND/OR meniscus of knee Obstructive sleep apnea syndrome Lidia Bernstein DNP, RN, Onset: 06/15/2017 [employer] 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 Work Status Currently Working Hand Dominance Right-handed Tobacco Use Start: Unknown Light tobacco smoker (10 or fewer cigarettes/day) Smoking Status Reviewed: 09/04/18 Light tobacco smoker (10 or fewer cigarettes/day) ETOH Use Currently consumes alcohol ETOH Use Daily alcohol 1 pint liquor, 6 beers Tobacco Use Start: Unknown Patient is a current Smokes 1-5 cigs per smoker, smokes every day; started age 13 day Recreational Drug Use Regularly uses daily Marijuana Exercise Type/Frequency Does not exercise Limited until after knee surgery scheduled 06/16/17 Allergies, Adverse Reactions, Alerts Active Allergies Reaction Severity Comments Date Lisinopril angioedema 12/22/2016 Medications Active Medications SIG Qnty Indications Ordering Date Provider Hydrochlorothiazide take one 30tabs I10 Helen Barton, 09/04/2018 25mg Tablets tablet by MD mouth every day Potassium Chloride Mahi ER take one 42tabs Helen Barton, 08/17/2018 20Meq tablet twice a MD Tablets ER day for 5 days; then one tablet daily Atenolol 1 by mouth 30tabs Agus Zamorano NP 08/07/2018 50mg Tablets twice a day Ra Nicotine Gum chew and tuck 100units F17.210 Agus Zamorano NP 08/03/2018 2mg Gum in gum one piece every two hours as needed. Tizanidine HCL take one 60tabs M47.27 Agus Zamorano NP 08/03/2018 4mg Tablets tablet by mouth three times daily as needed Blood Pressure Monitor check bp twice 1units I10 Agus Zamorano NP 08/03/2018 Auto Infl[place] [facility] [place]utic[place] Propionate 2 sprays each 16gm J01.90 Sophia Jordan, 06/14/2018 50mcg/Act nostril twice MD Suspension a day for 7 days, then once at bedtime Oxycodone-Acetaminophen 1-2 tabs by 56tabs M51.16 Agus Zamorano NP 2017 5-325mg mouth every 12 Tablets hours as needed for pain Knee Brace/Hinged Bars XL wear on left M25.561 Agus Zamorano NP 04/11/2017 [facility] [place] Amlodipine Besylate take one 30tabs Sophia Jordan, 10mg Tablets tablet by MD mouth every day History Medications Chlorthalidone 08/21/18 reports 30tabs I10 Agus Zamorano NP 08/03/2018 - 50mg Tablets not taking 1 by 08/22/2018 mouth every day Tamiflu 1 by mouth 10caps J06.9 Sarah Magallanesn, 06/02/2018 - 75mg Capsules twice daily for N.P. 06/07/2018 5 days Voltaren Three Times 15tabs Unknown 02/17/2018 - 25mg Tablets DR Daily 04/12/2018 Flexeril Three Times 12tabs Unknown 02/16/2018 - Repack Daily 06/12/2018 10mg Tablets Deltasone Every Day 10tabs Unknown 02/16/2018 - 20mg Tablets 06/12/2018 Gabapentin Take One 60caps R20.8 Agus Zamorano NP 08/18/2017 - 300mg Capsules Capsule By 03/14/2018 Mouth In The Morning And AT Bedtime M50.122 Gabapentin Take One Capsule 60caps R20.8 Agus Zamorano NP 08/18/2017 - 300mg By Mouth In The 08/03/2018 Capsules Morning And AT Bedtime M50.122 Baclofen take 1/2 tab 30tabs M50.122 Agus Zamorano NP 08/09/2017 - 10mg every 8 hours as 03/14/2018 Tablets needed for muscle spasm M51.16 Naproxen 1 tablet with food 30tabs M51.16 Agus Zamorano, 08/09/2017 - 500mg Tablets by mouth twice a day HEAD 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 Hydrocodone-Acetaminophe take 1-2 tablets 42tabs M23.306 Agus Zamorano, 04/11 - n every 8 hours for HEAD WORKER 05/20/2017 5-325mg Tablets pain. Meloxicam 1 -2 tablet by mouth 60tabs M25.561 Agus Zamorano, 03/09/2017 - 7.5mg Tablets once daily as needed HEAD WORKER 08/09/2017 Knee Sleeve/Open wear on right knee 1units M25.561 Agus Zamorano, 03/09/2017 - Patella/Medium/Neoprene as needed. HEAD WORKER 04/11/2017 Misc Gabapentin Take One Capsule By 60caps R20.8 Agus Zamorano, 02/03/2017 - 300mg Capsules Mouth In The Morning HEAD WORKER 08/09/2017 And AT Bedtime Gabapentin take 3 caps in the 60caps R20.8 Agus Zamorano, 01/14/2017 - 100mg Capsules morning and every HEAD WORKER 02/03/2017 night at bedtime Lisinopril 1 by mouth every day 30tabs Agus Zamorano, 01/06/2017 - 10mg Tablets HEAD WORKER 01/06/2017 Voltaren apply as needed for Unknown - Cream pain 08/16/2018 Amoxicillin/Clavulanate 1 po bid Unknown - Potassium 03/14/2018 875-125mg Tablets Clindamycin HCL Unknown - 300mg 05/11/2017 Capsules Vitamin B-1 daily Unknown - 100mg Tablets 03/09/2017 Folic Acid 1 daily Unknown - 1mg Tablets 03/09/2017 Acamprosate Calcium 2 pills three times Unknown - 333mg daily 03/09/[address] Epinephrine Inject Unknown - 0.3mg/0.3ML Intramuscularly Two 03/14/2018 Solution Auto-Inject Times A Day Cyclobenzaprine HCL Unknown - 10mg 12/22/2016 Tablets Nifedipine ER Osmotic Take One Tablet By Unknown - Release Mouth Every Day 01/06/2017 30mg Tablets ER 24HR Hydrochlorothiazide take one tablet by 30tabs I10 Sophia Jordan, - 25mg mouth every day 08/03/2018 Tablets Medications Administered in Office Medication SIG Qnty Indications Ordering Provider Date Triamcinolone (Kenalog) Giuseppe Hernández MD 04/26/2017 Injection Immunizations Description No Information Available Vital Signs Date Vital Result Comment 09/04/2018 2:10pm Height 72 inches 6'0" Weight 243.00 lb Heart Rate 70 /min BP Systolic Sitting 147 mmHg BP Diastolic Sitting 101 mmHg Body Temperature 97.5 F Pain Level 5 back and legs O2 % BldC Oximetry 96 % BMI (Body Mass Index) 33.0 kg/m2 08/21/2018 3:52pm Height 72 inches 6'0" Weight 217.00 lb Heart Rate 77 /min BP Systolic Sitting 126 mmHg BP Diastolic Sitting 85 mmHg Body Temperature 98.2 F O2 % BldC Oximetry 97 % BMI (Body Mass Index) 29.4 kg/m2 08/17/2018 3:34pm Height 72 inches 6'0" Weight 215.50 lb Heart Rate 79 /min BP Systolic 133 mmHg BP Diastolic 77 mmHg Body Temperature 97.7 F O2 % BldC Oximetry 96 % BMI (Body Mass Index) 29.2 kg/m2 08/03/2018 9:25am Height 72 inches 6'0" Weight 228.38 lb Heart Rate 79 /min BP Systolic 165 mmHg BP Diastolic 110 mmHg BP Systolic Recheck 164 mmHg BP Diastolic Recheck 104 mmHg Body Temperature 97.6 F O2 % BldC Oximetry 98 % BMI (Body Mass Index) 31.0 kg/m2 06/14/2018 4:16pm Height 72 inches 6'0" Weight 230.00 lb Heart Rate 78 /min BP Systolic Sitting 160 mmHg large adult cuff left arm BP Diastolic Sitting 120 mmHg large adult cuff left arm Body Temperature 97.3 F O2 % BldC Oximetry 97 % at rest on room air BMI (Body Mass Index) 31.2 kg/m2 06/02/2018 3:52pm Height 72 inches 6'0" Weight 232.00 lb Heart Rate 84 /min BP Systolic 173 mmHg BP Diastolic 114 mmHg Body Temperature 97.9 F O2 % BldC Oximetry 97 % BMI (Body Mass Index) 31.5 kg/m2 05/01/2018 3:15pm Height 72 inches 6'0" Weight 235.00 lb BP Systolic Sitting 158 mmHg BP Diastolic Sitting 94 mmHg Pain Level 3 BMI (Body Mass Index) 31.9 kg/m2 04/13/2018 8:48am Height 72 inches 6'0" Weight 235.00 lb BP Systolic Sitting 178 mmHg BP Diastolic Sitting 128 mmHg Respiratory Rate 16 /min BMI (Body Mass Index) 31.9 kg/m2 03/14/2018 10:28am Height 72 inches 6'0" Weight 228.00 lb BP Systolic Sitting 130 mmHg BP Diastolic Sitting 80 mmHg Pain Level 8 BMI (Body Mass Index) 30.9 kg/m2 11/15/2017 3:04pm Height 72 inches 6'0" Weight 245.00 lb BP Systolic Sitting 122 mmHg BP Diastolic Sitting 78 mmHg Pain Level 8 BMI (Body Mass Index) 33.2 kg/m2 09/02/2017 1:39pm Height 72 inches 6'0" Weight 245.00 lb BP Systolic 142 mmHg BP Diastolic 90 mmHg Respiratory Rate 18 /min Body Temperature 97.5 F Pain Level 0 BMI (Body Mass Index) 33.2 kg/m2 08/18/2017 11:43am Weight 240.00 lb Heart Rate 92 /min BP Systolic 134 mmHg BP Diastolic 85 mmHg Body Temperature 97.2 F O2 % BldC Oximetry 97 % 08/09/2017 10:35am Weight 241.75 lb Heart Rate 87 /min BP Systolic 132 mmHg BP Diastolic 84 mmHg Body Temperature 97.2 F O2 % BldC Oximetry 85 % 07/06/2017 9:24am Height 72 inches 6'0" Weight 234.00 lb Heart Rate 86 /min BP Systolic Sitting 154 mmHg BP Diastolic Sitting 88 mmHg Pain Level 5 BMI (Body Mass Index) 31.7 kg/m2 07/01/2017 9:23am Height 72 inches 6'0" Heart Rate 88 /min BP Systolic 132 mmHg BP Diastolic 90 mmHg Respiratory Rate 16 /min Body Temperature 97.6 F Pain Level 3 06/15/2017 8:37am Height 72 inches 6'0" Weight 234.50 lb with shoes and keys Heart Rate 80 /min BP Systolic Sitting 160 mmHg Lue large cuff BP Diastolic Sitting 110 mmHg Lue large cuff Respiratory Rate 16 /min O2 % BldC Oximetry 98 % On Ra BMI (Body Mass Index) 31.8 kg/m2 05/30/2017 2:46pm Height 72 inches 6'0" Weight 236.00 lb Heart Rate 97 /min Respiratory Rate 16 /min Body Temperature 98.3 F Pain Level 10 BMI (Body Mass Index) 32.0 kg/m2 05/11/2017 2:23pm Height 72 inches 6'0" Weight 236.00 lb Heart Rate 83 /min BP Systolic Sitting 124 mmHg BP Diastolic Sitting 71 mmHg Pain Level 5 BMI (Body Mass Index) 32.0 kg/m2 04/27/2017 1:24pm Height 72 inches 6'0" Weight 236.00 lb Heart Rate 84 /min BP Systolic Sitting 130 mmHg BP Diastolic Sitting 80 mmHg Pain Level 6 BMI (Body Mass Index) 32.0 kg/m2 04/26/2017 8:55am Height 72 inches 6'0" Weight 236.00 lb BP Systolic 130 mmHg BP Diastolic 92 mmHg Respiratory Rate 18 /min Body Temperature 97.1 F Pain Level 5 BMI (Body Mass Index) 32.0 kg/m2 04/11/2017 4:21pm Height 72 inches 6'0" Weight 236.00 lb Heart Rate 97 /min BP Systolic Sitting 136 mmHg BP Diastolic Sitting 94 mmHg Body Temperature 98.2 F O2 % BldC Oximetry 97 % BMI (Body Mass Index) 32.0 kg/m2 04/06/2017 1:24pm Height 73 inches 6'1" Weight 242.50 lb Heart Rate 86 /min BP Systolic 122 mmHg BP Diastolic 84 mmHg Body Temperature 97.8 F Pain Level 10 BMI (Body Mass Index) 32.0 kg/m2 03/15/2017 10:15am Height 72 inches 6'0" Weight 241.00 lb Heart Rate 66 /min BP Systolic Sitting 112 mmHg BP Diastolic Sitting 78 mmHg Pain Level 7 BMI (Body Mass Index) 32.7 kg/m2 03/09/2017 4:40pm Weight 241.25 lb Heart Rate 87 /min BP Systolic Sitting 130 mmHg BP Diastolic Sitting 82 mmHg O2 % BldC Oximetry 95 % 02/15/2017 8:58am Height 72 inches 6'0" Weight 234.25 lb Heart Rate 82 /min BP Systolic Sitting 154 mmHg Rue large cuff BP Diastolic Sitting 100 mmHg Rue large cuff Respiratory Rate 16 /min O2 % BldC Oximetry 98 % On Ra BMI (Body Mass Index) 31.8 kg/m2 Neck Circumference in inches 18 02/14/2017 2:01pm Height 72 inches 6'0" Weight 237.00 lb Heart Rate 82 /min BP Systolic Sitting 130 mmHg BP Diastolic Sitting 90 mmHg Pain Level 5 BMI (Body Mass Index) 32.1 kg/m2 02/03/2017 3:38pm Weight 236.00 lb Heart Rate 80 /min BP Systolic Sitting 153 mmHg BP Diastolic Sitting 99 mmHg Body Temperature 97.2 F Pain Level 7 O2 % BldC Oximetry 98 % 01/14/2017 2:50pm Heart Rate 77 /min BP Systolic Sitting 120 mmHg BP Diastolic Sitting 88 mmHg O2 % BldC Oximetry 98 % 01/06/2017 9:26am Heart Rate 72 /min BP Systolic Sitting 140 mmHg BP Diastolic Sitting 98 mmHg BP Systolic Recheck 138 mmHg BP Diastolic Recheck 88 mmHg Pain Level 8 lower back O2 % BldC Oximetry 98 % 12/22/2016 11:13am Height 71.75 inches 5'11.75" Weight 227.00 lb Heart Rate 88 /min BP Systolic Sitting 138 mmHg BP Diastolic Sitting 96 mmHg BP Systolic Recheck 136 mmHg BP Diastolic Recheck 92 mmHg O2 % BldC Oximetry 97 % BMI (Body Mass Index) 31.0 kg/m2 Results Test Date Facility Test Result H/L Range Note Basic Metabolic 08/21/2018 [facility] Sodium 142 mmol/L N 135- [address] [place] [address] [phone] Potassium 3.1 mmol/L Low 3.5-5.0 Chloride 101 mmol/L N 101-111 Co2 Carbon Dioxide 30 mmol/L N 22-32 Anion Gap 11 mmol/L N 2-11 Glucose 99 mg/dL N 70-100 Blood Urea Nitrogen 19 mg/dL N 6-24 Creatinine 1.12 mg/dL N 0.67-1.17 BUN/Creatinine Ratio 17.0 N 8-20 Egfr Non- 70.6 >60 Egfr 85.4 >60 1 Laboratory test 08/21/2018 [facility] Calcium 10.3 mg/dL N 8.6 -10.[address] [place] [address] [phone] Laboratory test 08/17/2018 [facility] TSH (Thyroid 1.62 N 0.34 -5.[address] Stim Horm) mcIU/[place] [address] [phone] CBC Auto Diff 08/17/2018 [facility] White Blood 8.0 10^3/uL N 3.5-10.[address] [place] [address] [phone] Red Blood Count 4.63 10^6/uL N 4.18-5.48 Hemoglobin 14.6 g/dL N 14.0-18.0 Hematocrit 40 % N 36-46 Mean Corpuscular Volume 86 fL N 80-94 Mean Corpuscular Hemoglobin 32 pg High 27-31 Mean Corpuscular HGB Conc 37 g/dL High 31-36 Red Cell Distribution Width 13 % N 10.5-15 Platelet Count 222 10^3/uL N 150-450 Mean Platelet Volume 9.3 fL N 7.4-10.4 Abs Neutrophils 4.7 10^3/uL N 1.5-7.7 Abs Lymphocytes 2.4 10^3/uL N 1.0-4.8 Abs Monocytes 0.7 10^3/uL N 0-0.8 Abs Eosinophils 0.3 10^3/uL N 0-0.6 Abs Basophils 0 10^3/uL N 0-0.2 Abs Nucleated RBC 0 10^3/uL Granulocyte % 58.0 % Lymphocyte % 30.2 % Monocyte % 8.2 % Eosinophil % 3.2 % Basophil % 0.4 % Nucleated Red Blood Cells % 0.1 Comp Metabolic Panel 08/17/2018 [facility] Sodium 139 mmol/L N 135-[address] [place] [address] [phone] Chloride 95 mmol/L Low 101-111 Co2 Carbon Dioxide 32 mmol/L N 22-32 Glucose 100 mg/dL N 70-100 Blood Urea Nitrogen 26 mg/dL High 6-24 Creatinine 1.14 mg/dL N 0.67-1.17 BUN/Creatinine Ratio 22.8 High 8-20 Calcium 10.5 mg/dL High 8.6-10.3 Total Protein 7.9 g/dL N 6.4-8.9 Albumin 5.2 g/dL N 3.2-5.2 Globulin 2.7 g/dL N 2-4 Albumin/Globulin Ratio 1.9 N 1-3 Total Bilirubin 0.80 mg/dL N 0.2-1.0 Alkaline Phosphatase 37 U/L N 34-104 Alt 37 U/L N 7-52 Ast 32 U/L N 13-39 Egfr Non- 69.2 >60 Egfr 83.7 >60 2 Potassium 2.7 mmol/L Low 3.5-5.0 3 Anion Gap 12 mmol/L High 2-11 Laboratory test 06/02/2018 [employer] [facility] Influenza A/B Rapid negative finding Drug Abuse 20 Urine 09/26/2017 [facility] Urine Amphetamine Negative ng/mL [address] [place] [address] [phone] Urine Barbiturates Negative ng/mL 5 Urine Benzodiazepines Negative ng/mL 6 Urine Cocaine Negative ng/mL 7 Urine Phencyclidine Negative ng/mL Cutoff: 25 Urine Tetrahydrocannabinol Presumptive Posi <SEE NOTE> Abnormal Cutoff: 50 8 ng/mL Creatinine, Urine 237.2 mg/dL Specific [place] 1.017 pH 6.7 Oxidants Negative 9 Adulterants Comment Normal Codeine, Ur Not Detected ng/mL Cutoff: 25 10 Kaavoda-9-bneo-glucuronide, Ur Not Detected ng/mL 11 Morphine, Ur Not Detected ng/mL Cutoff: 25 12 Bsvjyczl-2-ponj-glucuronide, U Not Detected ng/mL 13 6-monoacetylmorphine, Ur Not Detected ng/mL Cutoff: 25 14 Hydrocodone, Ur Not Detected ng/mL Cutoff: 25 15 Norhydrocodone, Ur Not Detected ng/mL Cutoff: 25 16 Dihydrocodeine, Ur Not Detected ng/mL Cutoff: 25 17 Hydromorphone, Ur Not Detected ng/mL Cutoff: 25 18 Lbwcnxcyevigx2evylwsavdkqbzqr Not Detected ng/mL 19 Oxycodone, Ur Present ng/mL Abnormal Cutoff: 25 20 Noroxycodone, Ur Present ng/mL Abnormal Cutoff: 25 21 Oxymorphone, Ur Not Detected ng/mL Cutoff: 25 22 Nasqkfxbrxc-7-seda-glucuronide Present ng/mL Abnormal 23 Noroxymorphone, Ur Not Detected ng/mL Cutoff: 25 24 Fentanyl, Ur Not Detected ng/mL Cutoff: 2 25 Norfentanyl, Ur Not Detected ng/mL Cutoff: 2 26 Meperidine, Ur Not Detected ng/mL Cutoff: 25 27 Normeperidine, Ur Not Detected ng/mL Cutoff: 25 28 Naloxone, Ur Not Detected ng/mL Cutoff: 25 29 Ttueezor-4-gocl-glucuronide, U Not Detected ng/mL 30 Methadone, Ur Not Detected ng/mL Cutoff: 25 31 Eddp, Ur Not Detected ng/mL Cutoff: 25 32 Propoxyphene, Ur Not Detected ng/mL Cutoff: 25 33 Norpropoxyphene, Ur Not Detected ng/mL Cutoff: 25 34 Tramadol, Ur Not Detected ng/mL Cutoff: 25 35 O-desmethyltramadol, Ur Not Detected ng/mL Cutoff: 25 36 Tapentadol, Ur Not Detected ng/mL Cutoff: 25 37 N-desmethyltapentadol, Ur Not Detected ng/mL Cutoff: 50 38 Fedfmgcldc-xbzo-yyjvlsrkbiw, U Not Detected ng/mL 39 Buprenorphine, Ur Not Detected ng/mL Cutoff: 5 40 Norbuprenorphine, Ur Not Detected ng/mL Cutoff: 5 41 Norbuprenorphine glucuronide Not Detected ng/mL Cutoff: 20 42 Opioid Interpretation See Comment 43 THC Confirmation 09/26/2017 [facility] Urine Carboxy 121 ng/mL [address] [place] [address] [phone] Urine THC Interpretation Positive. 45 THC Confirmation 08/09/2017 [facility] Urine Carboxy 125 ng/mL 46, [address] [place] [address] [phone] Urine THC Interpretation Positive. 48 Drug Abuse 20 08/09/2017 [facility] Urine Amphetamine Negative ng/mL [address] [place] [address] [phone] Urine Barbiturates Negative ng/mL 50 Urine Benzodiazepines Negative ng/mL 51 Urine Cocaine Negative ng/mL 52 Urine Phencyclidine Negative ng/mL Cutoff: 25 Urine Tetrahydrocannabinol Presumptive Posi <SEE NOTE> Abnormal Cutoff: 50 53 ng/mL Creatinine, Urine 204.2 mg/dL Specific [place] 1.018 pH 5.6 Oxidants Negative 54 Adulterants Comment Normal Codeine, Ur Not Detected ng/mL Cutoff: 25 55 Hdndmmh-6-sxyj-glucuronide, Ur Not Detected ng/mL 56 Morphine, Ur Not Detected ng/mL Cutoff: 25 57 Lrozvbry-0-yivp-glucuronide, U Not Detected ng/mL 58 6-monoacetylmorphine, Ur Not Detected ng/mL Cutoff: 25 59 Hydrocodone, Ur Present ng/mL Abnormal Cutoff: 25 60 Norhydrocodone, Ur Not Detected ng/mL Cutoff: 25 61 Dihydrocodeine, Ur Not Detected ng/mL Cutoff: 25 62 Hydromorphone, Ur Not Detected ng/mL Cutoff: 25 63 Msumcoipstbqf7pniqypcnfudhiqp Not Detected ng/mL 64 Oxycodone, Ur Not Detected ng/mL Cutoff: 25 65 Noroxycodone, Ur Present ng/mL Abnormal Cutoff: 25 66 Oxymorphone, Ur Not Detected ng/mL Cutoff: 25 67 Mxnqflzfbbd-0-vspz-glucuronide Not Detected ng/mL 68 Noroxymorphone, Ur Not Detected ng/mL Cutoff: 25 69 Fentanyl, Ur Not Detected ng/mL Cutoff: 2 70 Norfentanyl, Ur Not Detected ng/mL Cutoff: 2 71 Meperidine, Ur Not Detected ng/mL Cutoff: 25 72 Normeperidine, Ur Not Detected ng/mL Cutoff: 25 73 Naloxone, Ur Not Detected ng/mL Cutoff: 25 74 Liabmawh-8-qdnk-glucuronide, U Not Detected ng/mL 75 Methadone, Ur Not Detected ng/mL Cutoff: 25 76 Eddp, Ur Not Detected ng/mL Cutoff: 25 77 Propoxyphene, Ur Not Detected ng/mL Cutoff: 25 78 Norpropoxyphene, Ur Not Detected ng/mL Cutoff: 25 79 Tramadol, Ur Present ng/mL Abnormal Cutoff: 25 80 O-desmethyltramadol, Ur Present ng/mL Abnormal Cutoff: 25 81 Tapentadol, Ur Not Detected ng/mL Cutoff: 25 82 N-desmethyltapentadol, Ur Not Detected ng/mL Cutoff: 50 83 Jqdercbukt-nrot-vfpfmupcdkq, U Not Detected ng/mL 84 Buprenorphine, Ur Not Detected ng/mL Cutoff: 5 85 Norbuprenorphine, Ur Not Detected ng/mL Cutoff: 5 86 Norbuprenorphine glucuronide Not Detected ng/mL Cutoff: 20 87 Opioid Interpretation See Comment 88 Laboratory test 02/03/2017 [facility] C Reactive 1.70 mg/L N < 5.[address] [place] [address] [phone] Erythrocyte Sed Rate 11 mm/Hr N 0-14 CBC Auto Diff 02/03/2017 [facility] White Blood 6.7 10^3/uL N 3.5-10.[address] [place] [address] [phone] Red Blood Count 4.35 10^6/uL N 4.0-5.4 Hemoglobin 13.4 g/dL Low 14.0-18.0 Hematocrit 38 % Low 42-52 Mean Corpuscular Volume 87 fL N 80-94 Mean Corpuscular Hemoglobin 31 pg N 27-31 Mean Corpuscular HGB Conc 36 g/dL N 31-36 Red Cell Distribution Width 13 % N 10.5-15 Platelet Count 190 10^3/uL N 150-450 Mean Platelet Volume 9 um3 N 7.4-10.4 Abs Neutrophils 3.1 10^3/uL N 1.5-7.7 Abs Lymphocytes 2.8 10^3/uL N 1.0-4.8 Abs Monocytes 0.4 10^3/uL N 0-0.8 Abs Eosinophils 0.4 10^3/uL N 0-0.6 Abs Basophils 0 10^3/uL N 0-0.2 Abs Nucleated RBC 0.01 10^3/uL N Granulocyte % 46.5 % N 38-83 Lymphocyte % 41.5 % N 25-47 Monocyte % 6.3 % N 1-9 Eosinophil % 5.3 % N 0-6 Basophil % 0.4 % N 0-2 Nucleated Red Blood Cells % 0.1 N Laboratory test 02/02/2017 [facility] Rheumatoid <15 IU/mL N < [address] [place] [address] [phone] Comp Metabolic 02/02/2017 [facility] Sodium 139 mmol/L N 133- [address] [place] [address] [phone] Potassium 3.7 mmol/L N 3.5-5.0 Chloride 104 mmol/L N 101-111 Co2 Carbon Dioxide 27 mmol/L N 22-32 Anion Gap 8 mmol/L N 2-11 Glucose 89 mg/dL N 70-100 Blood Urea Nitrogen 11 mg/dL N 6-24 Creatinine 1.07 mg/dL N 0.67-1.17 BUN/Creatinine Ratio 10.3 N 8-20 Calcium 9.6 mg/dL N 8.6-10.3 Total Protein 6.9 g/dL N 6.4-8.9 Albumin 4.7 g/dL N 3.2-5.2 Globulin 2.2 g/dL N 2-4 Albumin/Globulin Ratio 2.1 N 1-3 Total Bilirubin 0.50 mg/dL N 0.2-1.0 Alkaline Phosphatase 34 U/L N 34-104 Alt 32 U/L N 7-52 Ast 25 U/L N 13-39 Egfr Non- 75.1 N >60 Egfr 96.6 N >60 91 Connective Tissue 12/23/2016 [facility] Anti-Nuclear 0.2 U N 92, [address] [facility] [place] [address] [phone] Cyclic Citrullinated Peptide <15.6 U N 94 Interpretation See Comment N 95 Laboratory 12/23/2016 [facility] Rheumatoid Factor 16 IU/mL Abnormal <15 96 test finding [address] [place] [address] [phone] Lipid Profile 12/23/2016 [facility] Triglycerides 312 mg/dL N 97 (Trig/Chol/HDL [address] ) [place] [address] [phone] Cholesterol 253 mg/dL N 98 HDL Cholesterol 57.9 mg/dL N 99 LDL Cholesterol 133 mg/dL N 100 Laboratory test 12/23/2016 [facility] TSH (Thyroid 1.79 N 0.34 -5.[address] Stim Horm) mcIU/[place] [address] [phone] Vitamin B12 392 pg/mL N 180-914 102 Lyme Disease Serology Negative N Negative 103 C Reactive Protein 2.20 mg/L N < 5.00 104 Erythrocyte Sed Rate 12 mm/Hr N 0-14 105 Comp Metabolic Panel 12/23/2016 [facility] Sodium 140 mmol/L N 133-[address] [place] [address] [phone] Potassium 3.5 mmol/L N 3.5-5.0 Chloride 102 mmol/L N 101-111 Co2 Carbon Dioxide 30 mmol/L N 22-32 Anion Gap 8 mmol/L N 2-11 Glucose 104 mg/dL High 70-100 Blood Urea Nitrogen 15 mg/dL N 6-24 Creatinine 1.09 mg/dL N 0.67-1.17 BUN/Creatinine Ratio 13.8 N 8-20 Calcium 10.3 mg/dL N 8.6-10.3 Total Protein 7.6 g/dL N 6.4-8.9 Albumin 5.0 g/dL N 3.2-5.2 Globulin 2.6 g/dL N 2-4 Albumin/Globulin Ratio 1.9 N 1-3 Total Bilirubin 0.50 mg/dL N 0.2-1.0 Alkaline Phosphatase 26 U/L Low 34-104 Alt 55 U/L High 7-52 Ast 42 U/L High 13-39 Egfr Non- 73.5 N >60 Egfr 94.5 N >60 106 CBC Auto Diff 12/23/2016 [facility] White Blood 6.0 10^3/uL N 3.5-10.[address] [place] [address] [phone] Red Blood Count 4.67 10^6/uL N 4.0-5.4 Hemoglobin 14.2 g/dL N 14.0-18.0 Hematocrit 41 % Low 42-52 Mean Corpuscular Volume 87 fL N 80-94 Mean Corpuscular Hemoglobin 30 pg N 27-31 Mean Corpuscular HGB Conc 35 g/dL N 31-36 Red Cell Distribution Width 13 % N 10.5-15 Platelet Count 209 10^3/uL N 150-450 Mean Platelet Volume 9 um3 N 7.4-10.4 Abs Neutrophils 3.0 10^3/uL N 1.5-7.7 Abs Lymphocytes 2.3 10^3/uL N 1.0-4.8 Abs Monocytes 0.4 10^3/uL N 0-0.8 Abs Eosinophils 0.3 10^3/uL N 0-0.6 Abs Basophils 0 10^3/uL N 0-0.2 Abs Nucleated RBC 0.04 10^3/uL N Granulocyte % 50.5 % N 38-83 Lymphocyte % 37.9 % N 25-47 Monocyte % 6.6 % N 1-9 Eosinophil % 4.3 % N 0-6 Basophil % 0.7 % N 0-2 Nucleated Red Blood Cells % 0.7 N 1 Because ethnic data is not always readily [...] 15-29 5 Kidney failure <15 (or dialysis) 2 Because ethnic data is not always [...] 5 Kidney failure <15 (or dialysis) [address] BARTON by [id number] at 1921 on 08/17/18. Results read back accurately. 4 REFERENCE VALUE Cutoff: 500 5 REFERENCE VALUE Cutoff: 200 6 REFERENCE VALUE Cutoff: 100 7 REFERENCE VALUE Cutoff: 150 8 Presumptive Positive Drug confirmation to follow. Presumptive Positive means that the screening method is positive, but the test needs to be run by a confirmatory method before being finalized. ADDITIONAL INFORMATION This report is intended for use in clinical monitoring or management of patients. It is not intended for use in employment-related testing. 9 REFERENCE VALUE Cutoff: 200 mg/L 10 Tylenol 3 11 Metabolite of codeine REFERENCE VALUE Cutoff: 100 12 Deborah Vallejo, Contin; Also a minor metabolite (10%) of codeine and can be seen in low concentrations (<2,000 ng/mL) with poppy seed ingestion. 13 Metabolite of morphine REFERENCE VALUE Cutoff: 100 14 Metabolite of heroin 15 Lortab, Redfield, Vicodin; Also a very minor metabolite of codeine and impurity (<1%) of oxycodone. 16 Metabolite of hydrocodone 17 Metabolite of hydrocodone 18 Dilaudid, Exalgo; Also a metabolite of hydrocodone and a minor (<5%) metabolite of morphine. 19 Metabolite of hydromorphone REFERENCE VALUE Cutoff: 100 20 Endocet, Percocet, Oxycontin 21 Metabolite of oxycodone 22 Numorphan, Opana; Also a metabolite of oxycodone. 23 Metabolite of oxymorphone REFERENCE VALUE Cutoff: 100 24 Metabolite of oxymorphone 25 Actiq, Duragesic, Fentora 26 Metabolite of fentanyl 27 Demerol 28 Metabolite of meperidine 29 Narcan 30 Metabolite of naloxone REFERENCE VALUE Cutoff: 100 31 Dolophine 32 Metabolite of methadone 33 Darvon, Darvocet 34 Metabolite of propoxyphene 35 Tradol, Ultram, Ultracet 36 Metabolite of tramadol 37 Nucynta 38 Metabolite of tapentadol 39 Metabolite of tapentadol REFERENCE VALUE Cutoff: 100 40 Buprenex, Suboxone 41 Metabolite of buprenorphine 42 Metabolite of buprenorphine 43 Test detected the presence of oxycodone and one of its metabolites (noroxycodone) along with [id number]-8-pile-glucuronide (metabolite of oxymorphone). Suspect use of oxycodone and oxymorphone within the past three days. ADDITIONAL INFORMATION This test was developed and its performance characteristics determined by [facility] in a manner consistent with CLIA requirements. This test has not been cleared or approved by the U.S. Food and Drug Administration. Test Performed by: [facility] [employer] [facility] [employer] [address] [place] [id number] REFERENCE VALUE Cutoff: 3.0 45 ADDITIONAL INFORMATION This report is intended for use in clinical monitoring and management of patients. It is not intended for use in employment-related testing. This test was developed and its performance characteristics determined by [facility] in a manner consistent with CLIA requirements. This test has not been cleared or approved by the U.S. Food and Drug Administration. Test Performed by: [facility] [employer] [address] [place] [id number] [id number] REFERENCE VALUE Cutoff: 3.0 48 ADDITIONAL INFORMATION This report is intended for use in clinical monitoring and management of patients. It is not intended for use in employment-related testing. This test was developed and its performance characteristics determined by [facility] in a manner consistent with CLIA requirements. This test has not been cleared or approved by the U.S. Food and Drug Administration. Test Performed by: [facility] - [facility] [address] [place] [address] 49 REFERENCE VALUE Cutoff: 500 50 REFERENCE VALUE Cutoff: 200 51 REFERENCE VALUE Cutoff: 100 52 REFERENCE VALUE Cutoff: 150 53 Presumptive Positive Drug confirmation to follow. Presumptive Positive means that the screening method is positive, but the test needs to be run by a confirmatory method before being finalized. ADDITIONAL INFORMATION This report is intended for use in clinical monitoring or management of patients. It is not intended for use in employment-related testing. 54 REFERENCE VALUE Cutoff: 200 mg/L 55 Tylenol 3 56 Metabolite of codeine REFERENCE VALUE Cutoff: 100 57 Deborah Vallejo, MS Contin; Also a minor metabolite (10%) of codeine and can be seen in low concentrations (<2,000 ng/mL) with poppy seed ingestion. 58 Metabolite of morphine REFERENCE VALUE Cutoff: 100 59 Metabolite of heroin 60 Lortab, Redfield, Vicodin; Also a very minor metabolite of codeine and impurity (<1%) of oxycodone. 61 Metabolite of hydrocodone 62 Metabolite of hydrocodone 63 Dilaudid, Exalgo; Also a metabolite of hydrocodone and a minor (<5%) metabolite of morphine. 64 Metabolite of hydromorphone REFERENCE VALUE Cutoff: 100 65 Endocet, Percocet, Oxycontin 66 Metabolite of oxycodone 67 Numorphan, Opana; Also a metabolite of oxycodone. 68 Metabolite of oxymorphone REFERENCE VALUE Cutoff: 100 69 Metabolite of oxymorphone 70 Actiq, Duragesic, Fentora 71 Metabolite of fentanyl 72 Demerol 73 Metabolite of meperidine 74 Narcan 75 Metabolite of naloxone REFERENCE VALUE Cutoff: 100 76 Dolophine 77 Metabolite of methadone 78 Darvon, Darvocet 79 Metabolite of propoxyphene 80 Tradol, Ultram, Ultracet 81 Metabolite of tramadol 82 Nucynta 83 Metabolite of tapentadol 84 Metabolite of tapentadol REFERENCE VALUE Cutoff: 100 85 Buprenex, Suboxone 86 Metabolite of buprenorphine 87 Metabolite of buprenorphine 88 Test detected the presence of hydrocodone only [...] developed and its performance characteristics determined by [facility] in a manner consistent with CLIA requirements. This test has not been cleared or approved by the U.S. Food and Drug Administration. Test Performed by: [facility] [address] [place] [address] 89 Acute inflammation: >10.00 90 Test Performed by: [facility] - [facility] [address] [place] [address] 91 Because ethnic data is not always readily [...] 15-29 5 Kidney failure <15 (or dialysis) 92 PT IS FASTING 93 REFERENCE VALUE <=1.0 (Negative) 94 REFERENCE VALUE <20.0 (Negative) 95 Tests for antibodies to dsDNA and JANNY antigens are not performed automatically unless the PUNEET result is > or= 3.0 U. Studies performed at [facility] indicate that positive PUNEET results <3.0 U are rarely accompanied by positive second order tests. Test Performed by: [place] [address] 96 Test Performed by: [place] [address] 97 Desirable <150 Borderline high 150-199 High 200-499 Very High >500 98 Desirable <200 Borderline high 200-239 High >239 99 Low <40 Desirable: 40-60 High: >60 100 Desirable: <100 mg/dL Near Optimal: 100-129 mg/dL Borderline High: 130-159 mg/dL High: 160-189 mg/dL Very High: >189 mg/dL 101 PT IS FASTING 102 Normal Range 180 to 914 Indeterminate Range 145 to 180 Deficient Range <145 103 Serologic response to B. burgdorferi infection is not detected, but cannot rule out early infection during which low or undetectable antibody levels to B. burgdorferi may be present. If clinically indicated, a new serum specimen should be submitted in 7-14 days. Test Performed by: [place] [id number] Acute inflammation: >10.00 105 PT IS FASTING 106 Because ethnic data is not always readily [...] Kidney failure <15 (or dialysis) Procedures Date Code Description Status 06/16/2017 84173 Arthroscopy,Knee,Meniscectomy Medial Or Lateral Completed 06/16/2017 82816 Arthroscopy,Knee,Meniscectomy Medial Or Lateral Completed 04/26/2017 11126 Polysomnography Sleep Staging 4+ Parameters Completed 04/26/2017 50461 Inject/Drain Joint/Bursa Major W/O US Completed 01/03/2017 33542 Stress Test Completed Encounters Type Date Location Provider Dx Diagnosis Office Visit 08/21/2018 [facility] Helen Barton MD I10 Essential ( primary) 3:40p Medicine hypertension E87.6 Hypokalemia Office Visit 08/17/2018 3:40p [facility] Helen Barton I1Ryan Essential ( primary) Medicine hypertension R63.4 Abnormal weight loss Office Visit 08/03/2018 9:20a [facility] Agus Zamorano, F17.210 Nicotine dependence, Medicine HEAD WORKER cigarettes, uncomplicated I10 Essential (primary) hypertension M47.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 respiratory [place] infection, unspecified Office Visit 05/01/2018 Neurosurgery Vassilios M47.27 Other spondylosis 3:00p Services Of Sherrie Rivera MD with radiculopathy, lumbosacral region M48.07 Spinal stenosis, lumbosacral region M50.122 Cervical disc disorder at C5-C6 level with radiculopathy Z72.0 Tobacco use Office Visit 04/13/2018 Edgar Garcia M47.27 Other spondylosis 8:30a Neurologic Viry Ledezma with radiculopathy, Services Of [facility] lumbosacral region M48.07 Spinal stenosis, lumbosacral region M50.122 Cervical disc disorder at C5-C6 level with radiculopathy M51.16 Intervertebral disc disorders w radiculopathy, lumbar region G95.89 Other specified diseases of spinal cord Office 03/14/2018 Neurosurgery Vassilios M47.27 Other spondylosis Visit 9:30a Services Of Sherrie Rivera MD with radiculopathy, lumbosacral region M48.07 Spinal stenosis, lumbosacral region Office 11/15/2017 Neurosurgery Vassilios M47.27 Other spondylosis Visit 3:00p Services Of Sherrie Rivera MD with radiculopathy, lumbosacral region M48.07 Spinal stenosis, lumbosacral region Office Visit 08/18/2017 11:40a [facility] Agus Zamorano, M50.122 Cervical disc Medicine HEAD WORKER disorder at C5-C6 level with radiculopathy F10.10 Alcohol abuse, uncomplicated Office Visit 08/09/2017 [facility] Agus Zamorano, HEAD WORKER M51.16 Intervertebral disc 10:40a Medicine disorders w radiculopathy, lumbar region Office Visit 07/06/2017 Neurosurgery Vassilios M50.222 Other cervical disc 9:30a Services Of Sherrie Rivera MD displacement at C5-C6 level M50.223 Other cervical disc displacement at C6-C7 level Office Visit 06/15/2017 Pulmonology And Lidia G47.33 Obstructive 8:15a Sleep Services Of TIN Bernstein, RN, sleep apnea [facility]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 cartilage of right knee, current, init M23.306 Other meniscus derangements, unsp meniscus, right knee M25.461 Effusion, right knee Office Visit 05/11/2017 Neurosurgery Vassilios M50.222 Other cervical 2:30p Services Of Sherrie Rivera MD disc displacement at C5-C6 level M50.223 Other cervical disc displacement at C6-C7 level Office Visit 04/27/2017 Neurosurgery Vassilios M50.222 Other cervical 1:30p Services Of Sherrie Rivera MD disc displacement at C5-C6 level M50.223 Other cervical disc displacement at C6-C7 level M50.122 Cervical disc disorder at C5-C6 level with radiculopathy Office Visit 04/26/2017 Orthopedic Giuseppe Edgar, M23.306 Other meniscus 8:15a Services Of MD altman, unsp C.M.A. meniscus, right knee M25.461 Effusion, right knee M76.51 Patellar tendinitis, right knee Office Visit 04/11/2017 4:20p [facility] Katelin Zamorano, M23.306 Other meniscus Medicine HEAD WORKER derangements, unsp meniscus, right knee Office Visit 04/06/2017 1:00p Orthopedic Giuseppe M23.306 Other meniscus Services Of agapito Hernández unsp C[address] meniscus, right knee M25.461 Effusion, right knee M25.561 Pain in right knee Office Visit 03/15/2017 Neurosurgery Vassilios M50.222 Other cervical 10:30a Services Of Sherrie Rivera MD disc displacement at C5-C6 level M50.223 Other cervical disc displacement at C6-C7 level M50.122 Cervical disc disorder at C5-C6 level with radiculopathy M50.123 Cervical disc disorder at C6-C7 level with radiculopathy Office Visit 03/09/2017 4:20p [facility] Katelin Zamorano NP M25.561 Pain in right Medicine knee Office Visit 02/15/2017 8:45a Pulmonology And Kristine R06.83 Snoring Sleep Services Of MD Erika [facility] E66.09 Other obesity due to excess calories Office Visit 02/14/2017 Neurosurgery V[facility]ilios M54.2 Cervicalgia 2:00p Services Of Sherrie Rivera MD Office Visit 02/03/2017 [facility] Katelin Gramajo K62.5 Hemorrhage of 3:20p Medicine - Viry Vuong anus and rectum [place] Office Visit 01/14/2017 [facility] Katelin Zamorano NP R20.8 Other 2:20p Medicine disturbances of skin sensation M50.00 Cervical disc disorder with myelopathy, unsp cervical region M51.16 Intervertebral disc disorders w radiculopathy, lumbar region Office Visit 01/06/2017 9:20a [facility] Agus Lona, M51.16 Intervertebral disc Medicine HEAD WORKER disorders w radiculopathy, lumbar region E78.5 Hyperlipidemia, unspecified I10 Essential (primary) hypertension R94.5 Abnormal results of liver function studies Office Visit 12/22/2016 11:00a [facility] Agus Lona, I10 Essential ( primary) Medicine HEAD WORKER hypertension F10.10 Alcohol abuse, uncomplicated R53.83 Other fatigue R06.83 Snoring R79.82 Elevated C-reactive protein (CRP) M25.561 Pain in right knee Z13.220 Encounter for screening for lipoid disorders R07.89 Other chest pain Plan of Treatment Future Appointment(s):10/03/2018 3:40 pm - Helen Barton MD at [facility] Nnvsnafy65/13/2019 - Helen Barton MDZ01.818 Encounter for other preprocedural examinationNew Orders:EKG, Ordered: 09/04/18E87.6 [id number] Essential ( primary) hypertensionNew Medication:Hydrochlorothiazide 25 mg - take one tablet by mouth every dayFollow up:F/U 4 weeks
--- OUTSIDE RECORDS SUMMARY | 2018-09-10 11:54 | XMS REPORT | Continuity of Care Document ---
:1970 External Reference #:[id number] Author Name Mee Schumacher Care Team Providers Name Role Phone Helen Barton MD Primary Care Physician Unavailable Payers Date Identification Numbers Payment Provider Subscriber Policy Number: [id number] Pawan Chang Group Number: [id number] [address] PayID: [id number] [place] [address] Advance Directives Description No Information Available Problems Active Problems Provider Date Essential hypertension Agus Zamorano NP Onset: 12/27/2016 Alcohol abuse Agus Zamorano NP Onset: 12/27/2016 Neck pain Melba Rivera MD Onset: 03/15/2017 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 Melba Rivera MD Onset: 03/15/2017 Derangement of meniscus Giuseppe Hernández MD Onset: 04/06/2017 Knee joint effusion Giuseppe Hernández MD Onset: 04/06/2017 Current tear of lateral cartilage Giuseppe Hernández MD Onset: 05/30/2017 AND/OR meniscus of knee Obstructive sleep apnea syndrome Lidia Bernstein DNP, RN, Onset: 06/15/2017 [employer]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 Work Status Currently Working Hand Dominance Right-handed Tobacco Use Start: Unknown Light tobacco smoker (10 or fewer cigarettes/day) Smoking Status Reviewed: 08/21/18 Light tobacco smoker (10 or fewer cigarettes/day) [...] Medications SIG Qnty Indications Ordering Date Provider Potassium Chloride Take one tablet 42tabs Helen Barton MD 08/17/2018 [facility] ER twice a day for 20Meq Tablets ER 5 days; then one tablet daily Atenolol 1 by mouth 30tabs Agus Zamorano NP 08/07/2018 50mg Tablets every day Ra Nicotine Gum chew and tuck 100units F17.210 Agus Zamorano NP 08/03/2018 2mg Gum in gum one piece every two hours as needed. Tizanidine HCL take one tablet 60tabs M47.27 Agus Zamorano NP 08/03/2018 4mg by mouth three Tablets times daily as needed Chlorthalidone 08/21/18 reports 30tabs I10 Agus Zamorano NP 08/03/2018 50mg not taking 1 by Tablets mouth every day Blood Pressure Monitor check bp twice 1units I10 Agus Zamorano NP 08/03/2018 Auto Inflate weekly at home [facility] Fluticasone Propionate 2 sprays each 16gm J01.90 Sophia Jordan MD 2018 nostril twice a 50mcg/Act Suspension day for 7 days, then once at bedtime Oxycodone-Acetaminophe 1-2 tabs by 56tabs M51.16 Agus Zamorano NP 08/09/2017 n mouth every 12 5-325mg Tablets hours as needed for pain Knee Brace/Hinged Bars wear on left M25.561 Agus Zamorano NP 04/11/2017 XL knee durign the [facility] day Amlodipine Besylate take one tablet 30tabs Sophia Jordan MD 10mg by mouth every Tablets day History Medications Tamiflu 1 by mouth twice 10caps J06.9 Sarah Fuentes, 06/02/2018 - 75mg Capsules daily for 5 days N.P. 06/07/2018 Voltaren Three Times 15tabs Unknown 02/17/2018 - 25mg Tablets Daily 04/12/2018 DR Wallis Three Times 12tabs Unknown 02/16/2018 - Repack Daily 06/12/2018 10mg Tablets Deltasone Every Day 10tabs Unknown 02/16/2018 - 20mg 06/12/2018 Tablets Gabapentin Take One Capsule 60caps R20.8 Agus Zamorano NP 08/18/2017 - 300mg By Mouth In The 03/14/2018 Capsules Morning And AT Bedtime M50.122 Gabapentin Take [...] 500mg Tablets by mouth twice a day DOG WALKER 06/12/2018 Hydrocodone-Acetaminophe take 1 tablets every 20tabs M23.306 [facility] 2017 - n 6 hours as needed MD Edgar 08/09/2017 7.5-325mg Tablets for post op pain. Hydrocodone-Acetaminophe take 1-2 tablets 42tabs M23.306 Agus Zamorano, 04/11 - n every 8 hours for DOG WALKER 05/20/2017 5-325mg Tablets pain. Meloxicam 1 -2 tablet by mouth 60tabs M25.561 Agus Zamorano, 03/09/2017 - 7.5mg Tablets once daily as needed DOG WALKER 08/09/2017 Knee Sleeve/Open wear on right knee 1units M25.561 Agus Zamorano, 03/09/2017 - Patella/Medium/Neoprene as needed. DOG WALKER 04/11/2017 Misc Gabapentin Take One Capsule By 60caps R20.8 Agus Zamorano, 02/03/2017 - 300mg Capsules Mouth In The Morning DOG WALKER 08/09/2017 And AT Bedtime Gabapentin take 3 caps in the 60caps R20.8 Agus Zamorano, 01/14/2017 - 100mg Capsules morning and every DOG WALKER 02/03/2017 night at bedtime Lisinopril 1 by mouth every day 30tabs Agus Zamorano, 01/06/2017 - 10mg Tablets DOG WALKER 01/06/2017 Voltaren apply as needed for Unknown [...] Available Vital Signs Date Vital Result Comment 08/21/2018 3:52pm Height 72 inches 6'0" Weight [...] Date Facility Test Result H/L Range Note Laboratory test 08/21/2018 [facility] Calcium <pending> finding [address] [place] [address] [phone] CBC Auto Diff 08/17/2018 [facility] White Blood 8.0 10^3/uL N 3.5-10.[address] [place] [address] [phone] Red Blood Count 4.63 10^6/uL N 4.18-5.48 [...] Cells % 0.1 Comp Metabolic Panel 08/17/2018 [facility] Sodium 139 mmol/L N 135-[address] [place] [address] [phone] Chloride 95 mmol/L Low 101-111 Co2 Carbon [...] Egfr Non- 69.2 >60 Egfr 83.7 >60 1 Potassium 2.7 mmol/L Low 3.5-5.0 2 Anion Gap 12 mmol/L High 2-11 Laboratory test 08/17/2018 [facility] TSH (Thyroid 1.62 mcIU/mL N 0.34-5.[address] Stim Horm) [place] [address] [phone] Laboratory test 06/02/2018 [facility] Influenza A/B negative finding Rapid Drug Abuse 20 09/26/2017 [facility] Urine Negative [address] Amphetamine ng/[place] [address] [phone] Urine Barbiturates Negative ng/mL 4 Urine Benzodiazepines Negative ng/mL 5 Urine Cocaine Negative ng/mL 6 Urine Phencyclidine Negative ng/mL Cutoff: 25 Urine Tetrahydrocannabinol Presumptive Posi <SEE NOTE> Abnormal Cutoff: 50 7 ng/mL Creatinine, Urine 237.2 mg/dL Specific [place] 1.017 pH 6.7 Oxidants Negative 8 Adulterants Comment Normal Codeine, Ur Not Detected ng/mL Cutoff: 25 9 Uzitvzo-9-nvvs-glucuronide, Ur Not Detected ng/mL 10 Morphine, Ur Not Detected ng/mL Cutoff: 25 11 Mvmiubeq-0-ipom-glucuronide, U Not Detected ng/mL 12 6-monoacetylmorphine, Ur Not Detected ng/mL Cutoff: 25 13 Hydrocodone, Ur Not Detected ng/mL Cutoff: 25 14 Norhydrocodone, Ur Not Detected ng/mL Cutoff: 25 15 Dihydrocodeine, Ur Not Detected ng/mL Cutoff: 25 16 Hydromorphone, Ur Not Detected ng/mL Cutoff: 25 17 Yzolujbqrjwla1qnrciaedqmefegv Not Detected ng/mL 18 Oxycodone, Ur Present ng/mL Abnormal Cutoff: 25 19 Noroxycodone, Ur Present ng/mL Abnormal Cutoff: 25 20 Oxymorphone, Ur Not Detected ng/mL Cutoff: 25 21 Cfhrjbajrib-4-zfuc-glucuronide Present ng/mL Abnormal 22 Noroxymorphone, Ur Not Detected ng/mL Cutoff: 25 23 Fentanyl, Ur Not Detected ng/mL Cutoff: 2 24 Norfentanyl, Ur Not Detected ng/mL Cutoff: 2 25 Meperidine, Ur Not Detected ng/mL Cutoff: 25 26 Normeperidine, Ur Not Detected ng/mL Cutoff: 25 27 Naloxone, Ur Not Detected ng/mL Cutoff: 25 28 Wkwzmrgz-3-ifxq-glucuronide, U Not Detected ng/mL 29 Methadone, Ur Not Detected ng/mL Cutoff: 25 30 Eddp, Ur Not Detected ng/mL Cutoff: 25 31 Propoxyphene, Ur Not Detected ng/mL Cutoff: 25 32 Norpropoxyphene, Ur Not Detected ng/mL Cutoff: 25 33 Tramadol, Ur Not Detected ng/mL Cutoff: 25 34 O-desmethyltramadol, Ur Not Detected ng/mL Cutoff: 25 35 Tapentadol, Ur Not Detected ng/mL Cutoff: 25 36 N-desmethyltapentadol, Ur Not Detected ng/mL Cutoff: 50 37 Sdgdgwiqqp-pfni-ocrbqjbeotj, U Not Detected ng/mL 38 Buprenorphine, Ur Not Detected ng/mL Cutoff: 5 39 Norbuprenorphine, Ur Not Detected ng/mL Cutoff: 5 40 Norbuprenorphine glucuronide Not Detected ng/mL Cutoff: 20 41 Opioid Interpretation See Comment 42 THC Confirmation 09/26/2017 [facility] Urine Carboxy 121 ng/mL [address] [place] [address] [phone] Urine THC Interpretation Positive. 44 Drug Abuse 08/09/2017 [facility] Urine Amphetamine Negative ng/ mL 45, 46 [address] [place], [place] [id number] [phone] Urine Barbiturates Negative ng/mL 47 Urine Benzodiazepines Negative ng/mL 48 Urine Cocaine Negative ng/mL 49 Urine Phencyclidine Negative ng/mL Cutoff: 25 Urine Tetrahydrocannabinol Presumptive Posi <SEE NOTE> Abnormal Cutoff: 50 50 ng/mL Creatinine, Urine 204.2 mg/dL Specific [place] 1.018 pH 5.6 Oxidants Negative 51 Adulterants Comment Normal Codeine, Ur Not Detected ng/mL Cutoff: 25 52 Zwqbsxi-6-ywgp-glucuronide, Ur Not Detected ng/mL 53 Morphine, Ur Not Detected ng/mL Cutoff: 25 54 Hcayyhon-7-luys-glucuronide, U Not Detected ng/mL 55 6-monoacetylmorphine, Ur Not Detected ng/mL Cutoff: 25 56 Hydrocodone, Ur Present ng/mL Abnormal Cutoff: 25 57 Norhydrocodone, Ur Not Detected ng/mL Cutoff: 25 58 Dihydrocodeine, Ur Not Detected ng/mL Cutoff: 25 59 Hydromorphone, Ur Not Detected ng/mL Cutoff: 25 60 Cwavtythlkpam0tvxnqdgobnuidcr Not Detected ng/mL 61 Oxycodone, Ur Not Detected ng/mL Cutoff: 25 62 Noroxycodone, Ur Present ng/mL Abnormal Cutoff: 25 63 Oxymorphone, Ur Not Detected ng/mL Cutoff: 25 64 Jpnlqvqyvcb-5-qrxz-glucuronide Not Detected ng/mL 65 Noroxymorphone, Ur Not Detected ng/mL Cutoff: 25 66 Fentanyl, Ur Not Detected ng/mL Cutoff: 2 67 Norfentanyl, Ur Not Detected ng/mL Cutoff: 2 68 Meperidine, Ur Not Detected ng/mL Cutoff: 25 69 Normeperidine, Ur Not Detected ng/mL Cutoff: 25 70 Naloxone, Ur Not Detected ng/mL Cutoff: 25 71 Hbdchlyg-9-loyu-glucuronide, U Not Detected ng/mL 72 Methadone, Ur Not Detected ng/mL Cutoff: 25 73 Eddp, Ur Not Detected ng/mL Cutoff: 25 74 Propoxyphene, Ur Not Detected ng/mL Cutoff: 25 75 Norpropoxyphene, Ur Not Detected ng/mL Cutoff: 25 76 Tramadol, Ur Present ng/mL Abnormal Cutoff: 25 77 O-desmethyltramadol, Ur Present ng/mL Abnormal Cutoff: 25 78 Tapentadol, Ur Not Detected ng/mL Cutoff: 25 79 N-desmethyltapentadol, Ur Not Detected ng/mL Cutoff: 50 80 Rncdlgdmdz-jxoe-bxkucjjafnq, U Not Detected ng/mL 81 Buprenorphine, Ur Not Detected ng/mL Cutoff: 5 82 Norbuprenorphine, Ur Not Detected ng/mL Cutoff: 5 83 Norbuprenorphine glucuronide Not Detected ng/mL Cutoff: 20 84 Opioid Interpretation See Comment 85 THC Confirmation 08/09/2017 [facility] Urine Carboxy 125 ng/mL [address] [place] [address] [phone] Urine THC Interpretation Positive. 87 CBC Auto Diff 02/03/2017 [facility] White Blood 6.7 10^3/uL N 3.5-10.[address] [place] [address] [phone] Red Blood Count 4.35 10^6/uL N 4.0-5.4 [...] Blood Cells % 0.1 N Laboratory test 02/03/2017 [facility] C Reactive 1.70 mg/L N < 5.00 88 finding 101 [facility] [place] [address] [phone] Erythrocyte Sed Rate 11 mm/Hr N 0-14 Laboratory test 02/02/2017 [facility] Rheumatoid <15 IU/mL N < 15 89 finding [address] [employer] [place] [address] [phone] Comp Metabolic 02/02/2017 [facility] Sodium 139 mmol/L N 133- 145 Panel [address] [place] [address] [phone] Potassium 3.7 mmol/L N 3.5-5.0 Chloride 104 [...] 75.1 N >60 Egfr 96.6 N >60 90 CBC Auto Diff 12/23/2016 [facility] White Blood 6.0 10^3/uL N 3.5-10.[address] [place] [address] [phone] Red Blood Count 4.67 10^6/uL N 4.0-5.4 [...] Nucleated Red Blood Cells % 0.7 N Comp Metabolic Panel 12/23/2016 [facility] Sodium 140 mmol/L N 133-[address] [place] [address] [phone] Potassium 3.5 mmol/L N 3.5-5.0 Chloride 102 [...] 73.5 N >60 Egfr 94.5 N >60 92 Lipid Profile 12/23/2016 [facility] Triglycerides 312 mg/dL N 93 (Trig/Chol/HDL) [address] [place], [place] [id number] [phone] Cholesterol 253 mg/dL N 94 HDL Cholesterol 57.9 mg/dL N 95 LDL Cholesterol 133 mg/dL N 96 Laboratory test 12/23/2016 [facility] Rheumatoid 16 IU/mL Abnormal <15 97 finding 101 [facility] [place] [address] [phone] Connective 12/23/2016 [facility] Anti-Nuclear 0.2 U N 98 Tissue Panel [address] [facility] [place] [address] [phone] Cyclic Citrullinated Peptide <15.6 U N 99 Interpretation See Comment N 100 Laboratory test 12/23/2016 [facility] TSH (Thyroid 1.79 N 0.34 -5.60 101 finding 101 [facility] Stim Horm) mcIU/mL [place], [place] [id number] [phone] Vitamin B12 392 pg/mL N 180-914 102 Lyme Disease Serology Negative N Negative 103 C Reactive Protein 2.20 mg/L N < 5.00 104 Erythrocyte Sed Rate 12 mm/Hr N 0-14 105 1 Because ethnic data is not always [...] 5 Kidney failure <15 (or dialysis) [address] BARTON by [id number] at 1921 on 08/17/18. Results read back accurately. 3 REFERENCE VALUE Cutoff: 500 4 REFERENCE VALUE Cutoff: 200 5 REFERENCE VALUE Cutoff: 100 6 REFERENCE VALUE Cutoff: 150 7 Presumptive Positive Drug confirmation to follow. Presumptive Positive means that the screening method is positive, but the test needs to be run by a confirmatory method before being finalized. ADDITIONAL INFORMATION This report is intended for use in clinical monitoring or management of patients. It is not intended for use in employment-related testing. 8 REFERENCE VALUE Cutoff: 200 mg/L 9 Tylenol 3 10 Metabolite of codeine REFERENCE VALUE Cutoff: 100 11 Deborah Vallejo, Contin; Also a minor metabolite (10%) of codeine and can be seen in low concentrations (<2,000 ng/mL) with poppy seed ingestion. 12 Metabolite of morphine REFERENCE VALUE Cutoff: 100 13 Metabolite of heroin 14 Lortab, Ethel, Vicodin; Also a very minor metabolite of codeine and impurity (<1%) of oxycodone. 15 Metabolite of hydrocodone 16 Metabolite of hydrocodone 17 Dilaudid, Exalgo; Also a metabolite of hydrocodone and a minor (<5%) metabolite of morphine. 18 Metabolite of hydromorphone REFERENCE VALUE Cutoff: 100 19 Endocet, Percocet, Oxycontin 20 Metabolite of oxycodone 21 Numorphan, Opana; Also a metabolite of oxycodone. 22 Metabolite of oxymorphone REFERENCE VALUE Cutoff: 100 23 Metabolite of oxymorphone 24 Actiq, Duragesic Fentora 25 Metabolite of fentanyl 26 Demerol 27 Metabolite of meperidine 28 Narcan 29 Metabolite of naloxone REFERENCE VALUE Cutoff: 100 30 Dolophine 31 Metabolite of methadone 32 Darvon, Darvocet 33 Metabolite of propoxyphene 34 Tradol, Ultram, Ultracet 35 Metabolite of tramadol 36 Nucynta 37 Metabolite of tapentadol 38 Metabolite of tapentadol REFERENCE VALUE Cutoff: 100 39 Buprenex, Suboxone 40 Metabolite of buprenorphine 41 Metabolite of buprenorphine 42 Test detected the presence of oxycodone and one of its metabolites (noroxycodone) along with nomyxdcwxzv-3-jlzg-glucuronide (metabolite of oxymorphone). Suspect use of oxycodone and oxymorphone within the past three days. ADDITIONAL INFORMATION This test was developed and its performance characteristics determined by [facility] in a manner consistent with CLIA requirements. This test has not been cleared or approved by the U.S. Food and Drug Administration. Test Performed by: [facility] - [address] [address] 43 REFERENCE VALUE Cutoff: 3.0 44 ADDITIONAL INFORMATION This report is intended for use in clinical monitoring and management of patients. It is not intended for use in employment-related testing. This test was developed and its performance characteristics determined by [facility] in a manner consistent with CLIA requirements. This test has not been cleared or approved by the U.S. Food and Drug Administration. Test Performed by: [facility] - [facility] [employer] [address] [place] [id number] REFERENCE VALUE Cutoff: 500 47 REFERENCE VALUE Cutoff: 200 48 REFERENCE VALUE Cutoff: 100 49 REFERENCE VALUE Cutoff: 150 50 Presumptive Positive Drug confirmation to follow. Presumptive Positive means that the screening method is positive, but the test needs to be run by a confirmatory method before being finalized. ADDITIONAL INFORMATION This report is intended for use in clinical monitoring or management of patients. It is not intended for use in employment-related testing. 51 REFERENCE VALUE Cutoff: 200 mg/L 52 Tylenol 3 53 Metabolite of codeine REFERENCE VALUE Cutoff: 100 54 Deborah Vallejo, Contin; Also a minor metabolite (10%) of codeine and can be seen in low concentrations (<2,000 ng/mL) with poppy seed ingestion. 55 Metabolite of morphine REFERENCE VALUE Cutoff: 100 56 Metabolite of heroin 57 Lortab, Ethel, Vicodin; Also a very minor metabolite of codeine and impurity (<1%) of oxycodone. 58 Metabolite of hydrocodone 59 Metabolite of hydrocodone 60 Dilaudid, Exalgo; Also a metabolite of hydrocodone and a minor (<5%) metabolite of morphine. 61 Metabolite of hydromorphone REFERENCE VALUE Cutoff: 100 62 Endocet, Percocet, Oxycontin 63 Metabolite of oxycodone 64 Numorphan, Opana; Also a metabolite of oxycodone. 65 Metabolite of oxymorphone REFERENCE VALUE Cutoff: 100 66 Metabolite of oxymorphone 67 Actiq, Duragesic, Fentora 68 Metabolite of fentanyl 69 Demerol 70 Metabolite of meperidine 71 Narcan 72 Metabolite of naloxone REFERENCE VALUE Cutoff: 100 73 Dolophine 74 Metabolite of methadone 75 Darvon, Darvocet 76 Metabolite of propoxyphene 77 Tradol, Ultram, Ultracet 78 Metabolite of tramadol 79 Nucynta 80 Metabolite of tapentadol 81 Metabolite of tapentadol REFERENCE VALUE Cutoff: 100 82 Buprenex, Suboxone 83 Metabolite of buprenorphine 84 Metabolite of buprenorphine 85 Test detected the presence of hydrocodone only [...] developed and its performance characteristics determined by [facility] in a manner consistent with CLIA requirements. This test has not been cleared or approved by the U.S. Food and Drug Administration. Test Performed by: [facility] - [address] [address] 86 REFERENCE VALUE Cutoff: 3.0 87 ADDITIONAL INFORMATION This report is intended for use in clinical monitoring and management of patients. It is not intended for use in employment-related testing. This test was developed and its performance characteristics determined by [facility] in a manner consistent with CLIA requirements. This test has not been cleared or approved by the U.S. Food and Drug Administration. Test Performed by: [facility] - [address] [address] 88 Acute inflammation: >10.00 89 Test Performed by: [address] [address] 90 Because ethnic data is not always readily [...] 15-29 5 Kidney failure <15 (or dialysis) 91 PT IS FASTING 92 Because ethnic data is not always readily [...] 15-29 5 Kidney failure <15 (or dialysis) 93 Desirable <150 Borderline high 150-199 High 200-499 Very High >500 94 Desirable <200 Borderline high 200-239 High >239 95 Low <40 Desirable: 40-60 High: >60 96 Desirable: <100 mg/dL Near Optimal: 100-129 mg/dL Borderline High: 130-159 mg/dL High: 160-189 mg/dL Very High: >189 mg/dL 97 Test Performed by: [address] [address] 98 REFERENCE VALUE <=1.0 (Negative) 99 REFERENCE VALUE <20.0 (Negative) 100 Tests for antibodies to dsDNA and JANNY antigens are not performed automatically unless the PUNEET result is > or= 3.0 U. Studies performed at [facility] indicate that positive PUNEET results <3.0 U are rarely accompanied by positive second order tests. Test Performed by: [facility] [address] [place] [address] 101 PT IS FASTING 102 Normal Range 180 to 914 Indeterminate Range 145 to 180 Deficient Range <145 103 Serologic response to B. burgdorferi infection is not detected, but cannot rule out early infection during which low or undetectable antibody levels to B. burgdorferi may be present. If clinically indicated, a new serum specimen should be submitted in 7-14 days. Test Performed by: [facility] [address] [place] [address] 104 Acute inflammation: >10.00 105 PT IS FASTING Procedures Date Code Description Status 06/16/2017 05998 Arthroscopy,Knee,Meniscectomy Medial Or Lateral Completed 06/16/2017 60212 Arthroscopy,Knee,Meniscectomy Medial Or Lateral Completed 04/26/2017 13969 Polysomnography Sleep Staging 4+ Parameters Completed 04/26/2017 15058 Inject/Drain Joint/Bursa Major W/O US Completed 01/03/2017 05376 Stress Test Completed Encounters Type Date Location Provider Dx Diagnosis Office Visit 08/17/2018 [facility] Internal Helen Barton MD I10 Essential ( primary) 3:40p Medicine hypertension R63.4 Abnormal weight loss Office Visit 08/03/2018 9:20a [facility] Internal Agus Zamorano, F17.210 Nicotine dependence, Medicine DOG WALKER cigarettes, uncomplicated I10 Essential (primary) hypertension M47.27 Other spondylosis with radiculopathy, lumbosacral region M50.122 Cervical disc disorder at C5-C6 level with radiculopathy Office Visit 06/14/2018 3:40p [facility] Internal Sophia Jordan J01.90 Acute sinusitis, Medicine - MD unspecified [address] I10 Essential (primary) hypertension Office Visit 06/02/2018 [facility] Internal Sarah Fuentes J06.9 Acute upper 3:40p Medicine - N.P. respiratory [place] infection, unspecified Office Visit 05/01/2018 Neurosurgery Vassilios M47.27 Other spondylosis 3:00p Services Of Sherrie Rivera MD with radiculopathy, lumbosacral region M48.07 Spinal stenosis, lumbosacral region M50.122 Cervical disc disorder at C5-C6 level with radiculopathy Z72.0 Tobacco use Office Visit 04/13/2018 Edgar Garcia M47.27 Other spondylosis 8:30a Neurologic Viry Ledezma with radiculopathy, Services Of [facility] lumbosacral region M48.07 Spinal stenosis, lumbosacral region [...] stenosis, lumbosacral region Office Visit 08/18/2017 11:40a [facility] Internal Agus Zamorano, M50.122 Cervical disc Medicine DOG WALKER disorder at C5-C6 level with radiculopathy F10.10 Alcohol abuse, uncomplicated Office Visit 08/09/2017 [facility] Internal Agus Zamorano, DOG WALKER M51.16 Intervertebral disc 10:40a Medicine disorders w radiculopathy, lumbar region Office Visit 07/06/2017 Neurosurgery Vassilios M50.222 Other cervical disc 9:30a Services Of Sherrie Rivera MD displacement at C5-C6 level M50.223 Other cervical disc displacement at C6-C7 level Office Visit 06/15/2017 Pulmonology And Lidia G47.33 Obstructive 8:15a Sleep Services Of TIN Bernstein, RN, sleep apnea [facility]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) Office Visit 05/30/2017 Orthopedic Giuseppesia Hernández, S83.31xA Tear of 2:30p Services Of [...] tendinitis, right knee Office Visit 04/11/2017 4:20p [facility] Internal Agus Zamorano, M23.306 Other meniscus Medicine DOG WALKER derangements, unsp meniscus, right knee Office Visit [...] level with radiculopathy Office Visit 03/09/2017 4:20p [facility] Katelin Zamorano NP M25.561 Pain in right Medicine knee Office Visit 02/15/2017 8:45a Pulmonology And Kristine R06.83 Snoring Sleep Services Of MD Erika [facility] E66.09 Other obesity due to excess calories Office Visit 02/14/2017 Neurosurgery Vassilios M54.2 Cervicalgia 2:00p Services Of Sherrie Rivera MD Office Visit 02/03/2017 [facility] Katelin Gramajo K62.5 Hemorrhage of 3:20p Medicine - Viry Vuong anus and rectum [place] Office Visit 01/14/2017 [facility] Katelin Zamorano NP R20.8 Other 2:20p Medicine disturbances of skin sensation M50.00 Cervical disc disorder with myelopathy, unsp cervical region M51.16 Intervertebral disc disorders w radiculopathy, lumbar region Office Visit 01/06/2017 9:20a [facility] Internal Agus Lona, M51.16 Intervertebral disc Medicine DOG WALKER disorders w radiculopathy, lumbar region E78.5 Hyperlipidemia, unspecified I10 Essential (primary) hypertension R94.5 Abnormal results of liver function studies Office Visit 12/22/2016 11:00a [facility] Internal Agusyenny Zamorano, I10 Essential ( primary) Medicine DOG WALKER hypertension F10.10 Alcohol abuse, uncomplicated R53.83 Other fatigue R06.83 Snoring R79.82 Elevated C-reactive protein (CRP) M25.561 Pain in right knee Z13.220 Encounter for screening for lipoid disorders R07.89 Other chest pain Plan of Treatment Future Appointment(s):09/04/2018 2:00 pm - Helen Barton MD at [facility] Mrhhqjtn73/29/2019 - Helen Barton MDI10 Essential (primary) hypertensionComments :Your blood pressure is fine. Continue the same medication Amlodipine 10mg + Atenolol 50mg twice a dayFollow up:F/U 2 weeks for pre-op felzbjejkN37.6 Hypokalemia
[2018-09-10] MEDS ORDERED: methylPREDNISolone 125 MG* 2 ML VIAL IV ONE (12:02)
[2018-09-10] MEDS ORDERED: NS 0.9% 1000 ML** 1,000 ML BOLUS ONE (12:02)
[2018-09-10] MEDS ORDERED: diPHENhydraMINE IV* 50 MG/ML 1 ml VIAL (BENADRYL) SLOW PUSH ONE (12:02)
[2018-09-10] MEDS ORDERED: Famotidine IV* 10 MG/ML 2 ML (20 mg) IV SLOW PU ONE (12:03)
--- NOTE | 2018-09-10 12:33 | UC ---
Allergic Reaction HPI - HPI Summary HPI Summary: 48 yo male with onset this AM of severe pruritis/hives/eyelid edema and tightness of throat and swelling under chin no cp of sob no URI symptoms - History of Current Complaint Chief Complaint: UCRash Stated Complaint: RASH Time Seen by Provider: 09/10/18 11:53 Hx Obtained From: Patient Onset/Duration: Gradual Onset Severity Initially: Mild Severity Currently: Severe Pain Intensity: 10 - from his chronic back and neck pain Pain Scale Used: 0-10 Numeric Location: Diffuse Character: Swelling - lids, Pruritus - diffuse, Hives Aggravating Factor(s): Nothing Alleviating Factor(s): Nothing Associated Signs And Symptoms: Positive: Rash. Negative: Abdominal Pain, Chest Pain, Cough Wheezing, Diaphoresis, Difficulty Breathing, Hoarseness, Lightheadedness, Nausea, Syncope, Throat Tightening, Vomiting - Related Hx Possible Reaction To: Unknown - Allergies/Home Medications Allergies/Adverse Reactions: Allergies Allergy/AdvReac Type Severity Reaction Status Date / Time lisinopril Allergy Rash Verified 09/10/18 12:01 Home Medications: Home Medications Atenolol [Tenormin 25 MG] 25 mg PO DAILY WITH MEAL 09/10/18 [History Confirmed 09/10/18] PMH/Surg Hx/FS Hx/Imm Hx Previously Healthy: Yes Cardiovascular History: Hypertension - Surgical History Surgical History: Yes Surgery Procedure, Year, and Place: ARTHROSCOPY RIGHT KNEE 06/16/15 - Family History Known Family History: Positive: Cardiac Disease - [place] (grandmother), Hypertension , Other - CVA (mother), liver failure from EtOH (father) - Social History Alcohol Use: Rare Alcohol Amount: HX OF ALCOHOL ABUSE Substance Use Type: Marijuana, Prescribed Smoking Status (MU): Current Every Day Smoker Type: Cigarettes Amount Used/How Often: 5 cigarettes/day Have You Smoked in the Last Year: Yes Household Exposure Type: Cigarettes - Immunization History Most Recent Influenza Vaccination: denies Review of Systems All Other Systems Reviewed And Are Negative: Yes Constitutional: Positive: Negative Skin: Positive: Rash Eyes: Positive: Negative ENT: Positive: Negative Respiratory: Positive: Negative Cardiovascular: Positive: Negative Gastrointestinal: Positive: Negative Genitourinary: Positive: Dysuria Motor: Positive: Negative Neurovascular: Positive: Negative Musculoskeletal: Positive: Arthralgia - back and C-spine Neurological: Positive: Negative Psychological: Positive: Negative Physical Exam Triage Information Reviewed: Yes Appearance: Well-Appearing, No Pain Distress, Well-Nourished Vital Signs: Initial Vital Signs Temp 100.1 F 09/10/18 11:54 Pulse 101 09/10/18 11:54 Resp 20 09/10/18 11:54 BP 124/83 09/10/18 11:54 Pulse Ox 97 09/10/18 11:54 Vital Signs Reviewed: Yes Eyes: Positive: Conjunctiva Clear, Other: - periorbial edema ENT: Positive: Hearing grossly normal, TMs normal, Uvula midline, Other - no stridor/no tongue edema/no uvular edema. Negative: Pharyngeal erythema, Nasal congestion, Nasal drainage, Tonsillar swelling, Tonsillar exudate, Trismus, Muffled voice, Hoarse voice, Dental tenderness, Sinus tenderness Neck: Positive: Supple, Nontender, No Lymphadenopathy Respiratory: Positive: Lungs clear, Normal breath sounds, No respiratory distress, No accessory muscle use Cardiovascular: Positive: RRR, No Murmur Musculoskeletal: Positive: ROM Intact, No Edema Neurological: Positive: Alert Psychological Exam: Normal Skin Exam: Other - hives Re-Evaluation - Re-Evaluation First Eval Re-Evaluation Time: 13:00 Change: Unchanged - still with lid edema and hives, some perioral edema (mild) Second Eval Re-Evaluation Time: 13:44 Change: Improved - hives almost completely gone, periorbital edema less, patient sleeping and easily arousable Allergic Reaction Course/Dx - Differential Dx/Diagnosis Provider Diagnosis: Anaphylactic reaction Discharge - Sign-Out/Discharge Documenting (check all that apply): Patient Departure All imaging exams completed and their final reports reviewed: No Studies - Discharge Plan Condition: Improved Disposition: HOME Prescriptions: EPINEPHrine [Epipen 2-Kelton] 0.3 mg IM ONCE PRN #1 inj PRN Reason: Allergy Symptoms Famotidine TAB* [Pepcid 20 MG TAB*] 20 mg PO DAILY #5 tab hydrOXYzine HCL TAB* [Atarax TAB*] 25 - 50 mg PO QID PRN #20 tab PRN Reason: Itching predniSONE [Deltasone 20 MG TAB] 40 mg PO DAILY #10 tab Patient Education Materials: Anaphylaxis (ED) Referrals: Jose Ramon Barrow MD [Medical Doctor] - As Soon As Possible Darby Peters MD [Primary Care Provider] - 1 Day Additional Instructions: To ER for higher fever TO ER for new or worsening symptoms Take first dose of prednisone when you get home then every AM until finished take pepcid every night at bedtime use epi pen for severe allergic reaction (not just hives/itching) if you need to use the epi pen you need to go CARLO[facility] to ER I suggest you see an pelletizer operator - Billing Disposition and Condition Condition: IMPROVED Disposition: Home
[2018-09-10] MEDS ORDERED: EPINEPHRINE 1 MG/ML 1 ML VIAL IM ONE (12:55)
[2018-09-10 14:22] VITALS: BP 129/84
== END 2018-09-10 14:06 | disposition home or self-care (01) ==
LOC: UCEAST 11:48
DX: T78.2XXA Anaphylactic shock, unspecified, initial encounter (principal); L50.9 Urticaria, unspecified; H02.849 Edema of unspecified eye, unspecified eyelid; R30.0 Dysuria; M54.9 Dorsalgia, unspecified; M54.2 Cervicalgia; I10 Essential (primary) hypertension; Z88.8 Allergy status to other drugs, medicaments and biological substances; F17.210 Nicotine dependence, cigarettes, uncomplicated
CPT/HCPCS: 96360; 96372; 96374; 96375; 99212; G0463; J1200; J2930

== ENCOUNTER 2018-09-20 08:35 | Day surgery (SDC) | payer OTHER ==
[~2018-09-20 08:35] MED LIST changes: -Buffered Lidocaine 0.9% SYRIN* 5 ML/SYR SYRINGE INTRADERM ONE; +Buffered Lidocaine 1% SYRIN* 1 ML/SYRINGE INTRADERM ONE; +Dexamethasone IV* 4 MG/ML 1 ML (4 MG) IV SLOW PU ONE; +Famotidine IV* 10 MG/ML 2 ML (20 mg) IV ONE; +Lactated Ringers 1000 ML Bag* 1,000 ML IV SCH
[2018-09-20] MEDS ORDERED: Sodium Citrate/Citric Acid* 15 ML UDC ONE (08:54)
[2018-09-20] MEDS ORDERED: Buffered Lidocaine 1% SYRIN* 1 ML/SYRINGE INTRADERM ONE (08:54)
[2018-09-20] MEDS ORDERED: Triamcinolone Acetonide* 40 MG/ML 1 ML VIAL ONE (09:42)
[2018-09-20] MEDS ORDERED: Lidocaine 2% EPI 1:200000 MPF*10-20 ML VIAL ONE (09:43)
[2018-09-20] MEDS ORDERED: Gelfoam 12-7 ADSORBABL SPONGE* 1 EA SPONGE ONE (09:43)
[2018-09-20] MEDS ORDERED: Oxymetazoline 0.05% NASAL SPR* 15 ML BTL ONE (09:43)
[2018-09-20] MEDS ORDERED: Propofol* 10 MG/ML 20 ML BTL ONE ×2 (09:52→10:21)
[2018-09-20] MEDS ORDERED: Lidocaine 2% PF * 5 ML VIAL ONE (09:53)
[2018-09-20] MEDS ORDERED: Midazolam* 1 MG/ML 2 ML VIAL (2 MG) ONE (09:54)
[2018-09-20] MEDS ORDERED: Dexamethasone IV* 4 MG/ML 1 ML (4 MG) ONE (09:54)
[2018-09-20] MEDS ORDERED: fentaNYL* 50 MCG/ML 2 ML VIAL (100 MCG VIAL) ONE ×3 (09:54→11:57)
[2018-09-20] MEDS ORDERED: Atenolol TAB* 25 MG PO ONE (10:00)
[2018-09-20] MEDS ORDERED: Labetalol IV* 5 MG/ML 20 ML VIAL ONE (10:14)
[2018-09-20] MEDS ORDERED: Naloxone* 0.4 MG/ML 1 ML VIAL IV PRN (10:52)
[2018-09-20] MEDS ORDERED: Ondansetron INJ* 2 MG/ML VIAL IV PRN (10:52)
[2018-09-20] MEDS: fentaNYL* 50 MCG/ML 2 ML VIAL (100 MCG VIAL) IV PRN ×4 (11:17→12:37)
[2018-09-20] MEDS ORDERED: HYDROcodone/ACETAMIN 5-325 MG* 1 TAB ONE (11:38)
[2018-09-20] MEDS ORDERED: hydrALAZINE IV* 20 MG/ML VIAL ONE (11:47)
--- NOTE | 2018-09-20 13:10 | OP ---
OPERATIVE REPORT: DATE OF OPERATION: 09/20/18 - SDS DATE OF : 74 SURGEON: Pj Corrigan MD ANESTHESIOLOGIST: Adam Johnson DO ANESTHESIA: General. PRE-OP DIAGNOSIS: Chronic sinusitis with nasal polyposis. POST-OP DIAGNOSIS: Chronic sinusitis with nasal polyposis. OPERATIVE PROCEDURE: Endoscopic maxillary antrostomy, removal of tissue, and bilateral anterior ethmoidectomy. BRIEF HISTORY: This is a 48-year-old gentleman with a history of chronic sinusitis, nasal polyposis, nasal dyspnea, failing medical management, elected for surgical therapy. CT scan showed extensive opacification in the sinuses. He did have some nasal polyposis on endoscopic examination. DESCRIPTION OF PROCEDURE: The patient was taken to the operating room, general anesthetic was given, the patient was intubated. Nose was decongested with Afrin placed pledgets. A 0-degree telescope, 30-degree telescopes, and other endoscopic sinus surgery instruments including the microshaver were utilized. Subsequently, 2% lidocaine with epinephrine was infiltrated in the mucosa of the uncinate process on both sides, into the polypoidal tissue, and into the middle turbinate. We turned our attention to the right side initially. Microshaver was used to remove the polyp and the antral opening was identified. Uncinate process was peeled out anteriorly and microshaver was used to remove it completely. The antrum was then entered and copious purulent material was suctioned out. A large polypoidal mass was then microshaved away until the mucosa was smooth. The antrostomy was then further enlarged sacrificing some of the lateral nasal wall towards the posterior wall of the maxillary sinus and fontanelle. Ethmoidectomy was carried out removing the ethmoidal bulla front face laterally towards the lamina papyracea into the nasal frontal duct superiorly and towards the lamina papyracea laterally and posteriorly into the ground lamella. This area was then packed with Gelfilm and Gelfoam. We then turned our attention to the left side. Again, the uncinate process was peeled out. Antrostomy was carried out, enlarging it, polypoidal mucosa was then shaved in from the sinus. Next, we turned our attention to the ethmoidal cells resecting out the front face of the bulla towards the lamina papyracea and superiorly into the nasal frontal duct area and posteriorly towards the lamina papyracea and ground lamella region. Once this was done, again the packing was placed at the space between the middle turbinate and lateral nasal wall. The patient was then awakened and sent to the recovery room in stable condition. Small nasal dressing was applied. Blood loss was approximately 100 cc. [id number]/[facility] #: [id number] MTDFredis
[2018-09-20 13:17] VITALS: BP 131/99
== END 2018-09-20 13:15 | disposition home or self-care (01) ==
LOC: OR 08:35
PROVIDERS: ATTEND Otolaryngology
DX: J33.9 Nasal polyp, unspecified (principal); J32.9 Chronic sinusitis, unspecified; I10 Essential (primary) hypertension; F17.210 Nicotine dependence, cigarettes, uncomplicated; G47.33 Obstructive sleep apnea (adult) (pediatric); M19.90 Unspecified osteoarthritis, unspecified site
CPT/HCPCS: 88305; 88342; A9270-GY; J0360; J1100; J2250; J2704; J3010; J3301

== ENCOUNTER 2018-10-11 06:44 | Emergency (ER) | payer OTHER ==
[2018-10-11 06:49] VITALS: BP 134/104
[2018-10-11] MEDS ORDERED: Fluorescein Sodium TOPICAL* 1 MG TEST STRIP OPHTHALMIC ONE (06:56)
[2018-10-11] MEDS ORDERED: Fluorescein Sodium TOPICAL* 1 MG TEST STRIP ONE (06:57)
[2018-10-11] MEDS ORDERED: Tetracaine 0.5% OPTH.SOL 4 ML* 1 DROP BTL ONE (06:57)
[2018-10-11] MEDS ORDERED: Tetracaine 0.5% OPTH.SOL 4 ML* 1 DROP BTL LEFT EYE SCH (07:00)
[2018-10-11] MEDS: HYDROcodone/ACETAMIN 5-325 MG* 1 TAB PO ONE (07:16)
[2018-10-11] MEDS: Ciprofloxacin 0.3% OPTH.SOL* BTL LEFT EYE ONE (07:16)
--- OUTSIDE RECORDS SUMMARY | 2018-10-11 07:27 | XMS REPORT | Continuity of Care Document ---
:1970 External Reference #:[id number] Author Name Pj Corrigan MD Address [address] [place] [address] Care Team Providers Name Role Phone Julian LANE, Sophia Care Team Information Cigar Head Holer Unavailable Lona KRUGER, Agus Primary Care Physician Unavailable Payers Date Identification Numbers Payment Provider Subscriber Effective: 2018 Policy Number: [id number] [facility] Carmelo Chang PayID: [id number] [address] [place] [address] Problems Active Problems Provider Date Essential hypertension Pj Corrigan MD Onset: 07/07/2018 Family History Date Family Member(s) Observation Comments General Allergies General Asthma General Diabetes General Hearing Loss General Heart Attack General Heart Disease General Migraine General Vertigo Social History Type Date Description Comments Sex Unknown Occupation [employer] Tobacco Use Start: Unknown Current Cigarette Smoker 1-5 Cigarettes Daily Tobacco Use Start: Unknown Never Smoked Cigars Tobacco Use Start: Unknown Never Smoked A Pipe Smokeless Tobacco Never Used Smokeless Tobacco ETOH Use Currently occasionally consumes alcohol Tobacco Use Start: Unknown Light tobacco smoker (10 or fewer cigarettes/day) Smoking Status Reviewed: 07/31/18 Light tobacco smoker (10 or fewer cigarettes/day) Allergies, Adverse Reactions, Alerts Active Allergies Reaction Severity Comments Date Lisinopril 07/07/2018 Medications Active Medications SIG Qnty Indications Ordering Date Provider Amlodipine Besylate Take One Tablet Unknown 10mg Tablets By Mouth Every Day Fluticasone Propionate as directed Sophia Jordan MD 50mcg/Act Suspension Hydrochlorothiazide Take One Tablet Unknown 25mg Tablets By Mouth Every Day Famotidine Unknown 40mg/5ML Suspension Rec Atenolol Lona ENTRY LEVEL CIVIL ENGINEER, Agus 50mg Tablets History Medications Augmentin take 1 tab 2 20tabs J33.9 Pj Corriagn MD 07/31/2018 - 875-125mg times a day for 09/15/2018 Tablets 10 days Prednisone 4 tabs po every 21tabs J33.9 Pj Corrigan MD 07/31/2018 - 10mg day x3 d, then 2 09/15/2018 Tablets tabs po every day x3d, then 1 tab po qd x3d, then off Oxycodone HCL as directed Andra Barnett - 10mg ENTRY LEVEL CIVIL ENGINEER 09/24/2018 Tablets Prednisolone Sodium Take 13.3 ML By Unknown - Phosphate Mouth Once Daily 09/24/2018 15mg/5ML For 4 Days Solution Sucralfate Take One Tablet Unknown - 1gm By Mouth Four 09/24/2018 Tablets Times A Day May Crush Tablet And Put In Food Or Drink Vital Signs Date Vital Result Comment 09/25/2018 10:22am Weight 216.00 lb Weight 97.978 kg Height 72 inches 6'0" Height in cm's 182.9 cm BMI (Body Mass Index) 29.3 kg/m2 09/15/2018 10:31am BP Systolic 145 mmHg BP Diastolic 98 mmHg Heart Rate 96 /min Respiratory Rate 18 /min Weight 216.00 lb Weight 97.978 kg Height 72 inches 6'0" Height in cm's 182.9 cm BMI (Body Mass Index) 29.3 kg/m2 07/31/2018 3:42pm Weight 226.00 lb Weight 102.514 kg Height 72 inches 6'0" Height in cm's 182.9 cm BMI (Body Mass Index) 30.6 kg/m2 07/24/2018 9:16am BP Systolic 180 mmHg BP Diastolic 120 mmHg Heart Rate 89 /min Respiratory Rate 17 /min Weight 226.00 lb Weight 102.514 kg Height 72 inches 6'0" Height in cm's 182.9 cm BMI (Body Mass Index) 30.6 kg/m2 07/07/2018 10:55am Weight 226.00 lb Weight 102.514 kg Height 72 inches 6'0" Height in cm's 182.9 cm BMI (Body Mass Index) 30.6 kg/m2 Results Test Date Facility Test Result H/L Range Note Laboratory test 09/20/2018 [facility] Surgical SEE RESULT 1 finding c/o [facility] of [place] [address] [phone] 1 SEE RESULT BELOW Name: CARMELO CHANG : [address]: Neymar Corrigan MD Acct: [id number] Unit: [id number] AGE: 48 Location: OR Re09/20/18 SEX: M Status: [facility] SPEC: [id number] JAMES: 09/20/18- SUBM DR: Neymar Corrigan MD REQ: [id number] RECD: 09/20/18120 STATUS: SOUT _ ORDERED: LEVEL 4/2, IMMUNO-FIRST ADDENDUM A p16 immunohistochemical stain, with appropriately reacting controls, is positive in a patchy nuclear and cytoplasmic pattern, supporting the previously rendered diagnosis. Addendum Signed (signature on file) Thania Garcia MD 1121 FINAL DIAGNOSIS 1. Right sinus contents: -- Squamous papilloma (inverted-type), fragmented, see comment. -- Benign respiratory mucosal fragments. -- No evidence of malignancy identified. 2. Left sinus contents: --Benign respiratory mucosal fragments and bone. 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 The completeness of the resection cannot be ascertained based on the fragmented nature of the specimen. Appropriate correlation with surgical findings as well as clinical follow-up is recommended. An immunohistochemical stain for p16 (HPV surrogate marker) is pending on part 1 and will be reported in an addendum. Dr. Garcia has reviewed this case and concurs. CONTINUED ON NEXT PAGE DEPARTMENT OF PATHOLOGY, [address] [place] [address] Erik Sierra M.D. Director GABRIELLE # [id number] RUN DATE: 09/22/18 [facility] LAB LIVE PAGE 2 Patient: CARMELO CHANG [id number] (Continued) PRE-OPERATIVE DIAGNOSIS (Continued) PRE-OPERATIVE DIAGNOSIS Chronic sinusitis GROSS DESCRIPTION 1. The specimen is received in formalin labeled, Right Sinus Contents, and consists of a 5.3 x 4.5 x 0.8 cm aggregate of gaston-white irregular soft tissue fragments admixed with red-brown blood clot and gaston-red aerated material. Revenue Accountant sections, two cassettes. 2. The specimen is received in formalin labeled, Left Sinus Contents, and consists of a 2.6 x 1.9 x 0.4 cm aggregate of gaston-pink irregular soft tissue fragments admixed with red-brown blood clot and scant aerated material. Revenue Accountant sections, one cassette. Signed by and Reported on: Erik Sierra MD 1350 END OF REPORT DEPARTMENT OF PATHOLOGY, [address] [place] [address] Erik Sierra M.D. Director [facility] # [id number] Procedures Date Code Description Status 09/20/2018 14605 Nasal Endoscopy W/Maxllary Antrostomy W/Excision Of Poylp Completed 09/20/2018 41330 Nasal Endoscopy/Ethmoidectomy, Total Completed Encounters Type Date Location Provider Dx Diagnosis Office Visit 09/25/2018 [place] Pj Corrigan J33.9 Nasal polyp, 10:00a 04/25/07 unspecified J32.9 Chronic sinusitis, unspecified Office Visit 09/15/2018 [place] Pj Corrigan J33.9 Nasal polyp, 10:15a 04/25/07 unspecified J32.9 Chronic sinusitis, unspecified Office Visit 07/31/2018 3:00p [place] 04/25/07 Danna Claudio J34.3 Hypertrophy of PEGGY Rodas nasal turbinates J32.9 Chronic sinusitis, unspecified J33.9 Nasal polyp, unspecified Office Visit 07/24/2018 [place] Pj Corrigan J34.3 Hypertrophy of 9:00a 04/25/07 nasal turbinates J32.9 Chronic sinusitis, unspecified J33.9 Nasal polyp, unspecified Office Visit 07/07/2018 10:30a [place] 04/25/07 Pj Corrigan J34.2 Deviated nasal MD septum J31.0 Chronic rhinitis J34.3 Hypertrophy of nasal turbinates J32.9 Chronic sinusitis, unspecified J33.9 Nasal polyp, unspecified Plan of Treatment Future Appointment(s):11/06/2018 10:00 am - Pj Corrigan MD at [place] - Pj Corrigan MDJ33.9 Nasal polyp, lroeorrkazuB44.9 Chronic sinusitis, unspecifiedComments: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 With this in mind I advised the patient to start nasal irrigations, I would like to reevaluate this patient back in 6 weeksfor endoscopy. Serial follow-up. An MRI in the future to gauge better extent of the tumor. Whether additional resection will be necessary
--- OUTSIDE RECORDS SUMMARY | 2018-10-11 07:27 | XMS REPORT | Continuity of Care Document ---
:1970 External Reference #:[id number] Author Name Pj Corrigan MD Address [address] [place] [address] Care Team Providers Name Role Phone Julian LANE, Sophia Care Team Information Clerical Specialist Unavailable Lona FRONT END DRIVER, Agus Primary Care Physician Unavailable Payers Date Identification Numbers Payment Provider Subscriber Effective: 2018 Policy Number: [id number] [facility] Carmelo Chang PayID: [id number] [address] [place] [address] Problems Active Problems Provider Date Essential hypertension Pj Corrigan MD Onset: 07/07/2018 Family History Date Family Member(s) Observation Comments General Allergies General Asthma General Diabetes General Hearing Loss General Heart Attack General Heart Disease General Migraine General Vertigo Social History Type Date Description Comments Sex Unknown Occupation [employer] Tobacco Use Start: Unknown Current Cigarette [...] Unknown 25mg Tablets By Mouth Every Day Oxycodone HCL as directed Anibal 10mg Tablets Andra KRUGER Famotidine Unknown 40mg/5ML Suspension Rec Prednisolone Sodium Take 13.3 ML By Unknown Phosphate Mouth Once 15mg/5ML Solution Daily For 4 Days Sucralfate Take One Tablet Unknown 1gm Tablets By Mouth Four Times A Day May Crush Tablet And Put In Food Or Drink Atenolol Lona FRONT END DRIVER, Agus 50mg Tablets History Medications Augmentin take 1 tab 2 20tabs J33.9 Pj Corrigan MD 07/31/2018 - 875-125mg times a day 09/15/2018 Tablets for 10 days Prednisone 4 tabs po 21tabs J33.9 Pj Corrigan MD 07/31/2018 - 10mg every day x3 09/15/2018 Tablets d, then 2 tabs po every day x3d, then 1 tab po qd x3d, then off Vital Signs Date Vital Result Comment 09/15/2018 10:31am BP Systolic 145 mmHg BP [...] cm BMI (Body Mass Index) 30.6 kg/m2 Encounters Type Date Location Provider Dx Diagnosis Office Visit 09/15/2018 Jeannine Benavides Ashu J33.9 Nasal polyp, 10:15a 04/25/07 unspecified J32.9 Chronic sinusitis, unspecified Office Visit 07/31/2018 3:[place]p [place] 04[place]/07 Danna [place]. J34.3 Hypertrophy of PEGGY Rodas nasal turbinates J32.9 Chronic sinusitis, unspecified J33.9 Nasal polyp, unspecified Office Visit 07/24/2018 [place] Pj Corrigan J34.3 Hypertrophy of 9:00a 04/25/07 nasal turbinates J32.9 Chronic sinusitis, unspecified J33.9 Nasal polyp, unspecified Office Visit 07/07/2018 10:30a [place] 04/25/07 Pj Corrigan J34.2 Deviated nasal MD septum J31.0 Chronic rhinitis J34.3 Hypertrophy of nasal turbinates J32.9 Chronic sinusitis, unspecified J33.9 Nasal polyp, unspecified Plan of Treatment Future Appointment(s):09/25/2018 10:00 am - Pj Corrigan MD at [place] 8:45 am - Pj Corrigan MD at [facility] O 09/15/2018 - Pj Corrigan MDJ33.9 Nasal polyp, vrnjtqralkqZ35.9 Chronic sinusitis, unspecifiedComments:Options of treatment including endoscopic sinus surgery was discussed. Medical alternatives were also discussed Risks and complications of sinus surgery including risks to the orbit, orbital structurespossibility of blindness was discussed, risk of injury to the skull base with the possibility of CSFleak was also discussed. Other complications include recurrence of disease , scar formation with difficulty breathing through the nose and nasal difficulty with bleeding were also outlined. patient is scheduled for bilateral video endoscopic maxillary antrostomy and removal of nasal polyps. Bilateral anterior ethmoidectomy
--- OUTSIDE RECORDS SUMMARY | 2018-10-11 07:27 | XMS REPORT | Continuity of Care Document ---
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 Family History Date Family Member(s) Observation Comments General Heart Disease General Hypertension General Stroke Father liver failure r/t Etoh Mother Heart Disease Social History Type Date Description Comments Sex Unknown Marital Status Single Lives With Spouse Occupation Currently Working [employer] Work Status Currently Working Hand Dominance Right-handed Tobacco Use Start: Unknown Light tobacco smoker (10 or fewer cigarettes/day) Smoking Status Reviewed: 10/06/18 Light tobacco smoker (10 or fewer cigarettes/day) [...] Medications SIG Qnty Indications Ordering Date Provider Nicotine Step 3 apply the patch 28units F17.210 [facility], 7mg/24HR once a day MD Prince Patches 24HR Nicotrol 1 cartridges 168units F17.210 [facility], 10mg Inhaler every 2 hours as MD 9 needed Amoxicillin/Clavulanate 1 by mouth twice 20tabs J01.90 [facility], Potassium a day MD Prince 875-125mg Tablets Tums Once Unknown 500mg Chewtabs 9 Potassium Every Day Unknown 99mg Tablets 9 Prednisolone Sodium Every Day 32units Unknown Phosphate 9 25mg/5ML Solution Carafate Four Times Daily 280units Unknown 1GM/10ML Suspension 9 Atarax Four Times Daily 20tabs Unknown 25mg Tablets 9 Deltasone Every Day 10tabs Unknown 20mg Tablets 9 Pepcid ac Maximum Every Day 5tabs Unknown Strength 9 20mg Tablets Epipen 2-Kelton Once 1units Unknown 0.3mg/0.3ML 9 Solution Auto-Inject Hydrochlorothiazide take one tablet 30tabs I10 [facility], 25mg by mouth every MD 9 Tablets day Potassium Chloride Mahi take one tablet 42tabs [facility], ER twice a day for MD 9 20Meq Tablets ER 5 days; then one tablet daily Atenolol Take One Tablet 30tabs [facility], 50mg Tablets By Mouth Every MD 9 Day Ra Nicotine Gum chew and tuck in 100units F17.210 Agus Zamorano NP 2mg Gum gum one piece 9 every two hours as needed. Tizanidine HCL take one tablet 60tabs M47.27 Agus Zamorano NP 4mg Tablets by mouth three 9 times daily as needed Blood Pressure Monitor check bp twice 1units I10 Agus Zamorano NP Auto Inflate weekly at home 9 Misc Fluticasone Propionate 2 sprays each 16gm J01.90 Sophia Jordan, nostril twice a MD 9 50mcg/Act Suspension day for 7 days, then once at bedtime Oxycodone-Acetaminophen 1-2 tabs by 56tabs M51.16 Agus Zamorano NP 5-325mg mouth every 12 8 Tablets hours as needed for pain Knee Brace/Hinged Bars XL wear on left M25.561 Agus Zamorano NP Mis knee durign the 7 day Amlodipine Besylate take one tablet 30tabs Sophia Jordan, 00/000 10mg by mouth every MD 0 Tablets day History Medications Chlorthalidone 08/21/18 reports 30tabs I10 Agus Zamorano NP 08/03/2018 - 50mg Tablets not taking 1 by 08/22/2018 mouth every day Tamiflu 1 by mouth 10caps J06.9 Sarah Varn, 06/02/2018 - 75mg Capsules twice daily for [...] 08/03/2018 Capsules Morning And AT Bedtime M50.122 Naproxen 1 tablet with 30tabs M51.16 Agus Zamorano NP 08/09/2017 - 500mg food by mouth 06/12/2018 Tablets twice a day Baclofen take 1/2 tab 30tabs M50.122 Agus Zamorano NP 08/09/2017 - 10mg every 8 hours as 03/14/2018 Tablets needed for muscle spasm M51.16 Hydrocodone-Acetaminophen take 1 tablets 20tabs M23.306 [facility] 05/20/2017 - 7.5-325mg every 6 hours as MD Edgar 08/09/2017 Tablets needed for post op pain. Hydrocodone-Acetaminophen take 1-2 tablets 42tabs M23.306 Agus Zamorano, - 5-325mg every 8 hours for ORTHOPAEDIC DOCTOR 05/20/2017 Tablets pain. Meloxicam 1 -2 tablet by 60tabs M25.561 Agus Zamorano, 03/09/2017 - 7.5mg Tablets mouth once daily ORTHOPAEDIC DOCTOR 08/09/2017 as needed Knee Sleeve/Open wear on right knee 1units M25.561 Agus Zamorano, 03/09/2017 - Patella/Medium/Neoprene as needed. ORTHOPAEDIC DOCTOR 04/11/2017 Misc Gabapentin Take One Capsule 60caps R20.8 Agus Zamorano, 02/03/2017 - 300mg Capsules By Mouth In The ORTHOPAEDIC DOCTOR 08/09/2017 Morning And AT Bedtime Gabapentin take 3 caps in the 60caps R20.8 Agus Zamorano, 01/14/2017 - 100mg Capsules morning and every ORTHOPAEDIC DOCTOR 02/03/2017 night at bedtime Lisinopril 1 by mouth every 30tabs Agus Zamorano, 01/06/2017 - 10mg Tablets day ORTHOPAEDIC DOCTOR 01/06/2017 Hydrochlorothiazide take one tablet by 30tabs I10 Sophia Jordan, - 25mg Tablets mouth every day 08/03/2018 Nifedipine ER Osmotic Take One Tablet By Unknown - Release Mouth Every Day 01/06/2017 30mg Tablets ER 24HR Cyclobenzaprine HCL Unknown - 10mg Tablets 12/22/2016 Epinephrine Inject Unknown - 0.3mg/0.3ML Solution Intramuscularly 03/14/2018 Auto-Inject Two Times A Day Acamprosate Calcium 2 pills three Unknown - 333mg Tablets DR times daily 03/09/2017 Folic Acid 1 daily Unknown - 1mg Tablets 03/09/2017 Vitamin B-1 daily Unknown - 100mg Tablets 03/09/2017 Clindamycin HCL Unknown - 300mg Capsules 05/11/2017 Amoxicillin/Clavulanate 1 po bid Unknown - Potassium 03/14/2018 875-125mg Tablets Voltaren apply as needed Unknown - Cream for pain 08/16/2018 Medications Administered in Office Medication SIG Qnty Indications Ordering Provider Date Triamcinolone (Kenalog) Giuseppe Hernández MD 04/26/2017 Injection Vital Signs Date Vital Result Comment 10/06/2018 3:52pm Height 72 inches 6'0" Weight 220.00 lb Heart Rate 72 /min BP Systolic Sitting 117 mmHg BP Diastolic Sitting 79 mmHg Body Temperature 97.0 F O2 % BldC Oximetry 97 % BMI (Body Mass Index) 29.8 kg/m2 09/04/2018 2:10pm Height 72 inches 6'0" Weight [...] Result H/L Range Note Laboratory test 09/20/2018 [facility] Surgical SEE RESULT [address] [place] [address] [phone] Basic Metabolic 09/04/2018 [facility] Sodium 141 mmol/L N 135- [address] [place] [address] [phone] Potassium 4.0 mmol/L N 3.5-5.0 Chloride 107 mmol/L N 101-111 Co2 Carbon Dioxide 26 mmol/L N 22-32 Anion Gap 8 mmol/L N 2-11 Glucose 94 mg/dL N 70-100 Blood Urea Nitrogen 12 mg/dL N 6-24 Creatinine 0.95 mg/dL N 0.67-1.17 BUN/Creatinine Ratio 12.6 N 8-20 Calcium 9.8 mg/dL N 8.6-10.3 Egfr Non- 85.3 >60 Egfr 103.3 >60 2 Laboratory test 08/21/2018 [facility] Calcium 10.3 mg/dL N 8.6 -10.[address] [place] [address] [phone] Basic Metabolic 08/21/2018 [facility] Sodium 142 mmol/L N 135- [address] [place] [address] [phone] Potassium 3.1 mmol/L Low 3.5-5.0 Chloride 101 mmol/L N 101-111 Co2 Carbon Dioxide 30 mmol/L N 22-32 Anion Gap 11 mmol/L N 2-11 Glucose 99 mg/dL N 70-100 Blood Urea Nitrogen 19 mg/dL N 6-24 Creatinine 1.12 mg/dL N 0.67-1.17 BUN/Creatinine Ratio 17.0 N 8-20 Egfr Non- 70.6 >60 Egfr 85.4 >60 3 CBC Auto Diff 08/17/2018 [facility] White Blood 8.0 10^3/uL N 3.5-10.[address] [place] [address] [phone] Red Blood Count 4.63 10^6/uL N 4.18-5.48 [...] Cells % 0.1 Comp Metabolic Panel 08/17/2018 [facility] Sodium 139 mmol/L N 135-[address] [place] [address] [phone] Chloride 95 mmol/L Low 101-111 Co2 Carbon [...] Egfr Non- 69.2 >60 Egfr 83.7 >60 4 Potassium 2.7 mmol/L Low 3.5-5.0 5 Anion Gap 12 mmol/L High 2-11 Laboratory test 08/17/2018 [facility] TSH (Thyroid 1.62 mcIU/mL N 0.34-5.[address] Stim [place]orm) [place] [address] [phone] Laboratory test 06/02/2018 [employer] In House Influenza A/B negative finding Rapid Drug Abuse 20 09/26/2017 [facility] Urine Negative [address] Amphetamine ng/[place] [address] [phone] Urine Barbiturates Negative ng/mL 7 Urine Benzodiazepines Negative ng/mL 8 Urine Cocaine Negative ng/mL 9 Urine Phencyclidine Negative ng/mL Cutoff: 25 Urine Tetrahydrocannabinol Presumptive Posi <SEE NOTE> Abnormal Cutoff: 50 10 ng/mL Creatinine, Urine 237.2 mg/dL Specific [place] 1.017 pH 6.7 Oxidants Negative 11 Adulterants Comment Normal Codeine, Ur Not Detected ng/mL Cutoff: 25 12 Iwsgdpl-3-rpoy-glucuronide, Ur Not Detected ng/mL 13 Morphine, Ur Not Detected ng/mL Cutoff: 25 14 Wxpzelzx-1-spox-glucuronide, U Not Detected ng/mL 15 6-monoacetylmorphine, Ur Not Detected ng/mL Cutoff: 25 16 Hydrocodone, Ur Not Detected ng/mL Cutoff: 25 17 Norhydrocodone, Ur Not Detected ng/mL Cutoff: 25 18 Dihydrocodeine, Ur Not Detected ng/mL Cutoff: 25 19 Hydromorphone, Ur Not Detected ng/mL Cutoff: 25 20 Lextuppxjqjck4bjwkrmiruorftta Not Detected ng/mL 21 Oxycodone, Ur Present ng/mL Abnormal Cutoff: 25 22 Noroxycodone, Ur Present ng/mL Abnormal Cutoff: 25 23 Oxymorphone, Ur Not Detected ng/mL Cutoff: 25 24 Rcjktgscolo-7-exma-glucuronide Present ng/mL Abnormal 25 Noroxymorphone, Ur Not Detected ng/mL Cutoff: 25 26 Fentanyl, Ur Not Detected ng/mL Cutoff: 2 27 Norfentanyl, Ur Not Detected ng/mL Cutoff: 2 28 Meperidine, Ur Not Detected ng/mL Cutoff: 25 29 Normeperidine, Ur Not Detected ng/mL Cutoff: 25 30 Naloxone, Ur Not Detected ng/mL Cutoff: 25 31 Gshhvjsi-7-wssg-glucuronide, U Not Detected ng/mL 32 Methadone, Ur Not Detected ng/mL Cutoff: 25 33 Eddp, Ur Not Detected ng/mL Cutoff: 25 34 Propoxyphene, Ur Not Detected ng/mL Cutoff: 25 35 Norpropoxyphene, Ur Not Detected ng/mL Cutoff: 25 36 Tramadol, Ur Not Detected ng/mL Cutoff: 25 37 O-desmethyltramadol, Ur Not Detected ng/mL Cutoff: 25 38 Tapentadol, Ur Not Detected ng/mL Cutoff: 25 39 N-desmethyltapentadol, Ur Not Detected ng/mL Cutoff: 50 40 Obbvkrqjww-krmd-wdirgsleujh, U Not Detected ng/mL 41 Buprenorphine, Ur Not Detected ng/mL Cutoff: 5 42 Norbuprenorphine, Ur Not Detected ng/mL Cutoff: 5 43 Norbuprenorphine glucuronide Not Detected ng/mL Cutoff: 20 44 Opioid Interpretation See Comment 45 THC Confirmation 09/26/2017 [facility] Urine Carboxy 121 ng/mL [address] THC Confirm [place], [place] [id number] [phone] Urine THC Interpretation Positive. 47 Drug Abuse 08/09/2017 [facility] Urine Amphetamine Negative ng/ mL 48, 49 [address] [place] [address] [phone] Urine Barbiturates Negative ng/mL 50 Urine Benzodiazepines Negative ng/mL 51 Urine Cocaine Negative ng/mL 52 Urine Phencyclidine Negative ng/mL Cutoff: 25 Urine Tetrahydrocannabinol Presumptive Posi <SEE NOTE> Abnormal Cutoff: 50 53 ng/mL Creatinine, Urine 204.2 mg/dL Specific [place] 1.018 pH 5.6 Oxidants Negative 54 Adulterants Comment Normal Codeine, Ur Not Detected ng/mL Cutoff: 25 55 Ssdzpoi-8-dexj-glucuronide, Ur Not Detected ng/mL 56 Morphine, Ur Not Detected ng/mL Cutoff: 25 57 Ydmoctut-7-bnwv-glucuronide, U Not Detected ng/mL 58 6-monoacetylmorphine, Ur Not Detected ng/mL Cutoff: 25 59 Hydrocodone, Ur Present ng/mL Abnormal Cutoff: 25 60 Norhydrocodone, Ur Not Detected ng/mL Cutoff: 25 61 Dihydrocodeine, Ur Not Detected ng/mL Cutoff: 25 62 Hydromorphone, Ur Not Detected ng/mL Cutoff: 25 63 Qfqoydeiktfyp4cqlvzcewlyblenl Not Detected ng/mL 64 Oxycodone, Ur Not Detected ng/mL Cutoff: 25 65 Noroxycodone, Ur Present ng/mL Abnormal Cutoff: 25 66 Oxymorphone, Ur Not Detected ng/mL Cutoff: 25 67 Uayggwtgdwb-5-wxzg-glucuronide Not Detected ng/mL 68 Noroxymorphone, Ur Not Detected ng/mL Cutoff: 25 69 Fentanyl, Ur Not Detected ng/mL Cutoff: 2 70 Norfentanyl, Ur Not Detected ng/mL Cutoff: 2 71 Meperidine, Ur Not Detected ng/mL Cutoff: 25 72 Normeperidine, Ur Not Detected ng/mL Cutoff: 25 73 Naloxone, Ur Not Detected ng/mL Cutoff: 25 74 Obezblkb-9-vihq-glucuronide, U Not Detected ng/mL 75 Methadone, Ur [...] Ur Not Detected ng/mL Cutoff: 50 83 Itlmjimarb-xkjq-jekrxdjutou, U Not Detected ng/mL 84 Buprenorphine, Ur Not Detected ng/mL Cutoff: 5 85 Norbuprenorphine, Ur Not Detected ng/mL Cutoff: 5 86 Norbuprenorphine glucuronide Not Detected ng/mL Cutoff: 20 87 Opioid Interpretation See Comment 88 THC Confirmation 08/09/2017 [facility] Urine Carboxy 125 ng/mL [address] [place] [address] [phone] Urine THC Interpretation Positive. 90 CBC Auto Diff 02/03/2017 [facility] White Blood 6.7 10^3/uL N 3.5-10.[address] [place] [address] [phone] Red Blood Count 4.35 10^6/uL N 4.0-5.4 [...] Cells % 0.1 N Laboratory test 02/03/2017 [facility] C Reactive 1.70 mg/L N < 5.[address] [place] [address] [phone] Erythrocyte Sed Rate 11 mm/Hr N 0-14 Laboratory test 02/02/2017 [facility] Rheumatoid <15 IU/mL N < [address] [place] [address] [phone] Comp Metabolic 02/02/2017 [facility] Sodium 139 mmol/L N 133- [address] [place] [address] [phone] Potassium 3.7 mmol/L N 3.5-5.0 Chloride 104 [...] 75.1 N >60 Egfr 96.6 N >60 93 CBC Auto Diff 12/23/2016 [facility] White Blood 6.0 10^3/uL N 3.5-10.[address] [place] [address] [phone] Red Blood Count 4.67 10^6/uL N 4.0-5.4 [...] % 0.7 N Comp Metabolic Panel 12/23/2016 [facility] Sodium 140 mmol/L N 133-[address] [place] [id number] [phone] Potassium 3.5 mmol/L N 3.5-5.0 Chloride 102 [...] 73.5 N >60 Egfr 94.5 N >60 95 Laboratory test 12/23/2016 [facility] TSH (Thyroid 1.79 mcIU/mL N 0.34-5.60 [address] Stim [place]orm) [place] [address] [phone] Vitamin B12 392 pg/mL N 180-914 97 Lyme Disease Serology Negative N Negative 98 C Reactive Protein 2.20 mg/L N < 5.00 99 Erythrocyte Sed Rate 12 mm/Hr N 0-14 100 Lipid Profile 12/23/2016 [facility] Triglycerides 312 mg/dL N 101 (Trig/Chol/HDL) [address] [place] [address] [phone] Cholesterol 253 mg/dL N 102 HDL Cholesterol 57.9 mg/dL N 103 LDL Cholesterol 133 mg/dL N 104 Laboratory test 12/23/2016 [facility] Rheumatoid 16 IU/mL Abnormal <15 105 finding [address] [place] [address] [phone] Connective 12/23/2016 [facility] Anti-Nuclear 0.2 U N 106 Tissue Panel [address] [place] [address] [phone] Cyclic Citrullinated Peptide <15.6 U N 107 Interpretation See Comment N 108 1 SEE RESULT BELOW Name: DAYANA CHANG : [address]: Neymar Corrigan MD Acct: [id number] Unit: [id number] AGE: 48 Location: OR Re09/20/18 SEX: M Status: JIMMY DONOVAN SPEC: [id number] JAMES: 09/20/18- SUBM DR: Neymar Corrigan MD REQ: [id number] RECD: 09/20/181203 STATUS: SOUT _ ORDERED: LEVEL 4/2, IMMUNO-FIRST [...] CONTINUED ON NEXT PAGE DEPARTMENT OF PATHOLOGY, [address] [place] [address] Erik Sierra M.D. Director [facility] # [id number] RUN DATE: 09/22/18 [facility] LAB LIVE PAGE 2 Patient: DAYANA CHANG [id number] (Continued) PRE-OPERATIVE DIAGNOSIS (Continued) PRE-OPERATIVE DIAGNOSIS Chronic sinusitis GROSS DESCRIPTION 1. The specimen is received in formalin labeled, Right Sinus Contents, and consists of a 5.3 x 4.5 x 0.8 cm aggregate of gaston-white irregular soft tissue fragments admixed with red-brown blood clot and gaston-red aerated material. [employer] Operator sections, two cassettes. 2. The specimen is received in formalin labeled, Left Sinus Contents, and consists of a 2.6 x 1.9 x 0.4 cm aggregate of gaston-pink irregular soft tissue fragments admixed with red-brown blood clot and scant aerated material. [employer] Operator sections, one cassette. Signed by and Reported on: Erik Sierra MD 1350 END OF REPORT DEPARTMENT OF PATHOLOGY, [address], [place], [place] [address] Erik Sierra M.D. Director [facility] # [id number] 2 Because ethnic data is not always [...] 5 Kidney failure <15 (or dialysis) 3 Because ethnic data is not always [...] 5 Kidney failure <15 (or dialysis) 4 Because ethnic data is not always readily [...] 15-29 5 Kidney failure <15 (or dialysis) [address] BARTON by [id number] at 1921 on 08/17/18. Results read back accurately. 6 REFERENCE VALUE Cutoff: 500 7 REFERENCE VALUE Cutoff: 200 8 REFERENCE VALUE Cutoff: 100 9 REFERENCE VALUE Cutoff: 150 10 Presumptive Positive Drug confirmation to follow. Presumptive Positive means that the screening method is positive, but the test needs to be run by a confirmatory method before being finalized. ADDITIONAL INFORMATION This report is intended for use in clinical monitoring or management of patients. It is not intended for use in employment-related testing. 11 REFERENCE VALUE Cutoff: 200 mg/L 12 Tylenol 3 13 Metabolite of codeine REFERENCE VALUE Cutoff: 100 14 Deborah Vallejo, Contin; Also a minor metabolite (10%) of codeine and can be seen in low concentrations (<2,000 ng/mL) with poppy seed ingestion. 15 Metabolite of morphine REFERENCE VALUE Cutoff: 100 16 Metabolite of heroin 17 Lortab, Boyce, Vicodin; Also a very minor metabolite of codeine and impurity (<1%) of oxycodone. 18 Metabolite of hydrocodone 19 Metabolite of hydrocodone 20 Dilaudid, Exalgo; Also a metabolite of hydrocodone and a minor (<5%) metabolite of morphine. 21 Metabolite of hydromorphone REFERENCE VALUE Cutoff: 100 22 Endocet, Percocet, Oxycontin 23 Metabolite of oxycodone 24 Numorphan, Opana; Also a metabolite of oxycodone. 25 Metabolite of oxymorphone REFERENCE VALUE Cutoff: 100 26 Metabolite of oxymorphone 27 Actiq, Duragesic, Fentora 28 Metabolite of fentanyl 29 Demerol 30 Metabolite of meperidine 31 Narcan 32 Metabolite of naloxone REFERENCE VALUE Cutoff: 100 33 Dolophine 34 Metabolite of methadone 35 Darvon, Darvocet 36 Metabolite of propoxyphene 37 Tradol, Ultram, Ultracet 38 Metabolite of tramadol 39 Nucynta 40 Metabolite of tapentadol 41 Metabolite of tapentadol REFERENCE VALUE Cutoff: 100 42 Buprenex, Suboxone 43 Metabolite of buprenorphine 44 Metabolite of buprenorphine 45 Test detected the presence of oxycodone and one of its metabolites (noroxycodone) along with dxlaweihodp-8-dlsr-glucuronide (metabolite of oxymorphone). Suspect use of oxycodone and oxymorphone within the past three days. ADDITIONAL INFORMATION This test was developed and its performance characteristics determined by [facility] in a manner consistent with CLIA requirements. This test has not been cleared or approved by the U.S. Food and Drug Administration. Test Performed by: [facility] - [facility] [address] [place] [id number] REFERENCE VALUE Cutoff: 3.0 47 ADDITIONAL INFORMATION This report is intended for use in clinical monitoring and management of patients. It is not intended for use in employment-related testing. This test was developed and its performance characteristics determined by [facility] in a manner consistent with CLIA requirements. This test has not been cleared or approved by the U.S. Food and Drug Administration. Test Performed by: [facility] [address] [place] [id number] [id number] REFERENCE VALUE Cutoff: 500 50 REFERENCE [...] codeine REFERENCE VALUE Cutoff: 100 57 Deborah Vallejo MS Contin; Also a minor metabolite (10%) of codeine and can be seen in low concentrations (<2,000 ng/mL) with poppy seed ingestion. 58 Metabolite of morphine REFERENCE VALUE Cutoff: 100 59 Metabolite of heroin 60 Lortab, Boyce, Vicodin; Also a very minor metabolite of [...] developed and its performance characteristics determined by [facility] in a manner consistent with CLIA requirements. This test has not been cleared or approved by the U.S. Food and Drug Administration. Test Performed by: [facility] [place] [id number] [place] [address] 89 REFERENCE VALUE Cutoff: 3.0 90 ADDITIONAL INFORMATION This report is intended for use in clinical monitoring and management of patients. It is not intended for use in employment-related testing. This test was developed and its performance characteristics determined by [facility] in a manner consistent with CLIA requirements. This test has not been cleared or approved by the U.S. Food and Drug Administration. Test Performed by: [facility] - [address] [address] 91 Acute inflammation: >10.00 92 Test Performed by: [facility] - [address] [address] 93 Because ethnic data is not always readily [...] 15-29 5 Kidney failure <15 (or dialysis) 94 PT IS FASTING 95 Because ethnic data is not always readily [...] 15-29 5 Kidney failure <15 (or dialysis) 96 PT IS FASTING 97 Normal Range 180 to 914 Indeterminate Range 145 to 180 Deficient Range <145 98 Serologic response to B. burgdorferi infection is not detected, but cannot rule out early infection during which low or undetectable antibody levels to B. burgdorferi may be present. If clinically indicated, a new serum specimen should be submitted in 7-14 days. Test Performed by: [address] [address] 99 Acute inflammation: >10.00 10 PT IS FASTING 0 10 Desirable <150 1 Borderline high 150-199 High 200-499 Very High >500 10 Desirable <200 2 Borderline high 200-239 High >239 10 Low <40 3 Desirable: 40-60 High: >60 10 Desirable: <100 mg/dL 4 Near Optimal: 100-129 mg/dL Borderline High: 130-159 mg/dL High: 160-189 mg/dL Very High: >189 mg/dL 10 Test Performed by: [address] [address] 10 REFERENCE VALUE 6 <=1.0 (Negative) 10 REFERENCE VALUE 7 <20.0 (Negative) 10 Tests for antibodies to dsDNA and JANNY antigens are not 8 performed automatically unless the PUNEET result is > or= 3.0 U. Studies performed at [facility] indicate that positive PUNEET results <3.0 U are rarely accompanied by positive second order tests. Test Performed by: [facility] - [address] [address] Procedures Date Code Description Status 09/04/2018 37984 EKG Tracing & Interpretation Completed 06/16/2017 23693 Arthroscopy,Knee,Meniscectomy Medial Or Lateral Completed 06/16/2017 01669 Arthroscopy,Knee,Meniscectomy Medial Or Lateral Completed 04/26/2017 82437 Polysomnography Sleep Staging 4+ Parameters Completed 04/26/2017 16094 Inject/Drain Joint/Bursa Major W/O US Completed 01/03/2017 39863 Stress Test Completed Encounters Type Date Location Provider Dx Diagnosis Office Visit 09/04/2018 [facility] Helen Barton MD Z01.818 Encounter for other 2:00p Medicine - [facility] preprocedural examination J34.2 Deviated nasal septum J33.9 Nasal polyp, unspecified E87.6 Hypokalemia I10 Essential (primary) hypertension G47.33 Obstructive sleep apnea (adult) (pediatric) F17.210 Nicotine dependence, cigarettes, uncomplicated Office Visit 08/21/2018 3:40p [facility] Helen Barton, I10 Essential ( primary) Medicine - [address] hypertension E87.6 Hypokalemia Office Visit 08/17/2018 3:40p [facility] Helen Barton I10 [facility] ( [facility] R63.4 Abnormal weight loss Office Visit 08/03/2018 9:20a [facility] Agus Zamorano, F17.210 Nicotine dependence, Medicine - ORTHOPAEDIC DOCTOR cigarettes, [facility] uncomplicated I10 Essential (primary) hypertension M47.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 respiratory infection, unspecified Office 05/01/2018 [facility] M47.27 Other Visit 3:00p Of Sherrie Rivera MD spondylosis with radiculopathy, lumbosacral region M48.07 Spinal stenosis, lumbosacral region M50.122 Cervical disc disorder at C5-C6 level with radiculopathy Z72.0 Tobacco use Office Visit 04/13/2018 [place] Jose M47.27 Other spondylosis 8:30a Neurologic Viry Ledezma with radiculopathy, Services Of [facility] lumbosacral region M48.07 Spinal stenosis, lumbosacral region [...] stenosis, lumbosacral region Office Visit 08/18/2017 11:40a [facility] Internal Agus Zamorano M50.122 Cervical disc Medicine - ORTHOPAEDIC DOCTOR disorder at C5-C6 C[facility] level with radiculopathy F10.10 Alcohol abuse, uncomplicated Office Visit 08/09/2017 [facility] Internal Agus Zamorano ORTHOPAEDIC DOCTOR M51.16 Intervertebral disc 10:40a Medicine - [facility] disorders w radiculopathy, lumbar region Office Visit 07/06/2017 Neurosurgery Vassilios M50.222 Other cervical disc 9:30a Services Of Sherrie Rivera MD displacement at C5-C6 level M50.223 Other cervical disc displacement at C6-C7 level Office Visit 06/15/2017 Pulmonology And Lidia G47.33 Obstructive 8:15a Sleep Services Of TIN Bernstein, RN, sleep apnea [facility] [employer] COUNTER PERSON-BC (adult) (pediatric) Office Visit 05/30/2017 Orthopedic [facility] Edgar, S83.31xA Tear of 2:30p Services Of articular [...] level with radiculopathy Office Visit 04/26/2017 Orthopedic [facility] Edgar, M23.306 Other meniscus 8:15a Services Of MD altman, unsp C.M.A. meniscus, right knee M25.461 Effusion, right knee M76.51 Patellar tendinitis, right knee Office Visit 04/11/2017 4:20p [facility] Internal Agusyenny Zamorano, M23.306 Other meniscus [facility] derangements, unsp meniscus, right knee Office Visit 04/06/2017 1:00p [facility] M23.306 Other meniscus Services Of agapito Hernández, unsp C.M.A. meniscus, right knee M25.461 Effusion, right knee M25.561 Pain in right knee Office Visit 03/15/2017 Neurosurgery Vassilios M50.222 Other cervical 10:30a Services Of Sherrie Rivera MD disc displacement at C5-C6 level M50.223 Other cervical disc displacement at C6-C7 level M50.122 Cervical disc disorder at C5-C6 level with radiculopathy M50.123 Cervical disc disorder at C6-C7 level with radiculopathy Office Visit 03/09/2017 4:20p Sherrie Internal Agus Zamorano, ORTHOPAEDIC DOCTOR M25.561 Pain in right Medicine - [facility] knee Office Visit 02/15/2017 8:45a Pulmonology And Kristine R06.83 Snoring Sleep Services Of MD Erika [facility] E66.09 Other obesity due to excess calories Office Visit 02/14/2017 Neurosurgery Vassilios M54.2 Cervicalgia 2:00p [facility] MD Nicole Office Visit 02/03/2017 DoNotUse [facility] Jordy Gramajo K62.5 Hemorrhage of 3:20p Internal Viry Vuong anus and rectum Medicine-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, lumbar region Office Visit 01/06/2017 9:20a [facility] Internal Agus Zamorano M51.16 Intervertebral disc Medicine - ORTHOPAEDIC DOCTOR [facility] rad[facility], lumbar region E78.5 Hyperlipidemia, unspecified I10 Essential (primary) hypertension R94.5 Abnormal results of liver function studies Office Visit 12/22/2016 11:00a [facility] Internal Agus Zamorano, I10 Essential ( primary) Medicine - [facility] ORTHOPAEDIC DOCTOR hypertension F10.10 Alcohol abuse, uncomplicated R53.83 Other fatigue R06.83 Snoring R79.82 Elevated C-reactive protein (CRP) M25.561 Pain in right knee Z13.220 Encounter for screening for lipoid disorders R07.89 Other chest pain Plan of Treatment Future Appointment(s):02/06/2019 4:00 pm - Helen Barton MD at [facility]2018 - Helen Barton MDF17.210 Nicotine dependence, cigarettes, uncomplicatedNew Medication:Nicotine Step 3 7 mg/24HR - apply the patch once a dayNicotrol 10 mg - 1 cartridges every 2 hours as twqlmcX50 Essential (primary) hypertensionComments:Your blood pressure is fine. Continue the same medicationFollow up:F/u 4 tlyjxcM88.90 Acute sinusitis, unspecifiedNew Medication:Amoxicillin/Clavulanate Potassium 875-125 mg - 1 by mouth twice a day
--- OUTSIDE RECORDS SUMMARY | 2018-10-11 07:28 | XMS REPORT | Continuity of Care Document ---
:1970 External Reference #:[id number] Author Name AJAY Moreno Address [address] [place] [address] Care Team Providers Name Role Phone Helen Marie M.D. Primary Care Physician Unavailable Payers Date Identification Numbers Payment Provider Subscriber Effective: 2016 Policy Number: [id number] [facility] Carmelo Chang Group Number: [employer] # [id number] Group Name: [place] [address] PayID: [id number] Problems Active Problems Provider Date Pruritus of skin Gabi Jackson M.D. Onset: 01/18/2018 Contact dermatitis Gabi Jackson M.D. Onset: 01/18/2018 Urticaria Gabi Jackson M.D. Onset: 07/12/2017 Angioedema Gabi Jackson M.D. 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 daily smokes every day Allergies, Adverse Reactions, Alerts Active Allergies Reaction Severity Comments Date Lisinoprol swollen lips 09/12/2018 Medications Active Medications SIG Qnty Indications Ordering Date Provider Hydroxyzine HCL 1-2 tabs by mouth 60tabs L30.9 [facility] bedtime as needed M.D. Prednisone 8 tabs by mouth 36tabs L30.9 [facility] 5mg Tablets everyday x 3 days, Pieretti, 8 then 4 tabs by mouth M.D. everyday x 3 days, then stop Hydrochlorothiazide one tab daily Unknown Unsure 0 Tablets Amlodopine one tab daily Unknown 10mg 0 Epinephrine Inject Unknown 0.3mg/0.3ML Intramuscularly Two 0 Solution Auto-Inject Times A Day Famotidine Dianelys, 20mg Tablets Robin Ghotra MD 0 Oxycodone HCL Barnett, 10mg Tablets RHONDA Silverman 0 Lidocaine Barnett, 4% Cream RHONDA Silverman 0 Vital Signs Date Vital Result Comment 09/12/2018 2:20pm Height 72 inches 6'0" patient stated Weight 218.00 lb Weight 98.885 kg Respiratory Rate 20 /min Heart Rate 85 /min Body Temperature 97.1 F O2 % BldC Oximetry 95 % BP Systolic 116 mmHg BP Diastolic 75 mmHg BMI (Body Mass Index) 29.6 kg/m2 01/18/2018 8:46am Height 72 inches 6'0" patient stated Weight 229.00 lb Weight 103.874 kg Respiratory Rate 18 /min Heart Rate 79 /min O2 % BldC Oximetry 98 % BP Systolic 135 mmHg BP Diastolic 96 mmHg BMI (Body Mass Index) 31.1 kg/m2 08/16/2017 5:32pm Height 72 inches 6'0" patient stated Weight 240.00 lb Weight 108.864 kg Respiratory Rate 20 /min Heart Rate 85 /min O2 % BldC Oximetry 98 % BP Systolic 145 mmHg BP Diastolic 96 mmHg BMI (Body Mass Index) 32.5 kg/m2 07/12/2017 5:07pm Height 73 inches 6'1" Weight 240.00 lb Weight 108.864 kg Respiratory Rate 18 /min Heart Rate 88 /min O2 % BldC Oximetry 98 % BP Systolic 140 mmHg Rechecked with manual 140/90 BP Diastolic 90 mmHg Rechecked with manual 140/90 BMI (Body Mass Index) 31.7 kg/m2 03/31/2017 9:41am Height 73 inches 6'1" Weight 241.00 lb Weight 109.318 kg Respiratory Rate 18 /min Heart Rate 99 /min Body Temperature 98.0 F BP Systolic 131 mmHg BP Diastolic 95 mmHg BMI (Body Mass Index) 31.8 kg/m2 10/21/2016 4:29pm Height 73 inches 6'1" Weight 226.00 lb Weight 102.514 kg Respiratory Rate 20 /min Heart Rate 89 /min O2 % BldC Oximetry 97 % BP Systolic 145 mmHg 134/92 manual BP Diastolic 101 mmHg 134/92 manual BMI (Body Mass Index) 29.8 kg/m2 09/28/2016 9:08am Height 73 inches 6'1" Weight 231.00 lb Weight 104.782 kg Respiratory Rate 16 /min Heart Rate 73 /min O2 % BldC Oximetry 98 % BP Systolic 123 mmHg BP Diastolic 91 mmHg BMI (Body Mass Index) 30.5 kg/m2 Results Test Date Facility Test Result H/L Range Note Laboratory test 12/08/2016 [facility] CRP High 1.93 mg/L N [address] [place] [address] [phone] CBC With Auto 10/16/2016 [facility] White Blood 7.4 10^3/uL N 3.5-10.[address] [place] [address] [phone] Red Blood Count 4.72 10^6/uL N 4.0-5.4 Hemoglobin 14.3 g/dL N 14.0-18.0 Hematocrit 42 % N 42-52 Mean Corpuscular Volume 88 fL N 80-94 Mean Corpuscular Hemoglobin 30 pg N 27-31 Mean Corpuscular HGB Conc 34 g/dL N 31-36 Red Cell Distribution Width 12 % N 10.5-15 Platelet Count 176 10^3/uL N 150-450 Mean Platelet Volume 9 um3 N 7.4-10.4 Abs Neutrophils 3.7 10^3/uL N 1.5-7.7 Abs Lymphocytes 2.7 10^3/uL N 1.0-4.8 Abs Monocytes 0.6 10^3/uL N 0-0.8 Abs Eosinophils 0.5 10^3/uL N 0-0.6 Abs Basophils 0 10^3/uL N 0-0.2 Abs Nucleated RBC 0 10^3/uL N Granulocyte % 49.1 % N 38-83 Lymphocyte % 36.5 % N 25-47 Monocyte % 7.8 % N 1-9 Eosinophil % 6.1 % High 0-6 Basophil % 0.5 % N 0-2 Nucleated Red Blood Cells % 0 N Laboratory test 10/16/2016 [facility] CRP High 5.21 mg/L N [address] [place] [address] [phone] Complement C4 38 mg/dL N 14 - 40 3 C1 Esterase Inhibitor Ag 37 mg/dL N 19 - 37 4 C1 Esterase Inhibitor Function >90 %ofnorm N 5 Peanut, IgE w/ Reflex < 0.10 kU/L N 6 Anti Nuclear Antibody 0.2 U N 7 1 Low risk: <1.00 Average risk: 1.00-3.00 High risk: >3.00 2 Low risk: <1.00 Average risk: 1.00-3.00 High risk: >3.00 3 Test Performed by: [address] [address] 4 Test Performed by: [address] [address] 5 REFERENCE VALUE >67 (Normal) 41-67 (Equivocal) <41 (Abnormal) Test Performed by: [address] [address] 6 Class 0 (Negative <0.10) Reflex testing to peanut components not performed due to undetectable total peanut IgE. Test Performed by: [facility] - [address] [address] 7 REFERENCE VALUE <=1.0 (Negative) Test Performed by: [address] [address] Encounters Type Date Location Provider Dx Diagnosis Office Visit 09/12/2018 [facility] Funmi Eugene, L29.9 Pruritus, 2:00p PEAR PICKER-C unspecified T78.3xxA Angioneurotic edema, initial encounter Office Visit 01/18/2018 8:40a [facility] Jackson L30.9 Dermatitis MDarrionDDarrion unspecified L29.9 Pruritus, unspecified Office Visit 08/16/2017 5:20p [facility] Funmi Z23 Encounter for [place], PEAR PICKER-C immunization L50.9 Urticaria, unspecified F17.210 Nicotine dependence, cigarettes, uncomplicated T78.3xxA Angioneurotic edema, initial encounter Office Visit 07/12/2017 5:00p [facility] Gabi Malave L50.9 Urticaria, Viry Jackson unspecified Office Visit 03/31/2017 9:40a [facility] Funmi Eugene, Z23 Encounter for [employer] P[employer]ER-C immunization T78.3xxA Angioneurotic edema, initial encounter Office Visit 10/21/2016 [facility] Arlene T78.3xxA Angioneurotic 4:20p Office Placido, PEAR PICKER-C edema, initial encounter F17.210 Nicotine dependence, cigarettes, uncomplicated Z68.29 Body mass index (BMI) 29.0-29.9, adult Office Visit 09/28/2016 Rehan Malave T78.3xxA Angioneurotic 9:00a Office Pieretti, M.D. edema, initial encounter Z23 Encounter for immunization Z68.30 Body mass index (BMI) 30.0-30.9, adult Plan of Treatment Future Appointment(s):10/03/2018 3:00 pm - AJAY Moreno at [facility]09/12/2018 - RHONDA Moreno-CL29.9 Pruritus, pyjxefmcepsE71.3xxA Angioneurotic edema, initial encounterNew Labs:Tryptase, Serum, Ordered: Recommendations:Continue all medications as prescribed.Refrain from wearing perfumes/scented colognes while visitingour office. Continue the medications the [facility] prescribed Sucralfate, prednisolone and famotidine Continue the Hydroxyzine at night Get the tryptase level done
--- NOTE | 2018-10-11 08:47 | ED ---
Throat Pain/Nasal Congestion - HPI Summary HPI Summary: Patient is a 48-year-old male presents to the ED with chief complaint of cat scratch to the left eye. Denies any difficulty with vision or change in vision. He is endorsing tearing from the left eye and redness. This is from his kitten with immunizations up to date. Endorses pain 8/10. Denies any other concerns. - History of Current Complaint Chief Complaint: EDEyeProblem Time Seen by Provider: 10/11/18 06:52 Hx Obtained From: Patient Onset/Duration: Sudden Onset Severity: Moderate - Epiglottits Risk Factors Epiglottis Risk Factors: Negative - Allergies/Home Medications Allergies/Adverse Reactions: Allergies Allergy/AdvReac Type Severity Reaction Status Date / Time lisinopril Allergy Severe SEVERE Verified 09/20/18 08:59 swelling of lips PMH/Surg Hx/FS Hx/Imm Hx Previously Healthy: Yes Endocrine/Hematology History: Denies: Hx Bone Marrow Disease, Hx Diabetes, Hx Sickle Cell Disease, Hx Thyroid Disease, Hx Anemia Cardiovascular History: Reports: Hx Coronary Artery Disease, Hx Hypertension - CLEARANCE BY ISHAAN BARTON- ON CHART, Other Cardiovascular Problems/Disorders - HIGH CHOLESTEROL Denies: Hx Myocardial Infarction, Hx Pacemaker/ICD Respiratory History: Reports: Hx Sleep Apnea, Other Respiratory Problems/ Disorders - DEVIATED SEPTUM, SINUSITIS AND NASAL POLYPS Denies: Hx Asthma, Hx Chronic Obstructive Pulmonary Disease (COPD) GI History: Reports: Hx Gastroesophageal Reflux Disease Denies: Hx Ulcer History: Denies: Hx Renal Disease Musculoskeletal History: Reports: Hx Arthritis, Other Musculoskeletal History - cervical DD w/ Lt side radiculopathy Denies: Hx Scoliosis Sensory History: Denies: Hx Cataracts, Hx Contacts or Glasses, Hx Glaucoma, Hx Hearing Aid Opthamlomology History: Denies: Hx Cataracts, Hx Contacts or Glasses, Hx Glaucoma Neurological History: Denies: Hx Headaches Psychiatric History: Denies: Hx Panic Disorder - Surgical History Surgery Procedure, Year, and Place: ARTHROSCOPY RIGHT KNEE 06/16/15 Hx Anesthesia Reactions: No - Immunization History Hx Pertussis Vaccination: No Immunizations Up to Date: Yes Infectious Disease History: Yes Infectious Disease History: Reports: Hx of Known/Suspected MRSA Denies: Hx Clostridium Difficile, Hx Hepatitis, Hx Human Immunodeficiency Virus (HIV), Hx Shingles, Hx Tuberculosis, Hx Known/Suspected VRE, Hx Known/ Suspected VRSA, History Other Infectious Disease, Traveled Outside the [place] in Last 30 Days - Family History Known Family History: Positive: Cardiac Disease - [place] (grandmother), Hypertension , Other - CVA (mother), liver failure from EtOH (father) - Social History Occupation: Employed Full-time Lives: With Family Alcohol Use: Daily Alcohol Amount: 3 beers/day Hx Substance Use: No Substance Use Type: Reports: None Substance Use Comment - Amount & Last Used: marijuana use 2-5 X per day Hx Tobacco Use: Yes Smoking Status (MU): Current Every Day Smoker Type: Cigarettes Amount Used/How Often: 5 cigarettes/day, marijuana 2-5 joints/day Length of Time of Smoking/Using Tobacco: 15 yrs Have You Smoked in the Last Year: Yes Review of Systems Constitutional: Negative Negative: Fever, Chills, Fatigue, Skin Diaphoresis Negative: Photophobia, Blurred Vision, Diplopia, Drainage, Erythema Negative: Palpitations, Chest Pain Negative: Shortness Of Breath, Cough Negative: Rash, Bruising Neurological: Negative All Other Systems Reviewed And Are Negative: Yes Physical Exam Triage Information Reviewed: Yes Vital Signs On Initial Exam: Initial Vitals Temp Pulse Resp BP Pulse Ox 96.5 F 70 18 134/104 95 10/11/18 06:44 10/11/18 06:44 10/11/18 06:44 10/11/18 06:44 10/11/18 06:44 Vital Signs Reviewed: Yes Appearance: Positive: Well-Appearing, Well-Nourished Skin: Positive: Warm, Skin Color Reflects Adequate Perfusion Head/Face: Positive: Normal Head/Face Inspection Eyes: Positive: Conjunctiva Clear, Conjunctiva Inflammed - tearing Neck: Positive: Supple, No Lymphadenopathy Respiratory/Lung Sounds: Positive: Clear to Auscultation, Breath Sounds Present Cardiovascular: Positive: RRR, Pulses are Symmetrical in both Upper and Lower Extremities Musculoskeletal: Positive: Strength/ROM Intact Neurological: Positive: Speech Normal Psychiatric: Positive: Affect/Mood Appropriate AVPU Assessment: Alert Diagnostics - Vital Signs Vital Signs Temp Pulse Resp BP Pulse Ox 10/11/18 07:20 96.5 F 70 18 134/104 95 10/11/18 06:44 96.5 F 70 18 134/104 95 - Laboratory Lab Statement: Any lab studies that have been ordered have been reviewed, and results considered in the medical decision making process. 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 After scanning the eye with fluorosceine uptake using tetracaine analgesic, the upper and lower lids retracted to allow for assessment of FB under the eye lids. No obvious perforation with teardrop pupil, vitreous extrusion, or protruding intraocular foreign body. No orbital compartment syndrome, hyphema, subconjunctival hemorrhage, evidence of increased intraorbital pressure. Patient denies visual changes. There is an abrasion across the the cornea measuring .4cm in length. No evidence of ulceration. Patient is given ciprofloxacin 1-2 drops in left eye 4 times daily 5 days. Patient is encouraged to follow up with opthomology today if symptoms persist or worsen. Pain management given in the ED and rx sent. Patient agrees to plan and is discharged to home. - Differential Diagnoses Differential Diagnoses: Other - cat scratch, corneal abrasion, corneal ulcer - Diagnoses Provider Diagnoses: Corneal abrasion Discharge - Sign-Out/Discharge Documenting (check all that apply): Patient Departure Patient Received Moderate/Deep Sedation with Procedure: No - Discharge Plan Condition: Stable Disposition: HOME Prescriptions: Hydrocodone/Acetamin 10/325(NF [Marianna 10/325 (NF)] 1 tab PO Q8H #3 tab MDD 3 Patient Education Materials: Corneal Abrasion (ED) Forms: *Work Release Referrals: Darby Peters MD [Primary Care Provider] - Tyler Ayala MD [Medical Doctor] - Additional Instructions: 1-2 drops to the left eye FOUR TIMES DAILY for 5 days Please follow up with ophthalmology - I have given you a referral - Billing Disposition and Condition Condition: STABLE Disposition: Home
== END 2018-10-11 07:20 | disposition home or self-care (01) ==
LOC: ED 06:44
DX: S05.02XA Injury of conjunctiva and corneal abrasion without foreign body, left eye, initial encounter (principal); F17.210 Nicotine dependence, cigarettes, uncomplicated; W55.03XA Scratched by cat, initial encounter
CPT/HCPCS: 99282; A9270-GY